=== PATIENT | female | born 1980 | race Caucasian/White ===

== ENCOUNTER 2021-11-21 08:24 | Outpatient (CLI) | payer MEDICARE, OTHER, SELFPAY ==
[2021-11-21 12:52] LABS: Free T4 Free Thyroxine* 0.97 ng/dL (0.70-1.85)
[2021-11-21 13:06] LABS: Thyroid Stimulating Hormone* 0.784 uIU/mL (0.270-4.20)
== END 2021-11-21 08:25 | disposition home or self-care (01) ==
PROVIDERS: PCP Family Medicine; Visit Provider Family Medicine
DX: N91.2 Amenorrhea, unspecified (principal); R79.89 Other specified abnormal findings of blood chemistry; E66.9 Obesity, unspecified
CPT/HCPCS: 84439; 84443

== ENCOUNTER 2022-05-15 09:39 | Outpatient (CLI) | payer MEDICARE, BC, SELFPAY ==
[2022-05-15 12:40] LABS: Albumin* 4.7 g/dL (3.3-5.0)
[2022-05-15 12:41] LABS: Chloride* 105 mmol/L (96-114); Potassium* 4.2 mmol/L (3.6-5.1); Sodium* 141 mmol/L (135-149)
[2022-05-15 12:43] LABS: Bilirubin Total* 0.6 mg/dL (0.1-1.5); Carbon Dioxide* 26 mmol/L (20-32); Cholesterol* 252 mg/dL (90-199); Creatinine* 0.9 mg/dL (0.5-1.5); Estimated Glomerular Filt Rate 82 ml/min; Total Protein* 7.7 g/dL (6.0-8.3)
[2022-05-15 12:44] LABS: Alanine Aminotransferase* 43 U/L (4-35); Alkaline Phosphatase* 81 U/L (40-150); Aspartate Amino Transferase* 32 U/L (12-35); Blood Urea Nitrogen* 21 mg/dL (5-24); Calcium* 9.8 mg/dL (8.4-10.6); Glucose* 86 mg/dL (60-115); HDL Cholesterol* 81 mg/dL (>=50); LDL Cholesterol Calculated 147 mg/dL (<100); Triglycerides* 119 mg/dL (40-149)
[2022-05-15 13:11] LABS: Thyroid Stimulating Hormone* 0.148 uIU/mL (0.270-4.20)
== END 2022-05-15 09:40 | disposition home or self-care (01) ==
PROVIDERS: PCP Family Medicine; Visit Provider Family Medicine
DX: E87.6 Hypokalemia (principal); R53.83 Other fatigue; R73.03 Prediabetes; Z79.899 Other long term (current) drug therapy; N91.2 Amenorrhea, unspecified; E66.9 Obesity, unspecified
CPT/HCPCS: 80053; 80061; 84443

== ENCOUNTER 2022-06-11 12:51 | Outpatient (CLI) | payer MEDICARE, BC, SELFPAY | END 2022-06-11 12:52 | disposition home or self-care (01) | LOC: LKVREF 12:52 | PROVIDERS: PCP Family Medicine; Visit Provider Family Medicine | DX: N91.2 Amenorrhea, unspecified (principal); R79.89 Other specified abnormal findings of blood chemistry | CPT/HCPCS: 84443 ==

== ENCOUNTER 2023-03-02 11:35 | Outpatient (CLI) | payer MEDICARE, BC, SELFPAY | END 2023-03-02 11:36 | disposition home or self-care (01) | PROVIDERS: PCP Family Medicine; Visit Provider Family Medicine | DX: E11.9 Type 2 diabetes mellitus without complications (principal); R63.5 Abnormal weight gain; R73.03 Prediabetes; E87.6 Hypokalemia; E16.2 Hypoglycemia, unspecified; R53.83 Other fatigue; E66.9 Obesity, unspecified; M10.9 Gout, unspecified; Z13.6 Encounter for screening for cardiovascular disorders; Z79.899 Other long term (current) drug therapy | CPT/HCPCS: 80053; 80061; 82043; 82570 ==

== ENCOUNTER 2023-06-15 10:03 | Outpatient (CLI) | payer MEDICARE, BC, SELFPAY ==
--- OUTSIDE RECORDS SUMMARY | 2023-06-15 10:13 | XMS_ITS | Encounter Summary ---
Author Name Unknown Organization [facility] Address [address] [place] [address] Care Team Providers Care Campus Wellness Coordinator Name Role Phone None Reported, Pcp Primary Care Provider Unavail able Encounter Details Date Type Department Care Team (Latest Contact Info) Description 07/22/2022 Clinical Communication Division of route returner in [place], [place] [address] [place] [address] Ector Anaya M.D., D.M.D. [address] [place] [address] Social History Tobacco Use Types Packs/Day Years Used Date Smoking Tobacco: Never Smokeless Tobacco: Never Alcohol Use Standard Drinks/Week Comments No 0 (1 standard drink = 0.6 oz pur e alcohol) Social Connection and Isolat ion Panel [NHANES] Answer Date Recorded In a typical week, how many times do you talk on the phone with family, friends, or neighbors? More than three times a week 04/14/2021 How often do you get togethe r with friends or relatives? Once a week 04/14/2021 How often do you attend chur ch or islam services? Patient declined 04/14/2021 Do you belong to any clubs o r organizations such as pentecostalism groups, unions, fraternal or athletic groups, or school groups? No 04/14/2021 How often do you attend meet ings of the clubs or organizations you belong to? Patient declined 04/14/2021 Are you , , di vorced, , never , or living with a partner? 04/14/2021 AUDIT-C Answer Date Recorded Q1: How often do you have a drink containing alc ohol? Never 04/14/2021 Average Number of Drinks Not on file Frequency of Binge Drinking Not on file 04/02 Overall Financial Resource Strain (CARDIA) Answe r Date Recorded How hard is it for you to pa y for the very basics like food, housing, medical care, and heating? Somewhat hard 04/14/2021 [facility] Occupat [facility] - Occupational Stress Questionnaire Answer Date Recorded Do you feel stress - tense, restless, nervous, or anxious, or unable to sleep at night because your mind is troubled all the time - these days? Very much 04/14/2021 Exercise Vital Sign Answer Date Recorde d On average, how many days pe r week do you engage in moderate to strenuous exercise (like a brisk walk)? 6 days 04/14/2021 On average, how many minutes do you engage in exercise at this level? 60 min 04/14/2021 Hunger Vital Sign Answer Date Recorded Within the past 12 months, y ou worried that your food would run out before you got the money to buy more. Sometimes true Within the past 12 months, t he food you bought just didn't last and you didn't have money to get more. Never true PRAPARE - Transportation Answer Date Re corded In the past 12 months, has l ack of transportation kept you from medical appointments or from getting medications? No 04/02 In the past 12 months, has l ack of transportation kept you from meetings, work, or from getting things needed for daily living? No 04/14/2021 Housing Stability Vital Sign Answer Naif e Recorded In the last 12 months, was t here a time when you were not able to pay the mortgage or rent on time? No 04/14/2021 In the last 12 months, how many places have you lived? 1 04/14/2021 In the last 12 months, was t here a time when you did not have a steady place to sleep or slept in a care home (including now)? No 04/14/2021 Nutrition Answer Date Recorded Nutrition: EVOO Fat Source No 04/14 On average, how many serving s of fruits and vegetables do you eat per day (serving size is equal to 1 cup or approximately the size of a tennis ball)? 0-1 04/14/2021 Dental Answer Date Recorded Dental: Regular Dentist Yes 05/11/19 Employment Answer Date Recorded Employment status Permanently disabled Education Answer Date Recorded What is the highest level of school you have completed or the highest degree you have received? Associate degree: occupational, technical, or vocational program 04/14/2021 Sex and Gender Information Value Date Recorded Sex Assigned at Female 04/19/2017 7:28 PM LAGGING MACHINE OPERATOR Gender Identity Female 04/19/2017 7:28 PM LAGGING MACHINE OPERATOR Sexual Orientation Straight 04/19/2017 7: 28 PM LAGGING MACHINE OPERATOR documented as of this encounter Miscellaneous Notes * Telephone Encounter - Sailaja Perdomo APRN, C.N.P., M.S. - 07/22/2022 9:31 AM CDT Return phone call to patient to discuss concerns. Patient states she has an adhesive allergy in still has the chin tape on her chin from July 17 when she had a LeFort and genioplasty. Discussed that the goal of the tape is to last for 5 days and she is now at that point. The tape may be removed along with adhesive by gently washing with warm soapy water to remove the adhesive. I did discuss she should take Claritin or Zyrtec daily and may also apply Benadryl cream oral low strength hydrocortisone cream to her chin twice daily for the next 4-5 days. documented in this encounter Plan of Treatment Not on file documented as of this encounter Visit Diagnoses Not on filedocumented in this encounter Additional Health Concerns Assessment Noted Time PHQ-9 Depression Total Score: 12 016 2:38 PM CDT documented as of this encounter Care Teams Campus Wellness Coordinator Relationship Specialty Start Date End Date None Reported, Pcp PCP - General Family Medicine 07/17/22 documented as of this encounter
--- OUTSIDE RECORDS SUMMARY | 2023-06-15 10:13 | XMS_ITS | Clinical Summary ---
Author Name Unknown Organization [facility] Address [address] [place] [address] Care Team Providers Care Medical Geneticist Name Role Phone None Reported, Pcp Primary Care Provider Unavail able Source Comments Patient records contain information from all sites at [facility]. For routine questions regarding patient records, call [phone] during business hours, M-F 8:00 AM - 5:00 PM Central Time. Record requests for emergency care only can be directed to [phone] at any time.[facility] Allergies Active Allergy Reactions Criticality Noted Date Comments Adhesive Rash 07/17/2022 Gluten GI intolerance 08/11/2017 Pollen Extracts Other (see comments) 09/10/2016 Medications Medication Sig Dispensed Refills Start Date End Date Status albuterol (for_PROVENTIL HFA,VENTOLIN HFA) 90 mcg/actuation inhaler Inhale 2 puffs every 6 (six) hours as needed for shortness of breath or wheezing. 0 07/27/2010 Active rizatriptan (for_MAXALT) 10 mg tablet Take 10 mg by mouth every 2 (two) hours as needed for migraine. Max dose: 30 mg per 24 hours. 0 Active ibuprofen (ADVIL,MOTRIN) 800 mg tablet Take 800 mg by mouth every 8 (eight) hours as needed for pain. 0 03/14/2018 Active enoxaparin (LOVENOX) 30 mg/0.3 mL injection Inject 0.3 mL (30 mg total) under the skin 2 (two) times a day for 7 days. 4.2 mL 0 07/10/2022 Active furosemide (LASIX) 20 mg tablet Take 20 mg by mouth daily as needed (swelling). 0 06/15/2022 Active naloxegoL (MOVANTIK) 25 mg tablet Take 25 mg by mouth every morning. 0 07/10/2022 Active spironolactone (ALDACTONE) 100 mg tablet Take 100 mg by mouth daily. 0 05/06/2022 Active acetaminophen (TYLENOL) 160 mg/5 mL liquid Take 31.3 mL (1,000 mg total) by mouth every 6 (six) hours as needed for pain. 473 mL 0 07/19/2022 Active chlorhexidine (PERIDEX) 0.12 % mouthwash Swish and spit 15 mL by mouth 2 (two) times a day. 473 mL 0 07/19/2022 Active polyethylene glycol (MIRALAX) 17 gram/dose oral powder Dissolve and take 17 grams by mouth daily as needed for constipation. Dissolve each 17 g dose in 240 mL (8 ounces) of beverage. 510 g 0 07/19/2022 Active sodium chloride (OCEAN) 0.65 % nasal spray Administer 1 spray into each nostril as needed (For congestion). 50 mL 12 07/19/2022 Active loratadine (CLARITIN) 10 mg tablet Take 1 tablet (10 mg total) by mouth daily. 30 tablet 0 07/19/2022 Active ondansetron ODT (ZOFRAN-ODT) 4 mg disintegrating tablet Dissolve 1 tablet (4 mg total) in the mouth every 8 (eight) hours as needed for nausea or vomiting. 20 tablet 0 07/19/2022 Active oxyCODONE (ROXICODONE) 5 mg/5 mL solutionIndications:A cute Pain,Acute Pain Exception Take 5 mL (5 mg total) by mouth every 4 (four) hours as needed for severe pain or score 7-10 of 10 Indication: Acute Pain, Acute Pain Exception. 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: Added automatically from request for surgery [id number] Obstructive Sleep Apnea Adult 04/23/2021 Overview: Added automatically from request for surgery [id number] Malocclusion 04/23/2021 Overview: Added automatically from request for surgery [id number] Degeneration Disc Lumbosacral 10/02/2019 Edema 10/02/2019 Spinal Stenosis Lumbosacral Region 10/02/2019 Hypoglycemia 01/18/2019 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, no personal history of DVT/PE Heterozygous, no personal history of DVT/PE Heterozygous, no personal history of DVT/PE Asthma Mild Persistent 05/31/2018 Obesity Unspecified 05/31/2018 Apnea Sleep Obstructive 05/31/2018 Anxiety 10/17/2017 Celiac Disease 10/17/2017 Mutation Factor V Leiden Heterozygous 12/11/2016 Major Depressive Disorder Single Episode Unspeci fied 09/03/2014 Overview: Depression Major One Episode NOS Asthma Moderate Persistent 12/18/2013 Overview: Asthma Moderate Persistent Hypertension Gestational 02/03/2011 Overview: Hypertension (gestational/transient), antepartum Immunizations Name Administration Dates Next Due DTaP (Infanrix, Tripedia) 06/24/2007 Influenza Split 05/18/2006 Influenza, Seasonal, Injectable 05/20/2007 MMR 08/31/2012 Tdap 06/30/2012,02/07/2011,06/24/2007 Family History Medical History Relation Name Comments Asthma Daughter Olviis Other cancer Father Juwan Brain tumor Diabetes Grandfather Maternal Heart disease Grandfather Maternal Blood disease Grandmother Maternal Diabetes Maternal Grandfather Jose Cancer Mother Mayte Diabetes Mother Mayte Hyperlipidemia Mother Mayte Hypertension Mother Mayte Other cancer Mother Mayte Cervical Ovarian cancer Mother Mayte ADD Son Seth Adhd Learning disorder Son Seth Autism Relation Name Status Comments Daughter Olviis Father Juwan Grandfather Maternal Grandmother Maternal Maternal Grandfather Jose Mother Mayte Ann Social History Tobacco Use Types Packs/Day Years Used Date Smoking Tobacco: Never Smokeless Tobacco: Never Tobacco Cessation:Counseling Given: Not Answered Alcohol Use Standard Drinks/Week Comments No 0 [...] week 04/14/2021 How often do you attend [facility] or christianity services? Patient declined 04/14/2021 Do you belong to any clubs o r organizations such as moravian groups, unions, fraternal or athletic groups, or [...] Average Number of Drinks Not on file 021 Frequency of Binge Drinking Not on file 04/02 Overall Financial Resource Strain (CARDIA) Answe r Date Recorded How hard is it for you to pa y for the very basics like food, housing, medical care, and heating? Somewhat hard 04/14/[address] [facility] Occupat ional [facility] - Occupational Stress Questionnaire Answer Date Recorded [...] place to sleep or slept in a custodial (including now)? No 04/14/2021 Nutrition Answer Date [...] Sex Assigned at Female 04/19/2017 7:28 PM CLAMMER Gender Identity Female 04/19/2017 7:28 PM CLAMMER Sexual Orientation Straight 04/19/2017 7: 28 PM CLAMMER Last Filed Vital Signs Vital Sign Reading Time Taken Comments Blood Pressure 128/68 07/19/2022 1:09 PM CDT Pulse 63 07/19/2022 1:09 PM CDT Temperature 36.4 ??C (97.5 ??F) 07/19/2022 1:09 PM CD T Respiratory Rate 16 07/19/2022 1:09 PM CDT Oxygen Saturation 97% 07/19/2022 1:09 PM CDT Inhaled Oxygen Concentration - - Weight 105 kg (232 lb 9.4 oz) 07/17/2022 6:21 PM CDT Height 165.1 cm (5' 5) 07/17/2022 6:21 PM CDT Body Mass Index 38.7 07/17/2022 6:21 PM CDT Plan of Treatment Health Maintenance Due Date Last Done Comments Depression Monitoring (PHQ-9) 1979 Hepatitis B Vaccines (1 of 3 - 3-dose series) 1979 Hepatitis C Screening 1979 Mammogram 1979 Office Visit for Blood Pressure Check / Re-check 1979 Visit: Chronic Disease, age 18+ 1979 Visit: Medicare Annual Wellness 1979 Pneumococcal vaccine (0-64 years) (1 of 2 - PCV) 09/27/1985 Asthma Action Plan 10/14/2016 12/06/2014 Asthma Control Test Questionnaire 10/14/2016 12/06/2014 Cervical Cancer Screening 08/12/2018 08/13/2015 Lipid (Cholesterol) Screening 12/25/2018 12/25/2013, 07/17/2011 COVID-19 Vaccine ( season) 2023 02/16/2021, 08/17/2020, 07/27/2020 Influenza Vaccine (#1) 2023 , 05/20/2007, 05/20/2007, Additional history exists Creatinine Level (Kidney Function Test) 02/09/2024 02/08/2023, 03/16/2020, 10/09/2019, Additional history exists Potassium Level 02/09/2024 02/08/2023, 03/03, 03/17/2020, Additional history exists Sodium Level 02/09/2024 02/08/2023, 07/01, 06/29/2018, Additional history exists DTaP,Tdap,and Td Vaccines (6 - Td or Tdap) 05/14/2029 05/14/2019, 06/30/2012, 02/07/2011, Additional history exists HIV Screening Completed 01/18/2012 HPV Vaccines Aged Out No longer eligi ble based on patient's age to complete this topic Medical Devices Implanted Type Area Carnival Worker Device Identifier Shelf Expiration Date Model / Serial / Lot Lester Sterlingt 1.5x2 - [id number] - [id number] Implanted:Qty: 1 on 07/17/2022 by Juwan Us M.D., D.D.S. at [facility] Bone or Tissue [employer] 05/03/2027 [id number] / [id number] / Hardware E.G. Pins/Screws/Ro ds Hardware e.g. pins/screws/r ods Back Scrw Mtr Mandib St 2.1x6 - [id number] Implanted:Qty: 1 on 07/17/2022 by Ector Anaya M.D., D.M.D. at [facility] Hardware e.g. pins/screws/r ods Maxilla Depuy Synthes [id number] / / Conversions - Default Historical Implant Device Implanted:08/31 (Quantity not on file) Mesh or Patch Left: Abdomen Description:Body Location - Abd LLQ. Device Status Text - MeshPatch. Stimulator Other Stimulator Other Left: Back Description:Nevro HF10 pain stimulator Advance Directives For more information, please contact: [phone] Latest Code Status on File Code Status Date Activated Date Inactivated Comments Full Code 07/17/2022 6:21 PM 07/19/2022 3:36 PM Question Answer Comments Full Code: Not Discussed Due to: Patient not available Care Teams Medical Geneticist Relationship Specialty Start Date End Date None Reported, Pcp PCP - General Family Medicine 07/17/22
--- OUTSIDE RECORDS SUMMARY | 2023-06-15 10:13 | XMS_ITS | Encounter Summary ---
Author Name Unknown Organization [facility] Address [address] [place] [address] Care Team Providers Care Mathematics Technician Name Role Phone None Reported, Pcp Primary Care Provider Unavail able Reason for Visit * Reason Comments Med Refill Encounter Details Date Type Department Care Team (Late st Contact Info) Description 11/11/2022 Refill Division of supervisor screen printing in [place], [place] [address] [place] [address] Jenn Tamez P.A.-C., M.S. [address] [place] [address] Med Refill Social History Tobacco Use Types Packs/Day Years [...] often do you attend chur ch or yazidi services? Patient declined 04/14/2021 Do you belong to any clubs o r organizations such as gnosticism groups, unions, fraternal or athletic groups, or [...] medical care, and heating? Somewhat hard 04/14/2021 [facility] [place] [facility] of Occupat ional [facility] - Occupational Stress Questionnaire Answer Date Recorded [...] place to sleep or slept in a snf (including now)? No 04/14/2021 Nutrition Answer Date [...] Sex Assigned at Female 04/19/2017 7:28 PM PRESSURE TESTER Gender Identity Female 04/19/2017 7:28 PM PRESSURE TESTER Sexual Orientation Straight 04/19/2017 7: 28 PM PRESSURE TESTER documented as of this encounter Plan of Treatment Not on file documented as of this encounter Visit Diagnoses Not on filedocumented in this encounter Additional Health Concerns Assessment Noted Time PHQ-9 Depression Total Score: 12 016 2:38 PM CDT documented as of this encounter Care Teams Mathematics Technician Relationship Specialty Start Date End Date None Reported, Pcp PCP - General Family Medicine 07/17/22 documented as of this encounter
--- OUTSIDE RECORDS SUMMARY | 2023-06-15 10:13 | XMS_ITS | Encounter Summary ---
Author Name Unknown Organization [facility] Address [address] [place] [address] Care Team Providers Care Rural Electrification Engineer Name Role Phone None Reported, Pcp Primary Care Provider Unavail able Reason for Visit * Reason Comments Med Refill Encounter Details Date Type Department Care Team (Late st Contact Info) Description 09/15/2022 Refill Division of communications systems engineer in [place], [place] [address] [place] [address] Jenn Tamez P.A.-C., M.S. [address] [place] [address] Med Refill Social History Tobacco Use Types [...] often do you attend chur ch or cheondoism services? Patient declined 04/14/2021 Do you belong to any clubs o r organizations such as zoroastrianism groups, unions, fraternal or athletic groups, or [...] medical care, and heating? Somewhat hard 04/14/2021 [facility] of Occupat ional [facility] - Occupational Stress Questionnaire Answer Date Recorded [...] place to sleep or slept in a [place] [facility] [place] facility (including now)? No 04/14/2021 Nutrition Answer Date [...] Sex Assigned at Female 04/19/2017 7:28 PM ROLL LINE OPERATOR Gender Identity Female 04/19/2017 7:28 PM ROLL LINE OPERATOR Sexual Orientation Straight 04/19/2017 7: 28 PM ROLL LINE OPERATOR documented as of this encounter Plan of Treatment Not on file documented as of this encounter Visit Diagnoses Not on filedocumented in this encounter Additional Health Concerns Assessment Noted Time PHQ-9 Depression Total Score: 12 016 2:38 PM CDT documented as of this encounter Care Teams Rural Electrification Engineer Relationship Specialty Start Date End Date None Reported, Pcp PCP - General Family Medicine 07/17/22 documented as of this encounter
--- OUTSIDE RECORDS SUMMARY | 2023-06-15 10:13 | XMS_ITS | Encounter Summary ---
Author Name Unknown Organization [facility] Address [address] [place] [address] Care Team Providers Care Flap Maker Name Role Phone None Reported, Pcp Primary Care Provider Unavail able Reason for Referral * Outpatient (Routine) - Authorized Specialty Diagnoses / Procedures Referred By Frandy acevedo Referred To Contact Dermatology Diagnoses Follow Up Examination Status Post Surgery Procedures Professional Photography Services Ector Anaya M.D., [place]. [address] [place] [address] [facility] Referral ID Status Reason Start Date Expiration Date V isits Requested Visits Authorized [id number] Authorized 10/14/2022 10/14/2023 1 1 * Outpatient (Routine) - Authorized Specialty Diagnoses / Procedures Referred By Frandy acevedo Referred To Contact extrusion line operator Ector Anaya M.D., [place]ad[place]itt[place] [address] [place] [address] [facility] Referral ID Status Reason Start Date Expiration Date V isits Requested Visits Authorized [id number] Authorized 10/14/2022 10/13/2025 1 1 Scheduling Instructions M12 approx 07/18 with photos after Encounter Details Date Type Department Care Team (Late st Contact Info) Description 10/14/2022 Orders Only Division of extrusion line operator in [place], [place] [address] [place] [address] Rae Casey L.D.A. Follow Up Examination Status Post Surgery (Primary Dx) Social History Tobacco Use Types Packs/Day Years [...] 04/14/2021 How often do you attend chur or spiritism services? Patient declined 04/14/2021 Do you belong to any clubs o r organizations such as holiness groups, unions, fraternal or athletic groups, or [...] medical care, and heating? Somewhat hard 04/14/2021 [facility] [facility] Occupat ional Health - Occupational Stress [...] place to sleep or slept in a fci (including now)? No 04/14/2021 Nutrition Answer Date [...] Sex Assigned at Female 04/19/2017 7:28 PM ACCOUNTANT SYSTEMS Gender Identity Female 04/19/2017 7:28 PM ACCOUNTANT SYSTEMS Sexual Orientation Straight 04/19/2017 7: 28 PM ACCOUNTANT SYSTEMS documented as of this encounter Plan of Treatment Scheduled Orders Name Type Priority Associated Diagnoses Orde r Schedule Professional Photography Services Procedures Routine Follow Up Examination Status Post Surgery Expected: 07/06/2023 (Approximate), Expires: 01/15/2024 Scheduled Referrals Name Type Priority Associated Diagnoses Order Schedule extrusion line operator office visit (clinic) Outpatient Referral Routine Expected: 07/19/2023 (Approximate), Expires: 01/15/2024 documented as of this encounter Visit Diagnoses Diagnosis Follow Up Examination Status Post Surgery- Primary documented in this encounter Additional Health Concerns Assessment Noted Time PHQ-9 Depression Total Score: 12 016 2:38 PM CDT documented as of this encounter Care Teams Flap Maker Relationship Specialty Start Date End Date None Reported, Pcp PCP - General Family Medicine 07/17/22 documented as of this encounter
--- OUTSIDE RECORDS SUMMARY | 2023-06-15 10:13 | XMS_ITS | Encounter Summary ---
Author Name Unknown Organization [facility] Address [address] [place] [address] Care Team Providers Care Sample Puller Name Role Phone None Reported, Pcp Primary Care Provider Unavail able Reason for Referral * Outpatient (Routine) - Closed Specialty Diagnoses / Procedures Referred By Frandy acevedo Referred To Contact Ector Anaya M.D., [address] [place] [address] Health System Referral ID Status Reason Start Date Expiration Date Visits Re quested Visits Authorized [id number] Closed 07/16/2022 07/15/2025 1 1 Scheduling Instructions M108/31 @ 11:20 portal Reason for Visit * Outpatient (Routine) - Closed Specialty Diagnoses / Procedures Referred By Frandy acevedo Referred To Contact Ector Anaya M.D., [address] [place] [address] Health System Referral ID Status Reason Start Date Expiration Date Visits Re quested Visits Authorized [id number] Closed 07/16/2022 07/15/2025 1 1 Encounter Details Date Type Department Care Team (Latest Contact Info) Description 08/31/2022 10:45 AM CDT - 08/31/2022 11:59 PM CDT Hospital Encounter Division of quality assurance coordinator in [place], [place] [address] [place] [address] Ector Anaya M.D., Davina. [address] [place] [address] Follow Up Surgery Exam (Primary Dx) Discharge Disposition: Home or Self Care Social History Tobacco Use Types Packs/Day Years [...] often do you attend chur ch or jainism services? Patient declined 04/14/2021 Do you belong to any clubs o r organizations such as episcopalian groups, unions, fraternal or athletic groups, or [...] medical care, and heating? Somewhat hard 04/14/2021 [facility] [place] [facility] Occup[facility] - Occupational Stress [...] place to sleep or slept in a half-way (including now)? No 04/14/2021 Nutrition Answer Date [...] Sex Assigned at Female 04/19/2017 7:28 PM GROCERY STORE COURTESY CLERK Gender Identity Female 04/19/2017 7:28 PM GROCERY STORE COURTESY CLERK Sexual Orientation Straight 04/19/2017 7: 28 PM GROCERY STORE COURTESY CLERK documented as of this encounter Medications at Time of Discharge Medication Sig Dispensed Refills Start Date End Date acetaminophen (TYLENOL) 160 mg/5 mL liquid Take 31.3 mL (1,000 mg total) by mouth every 6 (six) hours as needed for pain. 473 mL 0 07/19/2022 albuterol (for_PROVENTIL HFA,VENTOLIN HFA) 90 mcg/actuation inhaler Inhale 2 puffs every 6 (six) hours as needed for shortness of breath or wheezing. 0 07/27/2010 chlorhexidine (PERIDEX) 0.12 % mouthwash Swish and spit 15 mL by mouth 2 (two) times a day. 473 mL 0 07/19/2022 furosemide (LASIX) 20 mg tablet Take 20 mg by mouth daily as needed (swelling). 0 06/15/2022 ibuprofen (ADVIL,MOTRIN) 800 mg tablet Take 800 mg by mouth every 8 (eight) hours as needed for pain. 0 03/14/2018 loratadine (CLARITIN) 10 mg tablet Take 1 tablet (10 mg total) by mouth daily. 30 tablet 0 07/19/2022 naloxegoL (MOVANTIK) 25 mg tablet Take 25 mg by mouth every morning. 0 07/10/2022 ondansetron ODT (ZOFRAN-ODT) 4 mg disintegrating tablet Dissolve 1 tablet (4 mg total) in the mouth every 8 (eight) hours as needed for nausea or vomiting. 20 tablet 0 07/19/2022 oxyCODONE (ROXICODONE) 5 mg/5 mL solutionIndications:Acu te Pain,Acute Pain Exception Take 5 mL (5 mg total) by mouth every 4 (four) hours as needed for severe pain or score 7-10 of 10 Indication: Acute Pain, Acute Pain Exception. 70 mL 0 07/31/2022 polyethylene glycol (MIRALAX) 17 gram/dose oral powder Dissolve and take 17 grams by mouth daily as needed for constipation. Dissolve each 17 g dose in 240 mL (8 ounces) of beverage. 510 g 0 07/19/2022 rizatriptan (for_MAXALT) 10 mg tablet Take 10 mg by mouth every 2 (two) hours as needed for migraine. Max dose: 30 mg per 24 hours. 0 sodium chloride (OCEAN) 0.65 % nasal spray Administer 1 spray into each nostril as needed (For congestion). 50 mL 12 07/19/2022 spironolactone (ALDACTONE) 100 mg tablet Take 100 mg by mouth daily. 0 05/06/2022 celecoxib (CeleBREX) 200 mg capsule Take 1 capsule (200 mg total) by mouth 2 (two) times a day. 30 capsule 0 07/29/2022 09/15/2022 documented as of this encounter Consult Notes * Jay Greer D.D.S. - 08/31/2022 11:20 AM CDT SUBJECTIVE CHIEF COMPLAINT / REASON FOR VISIT HISTORY OF PRESENT ILLNESS Betsey Godinez is a 41 y.o. female who underwent segmental 2 piece LeFort 1 osteotomy, bilateral sagittal split osteotomy, and inferior border osteotomy on 07/17/22 who presents for post operative evaluation and splint removal. REVIEW OF SYSTEMS Pertinent items are noted in HPI; [facility] OBJECTIVE There were no vitals taken for this visit. PHYSICAL EXAM Physical Exam General: Alert and oriented, No acute distress. Face: No facial swelling or asymmetry. Oral: Class I cuspid and molar occlusion bilateral. Maxilla is stable MICP. No mucosal lesions. No submucosal mass or vestibular swelling. Dentition is grossly intact. Maximal incisal opening within normal limits. Neck: Supple, Non-tender. No palpable cervical lymphadenopathy. No additional findings ASSESSMENT / PLAN S/p 2 piece LeFort, BSSO, inferior border It was a pleasure to evaluate Mrs. Godinez today in conjunction with Dr. Anaya. She has had an uncomplicated post operative course and is without complaints today. She reports minimal pain, some slight paraesthesia in the mental nerve distribution which we explained will resolve with time. Her splint was removed chairside today under local anesthesia. We explained to Mrs. Godinez that she should maintain a soft diet until she can visit with Dr. Del Angel for modification of her current orthodontic brackets and wires. We further elaborates that Mrs. Turcios should cautiously advance her diet as tolerated after she visits with Dr. Del Angel. Mrs. Godinez vocalized good understanding. We will plan to see Mrs. Godinez for repeat post operative evaluation after she has her orthodontic appliances removed and then hopefully at the 1 year post operative edmundo. The patient was seen and discussed with Dr. Anaya. Multiple questions were entertained and answered and the patient was discharged in stable condition. Associated attestation - Ector Anaya M.D., [place]. - 09/01/2022 11:54 AM CDT I saw and evaluated the patient, participating in the benoit portions of the service. I reviewed the resident/fellow???s note. I agree with the resident/fellow???s findings and plan. Ms. Godinez is doing very well postoperatively. I encouraged a soft diet for now, and then she canvery slowly advance her diet over the next few weeks after she has a full arch wire in the maxilla.I explained that loading the jaws early could lead to non-union or mal-union and hardware failure and potential additional surgery. She agreed to this plan. She will begin her postoperative orthodontics this week, and I will see her when she is finished with orthodontics. She had some concerns about a lip lesion. Upon review of postoperative photos, it appears there wasa scrape, maybe from a wire, on the upper lip. Fortunately, it appears to have been very superficial and has healed completely to my eye. She also had some concerns about some of her facial piercings. Although we had asked for them to beremoved prior to surgery, she had been very reluctant to do so. We ended up removing many of them in the operating room for her. She is concerned that one of two nasal piercings was missing, and thatthe ball portions of two of her ear piercings were missing as well. I will look into this and see what we are able to find out. documented in this encounter Plan of Treatment Scheduled Referrals Name Type Priority Associated Diagnoses Order Schedule quality assurance coordinator Post Op (clinic) Outpatient Referral Routine Once for 1 Occurrences starting 08/31/2022 until 08/31/2022 documented as of this encounter Visit Diagnoses Diagnosis Follow Up Surgery Exam- Primary documented in this encounter Additional Health Concerns Assessment Noted Time PHQ-9 Depression Total Score: 12 016 2:38 PM CDT documented as of this encounter Care Teams Sample Puller Relationship Specialty Start Date End Date None Reported, Pcp PCP - General Family Medicine 07/17/22 documented as of this encounter
--- OUTSIDE RECORDS SUMMARY | 2023-06-15 10:13 | XMS_ITS ---
Author Name Unknown Organization [facility] Address [address] [place] [address] Care Team Providers Care Quality Coordinator Name Role Phone Unavailable Unavailable Unavailable Surgery Details Not on file Complications Check Surgery Details section. Procedure Estimated Blood Loss Check Surgery Details section. Procedure Findings Check Surgery Details section. Procedure Specimens Taken Check Surgery Details section.
--- OUTSIDE RECORDS SUMMARY | 2023-06-15 10:13 | XMS_ITS | Encounter Summary ---
Author Name Unknown Organization [facility] Address [address] [place] [address] Care Team Providers Care Auto Travel Counselor Name Role Phone None Reported, Pcp Primary Care Provider Unavail able Encounter Details Date Type Department Care Team ([facility] Contact Info) Description 07/24/2022 Orders Only Division of clay processing labourer in [place], [place] [address] [place] [phone] Sailaja Perdomo, DAJUAN, C.N.P., M.S. [address] [place] [address] Social History Tobacco Use Types Packs/Day Years [...] often do you attend chur ch or religion services? Patient declined 04/14/2021 Do you belong to any clubs o r organizations such as yarsani groups, unions, fraternal or athletic groups, or [...] medical care, and heating? Somewhat hard 04/14/2021 [facility] - Occupational Stress Questionnaire Answer Date [...] place to sleep or slept in a usp (including now)? No 04/14/2021 Nutrition Answer Date [...] Sex Assigned at Female 04/19/2017 7:28 PM SOFTWARE QA MANAGER Gender Identity Female 04/19/2017 7:28 PM SOFTWARE QA MANAGER Sexual Orientation Straight 04/19/2017 7: 28 PM SOFTWARE QA MANAGER documented as of this encounter Plan of Treatment Not on file documented as of this encounter Visit Diagnoses Not on filedocumented in this encounter Additional Health Concerns Assessment Noted Time PHQ-9 Depression Total Score: 12 016 2:38 PM CDT documented as of this encounter Care Teams Auto Travel Counselor Relationship Specialty Start Date End Date None Reported, Pcp PCP - General Family Medicine 07/17/22 documented as of this encounter
--- OUTSIDE RECORDS SUMMARY | 2023-06-15 10:13 | XMS_ITS | Patient Health Record ---
Author Name Unknown Organization [facility] Address [address] [place] [address] [address] [place] [address] Care Team Providers Care Yard Coupler Name Role Phone Zoltan Young Primary Care Provider Stephen Light Unavailable [phone] Navarro Cleveland PA-C Unavailable UnavailBrittany Bridges Unavailable [phone] Zoe Avila Unavailable [phone] Shaila Tavarez Unavailable [phone] ALLERGIES Allergen (clinical drug ingredient) Drug/Non Drug Allergy documented on EMR Reaction Allergy Type Onset Date Status Tegaderm Redness and itching Drug Allergy Active Adhesive Infection - steristrips after surgery Allergy Active RESULTS Component Value Reference Range Notes CT : Lumbar Spine Reviewed date:04/09/2023 08:46:26 AM Interpretation: Performing Lab: Notes/Report: Original Report EXAM: CT LUMBAR SPINE WITHOUT CONTRAST CLINICAL INFORMATION: 42-year-old female presents with spondylosis without myelopathy or radiculopathy. Patient is status post extensive lumbar surgery. TECHNICAL INFORMATION: 3 mm axial sections through the lumbar spine are obtained with sagittal and coronal reformats. No IV or intrathecal contrast was administered. CONTRAST: None. SEDATION: None. COMPARISON: 02/25/2022. INTERPRETATION: INTERPRETATION: Segmentation and Alignment: Lordotic alignment of five lumbar-type vertebrae. Interbody and instrumented posterior spinal fusions are seen from L3 to the sacrum with bilateral iliac screw instrumentation. Sacrum and Sacroiliac joints: The iliac screws traverse the anterior sacroiliac joints bilaterally with adjacent subchondral and medullary sclerosis. L5-S1: Platelike radiolucency persist throughout much of the disc space with no marginal radiolucencies. Solid facet joint fusion is visualized on the left. No hardware loosening or fatigue. Mild residual narrowing of the neural foramina. L4-5 and L3-4: Solid interbody and posterior spinal fusions are seen with no hardware loosening or fatigue. No residual foraminal or canal stenosis at L4-5. L2-3, L1-2 and T12-L1: Mild spondylosis with normal dorsal disc margins at each level, mild facet arthrosis at each level and no stenosis or impingement. Osseous and paraspinous structures: No fracture or avulsion. No destructive bone lesion and no paraspinous mass. A spinal cord stimulator is seen with the leads extending into the posterior thoracic spinal canal through the T12-L1 interlaminar space. Bilateral ovarian cysts. Mild atherosclerotic vascular disease. No aneurysm. CONCLUSION: 1. Grossly unchanged solid interbody and posterior spinal fusions at L4-5 and L3-4 with no hardware loosening or fatigue. 2. Indeterminate interbody fusion at L5-S1 with a solid posterior fusion mass on the left and no hardware loosening or fatigue. 3. Mild degenerative changes at L2-3, L1-2 and T12-L1 without stenosis or impingement. 4. Unchanged iliac screws extending through the anterior sacroiliac joints with adjacent subchondral and medullary sclerosis. We are committed to maintaining high-quality CT images while improving patient safety.? We minimize radiation dose by adjusting the mA and/or kV according to each patient's size. Read by: Dmitriy Hinds M.D. Reviewed and Electronically Signed by: Dmitriy Hinds M.D. X ray : Thoracic spine (Not yet reviewed by provider) Interpretation: Performing Lab: Notes/Report: Original Report EXAM: X-RAY THORACIC SPINE TWO VIEWS COMPARISON: None. CLINICAL INFORMATION: 42 year old Female presents with M546 - Pain in thoracic spine. TECHNICAL INFORMATION: AP and lateral views of the thoracic spine. INTERPRETATION: Twelve rib-bearing thoracic vertebral bodies are present. Thoracic vertebral body heights, alignment and disc space heights are normal. There is 2 spinal cord stimulator electrodes with tips at T7-8 level and at T8-9 level. IMPRESSION: 1. Spinal cord stimulator electrodes in place. 2. No vertebral compression fracture. Read by: Kristopher Day M.D. Reviewed and Electronically Signed by: Kristopher Day M.D. MRI : Lumbar (Not yet review ed by provider) Interpretation: Performing Lab: Notes/Report: Original Report EXAM: MR LUMBAR SPINE WITHOUT CONTRAST CLINICAL INFORMATION: 42 year old Female presents with [id number] - Spondylosis without myelopathy or radiculopathy, lumbar region. Patient prefers [facility] in [place]. Patient states: pain in low back with left leg and foot pain, numbness, and tingling. No groin pain. TECHNICAL INFORMATION: The following MR sequences of the lumbar spine were obtained: 1. Sagittal and axial T2-weighted images. 2. Sagittal and axial T1-weighted images. 3. Sagittal STIR images. IV Contrast: None. Sedation: None. COMPARISON: MR lumbar spine 02/25/2022. CT the lumbar spine 12/11/2020. INTERPRETATION: Osseous structures: Metal artifacts emanating from posterior lumbosacral fusion hardware with paired pedicle screw instrumentation at L3-S1 are present. Minimal metal artifacts emanating from spinal cord stimulator electrodes entering the posterior epidural space at T12-L1 are present. Vertebral body heights are normal. Minimal retrolisthesis at L2-3 is present. No suspicious marrow signal changes are present. Discs: T12-L1 to L2-3 disc space heights are normal with normal disc hydration. There is solid interbody fusion at L4-5 and possible partial solid interbody fusion at L3-4. Uncertain if there is partial solid interbody fusion at L5-S1. Cord: Conus medullaris is normal with its distal end at L1 level. Cauda equina is normal. Interspace detail: L5-S1: Dorsal disc margin is smooth. Spinal canal is capacious. Neural foramina are patent. Facet joints are not well seen. L4-5: Dorsal disc margin is smooth. Spinal canal is capacious. Neural foramina are patent. Facet joints are not well seen. L3-4: Dorsal disc margin is smooth. Spinal canal is capacious. Neural foramina are patent. Right facet joint is not well seen. Left facet joint appears ankylosed. L2-3: Dorsal disc margin is smooth. Spinal canal is capacious. Neural foramina are patent. Both facet joints are not well seen. T12-L1 and L1-2: Dorsal disc margin is smooth. Spinal canal is capacious. Neural foramina are patent. Facet joints are normal. Other findings: Psoas muscles and posterior paraspinal muscles are appropriate for patient's age. IMPRESSION: 1. Summary: Redemonstration of posterior lumbosacral fusion hardware at L3-S1. Minimal retrolisthesis at L2-3 transition level with no disc herniation or disc degeneration. No acute/subacute vertebral compression fracture. 2. Spinal canal: No significant stenosis. 3. Foramina: Patent. Read by: Kristopher Day M.D. Reviewed and Electronically Signed by: Kristopher Day M.D. Urine toxicology (Not yet re viewed by provider) Interpretation:ok to bill- see results Performing Lab: Notes/Report: ok to bill- see results LULI Buprenophine OPI 300 0 AMP Ethanol MET Creatinine MDMA pH Specific [place] BAR BZO OXY See Results MTD Urine toxicology (Not yet re viewed by provider) Interpretation:ok to bill- see results Performing Lab: Notes/Report: ok to bill- see results LULI Buprenophine OPI 300 0 AMP Ethanol MET Creatinine MDMA pH Specific [place] BAR BZO OXY See Results MTD Urine toxicology Reviewed date:09/15/2022 12:04:13 PM Interpretation:See Results Performing Lab: Notes/Report: See Results LULI Buprenophine OPI 300 0 AMP Ethanol MET Creatinine MDMA pH Specific [place] BAR BZO OXY See Results MTD Urine toxicology Reviewed date:01/15/2023 01:47:37 PM Interpretation:see results Performing Lab: Notes/Report: see results LULI Buprenophine OPI 300 0 AMP Ethanol MET Creatinine MDMA pH Specific [place] BAR BZO OXY See Results MTD Urine toxicology Reviewed date:01/15/2023 01:47:37 PM Interpretation:see results Performing Lab: Notes/Report: see results LULI Buprenophine OPI 300 0 AMP Ethanol MET Creatinine MDMA pH Specific [place] BAR BZO OXY See Results MTD REASON FOR REFERRAL Reason Please evaluate and patient with a consultation regarding her low back pain and to assess lumbar fusion status. Please call patient to schedule at [phone]. Lum[address] dated 04/08/23 finding. Diagnosis 1 Spondylosis without myelopathy or radiculopathy, lumbar region (M47.816) Referral Organization [facility] Referring Provider First Name Brittany Referring Provider Last Name Sai Referring Provider Speciality Nurse Prac kala Referred Provider William Contreras Referred Provider Specialty Neurological Surgery General Notes Daria Art 024 01:38:36 PM >Please call the patient to schedule and fax back all notes to [phone]. If you need additional records for this referral, please call [phone]. Thanks! Referral Priority Routine MEDICATIONS Medication SIG (Take, Route, Frequency, Duration) Notes Start Date End Date Status Movantik 25 MG 1 tablet in the morning Orally Once a day for 30 days Pharmacy Active oxyCODONE HCl 10 MG 1 tablet as needed Orally (okay to fill 06/11/2023) every 6-8 hrs, max 2.5 tabs per day for 30 days G89.29 other chronic pain, M47.816 spondylosis lumbar region 06/11/2023 Active Meloxicam 7.5 MG 1 tablet Orally Once a day for 30 days Active metFORMIN HCl 850 MG 1 tablet with a meal Orally Once a day Active Ozempic (0.25 or 0.5 MG/DOSE) 2 MG/3ML as directed Subcutaneous Active Cyclobenzaprine HCl 10 MG 1 tablet at bedtime as needed Orally Once a day for 30 days Pharmacy Active Chlorzoxazone 500 MG 0.5 tablet as needed Orally twice a day for 30 days Pharmacy Active Ibuprofen 800 MG 1 tablet with food or milk as needed Orally Three times a day for 30 days Active SOCIAL HISTORY Tobacco Use: Social History Observation Description Date Details (start date - stop date) Never Smoker NA - NA Sex Assigned At : Social History Observation Description Sex Assigned At Unknown Tobacco Use/Smoking: Question Answer Notes Are you a nonsmoker Alcohol Screen Question Answer Notes Did you have a drink containing alcohol in the p ast year? No Points 0 Interpretation Negative PROBLEMS Problem Type ICD Code Onset Dates Problem Status W/U Status Risk SNOMED Code Notes Problem Opioid dependence, uncomplicated (F11.20) Active confirmed Opioid dependence (81182430) Problem Other chronic pain (G89.29) Active confirmed Chronic pain (05226169) Problem Pain in right hip (M25.551) Active confirmed Right hip pain (170783160211091 ) Problem Pain in left hip (M25.552) Active confirmed Arthralgia of the pelvic region and thigh (359356970) Problem Sacroiliitis, not elsewhere classified (M46.1) Active confirmed Solitary sacroiliitis (968766628) Problem Spondylosis without myelopathy or radiculopathy, 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) Active confirmed Thoracic spondylosis without myelopathy (876580242) Problem Spondylosis without myelopathy or radiculopathy, lumbar region (M47.816) Active confirmed Lumbosacral spondylosis without myelopathy (01992252) Problem Radiculopathy, lumbosacral region (M54.17) Active confirmed Lumbosacral radiculopathy (1957047) Problem Cervicalgia (M54.2) Active confirmed Cervicalgia (71010459) Problem Pain in thoracic spine (M54.6) Active confirmed Pain in thorac ic spine (501573969) Problem Pain in right leg (M79.604) Active confirmed Pain in right leg (817583947) Problem Postlaminectomy syndrome, not elsewhere classified (M96.1) Active confirmed Post-lami nectomy syndrome (94184989) Problem USP (current) use of opiate analgesic (Z79.891) Active confirmed High risk drug monitoring status (148385595) Problem Low back pain, unspecified (M54.50) Active confirmed Low back pain (437904353) Problem Major Depressive Disorder Single Episode Unspecified (F32.9) 09/04/19 15 Active confirmed Major depression, single episode (08423512) VITAL SIGNS Blood pressure diastolic 76 mm Hg 05/26/2023 Height 65 in 05/26/2023 Blood pressure systolic 118 mm Hg 05/26/2023 Weight 218.8 lbs 05/26/2023 BMI 36.41 kg/m2 05/26/2023 Encounters Encounter Location Date Provider Diagnosis [facility] [address] [place] [address] [address] [place] [place] [id number] 06/18/2022 Brittany Sai Spondylosis without myelopathy or radiculopathy, lumbar region M47.816 [facility] [address] [place] [address] [address] [place] [id number] 07/02/2022 Brittany Sai Other chronic pain G89.29 and Spondylosis without myelopathy or radiculopathy, lumbar region M47.816 [facility] [address] [place] [address] [address] [place] [id number] 07/29/2022 Stephen Liao [facility] [address] [place] [address] [address] [place] [id number] 08/03/2022 Brittany Sai Spondylosis without myelopathy or radiculopathy, lumbar region M47.816 [facility] [address] [place] [address] [address] [place] [id number] 08/24/2022 Brittany Sai Spondylosis without myelopathy or radiculopathy, lumbar region M47.816 [facility] [address] [place] [address] [address] [place] [id number] 08/31/2022 Brittany Sai Other chronic pain G89.29 ; Spondylosis without myelopathy or radiculopathy, lumbar region M47.816 ; Opioid dependence, uncomplicated F11.20 and USP (current) use of opiate analgesic Z79.891 [facility] [address] [place] [address] [address] [place] [id number] 09/25/2022 Stephen Liao [facility] [address] [place] [address] [address] [place] [id number] 09/25/2022 Brittany Sai Spondylosis without myelopathy or radiculopathy, lumbar region M47.816 [facility] [address] [place] [address] [address] [place] [id number] 11/05/2022 Shaila Tavarez Other chronic pain G89.29 and Spondylosis without myelopathy or radiculopathy, lumbar region M47.816 [facility] [address] [place] [address] [address] [place] [id number] 11/05/2022 Brittany Sai [facility] [address] [place] [address] [address] [place] [id number] 11/10/2022 Stephen Liao [facility] [address] [place] [address] [address] [place] [id number] 12/01/2022 Stephen Liao [facility] [address] [place] [address] [address] [place] [id number] 12/01/2022 Stephen Liao [facility] [address] [place] [address] [address] [place] [id number] 12/01/2022 Zoe Avila Spondylosis without myelopathy or radiculopathy, lumbar region M47.816 [facility] [address] [place] [address] [address] [place] [id number] 12/01/2022 Stephen Liao [facility] [address] [place] [address] [address] [place] [id number] 01/01/2023 Brittany Sai Other chronic pain G89.29 ; Spondylosis without myelopathy or radiculopathy, lumbar region M47.816 ; Opioid dependence, uncomplicated F11.20 and USP (current) use of opiate analgesic Z79.891 [facility] [address] [place] [address] [address] [place] [id number] 01/09/2023 Stephen Liao [facility] [address] [place] [address] [address] [place] [id number] 01/11/2023 Stephen Liao [facility] [address] [place] [address] [address] [place] [id number] 01/11/2023 Brittany Sai Spondylosis without myelopathy or radiculopathy, lumbar region M47.816 [facility] [address] [place] [address] [address] [place] [id number] 01/11/2023 Stephen Liao [facility] [address] [place] [address] [address] [place] [id number] 02/05/2023 Brittany Sai Spondylosis without myelopathy or radiculopathy, lumbar region M47.816 [facility] [address] [place] [address] [address] [place] [id number] 02/25/2023 Stephen Liao [facility] [address] [place] [address] [address] [place] [id number] 03/01/2023 Stephen Liao [facility] [address] [place] [address] [address] [place] [id number] 03/08/2023 Stephen Liao [facility] [address] [place] [address] [address] [place] [id number] 03/10/2023 Brittany Sai Other chronic pain G89.29 ; Spondylosis without myelopathy or radiculopathy, lumbar region M47.816 ; Pain in thoracic spine M54.6 ; Opioid dependence, uncomplicated F11.20 ; salvage determiner (current) use of opiate analgesic Z79.891 and Encounter for screening for other disorder Z13.89 [facility] [address] [place] [address] [address] [place] [id number] 03/29/2023 Stephen Liao [facility] [address] [place] [address] [address] [place] [id number] 03/31/2023 Brittany Sai Other chronic pain G89.29 ; Spondylosis without myelopathy or radiculopathy, lumbar region M47.816 and Pain in thoracic spine M54.6 [facility] [address] [place] [address] [address] [place] [id number] 05/01/2023 Stephen Liao [facility] [address] [place] [address] [address] [place] [id number] 05/07/2023 Brittany Sai Spondylosis without myelopathy or radiculopathy, lumbar region M47.816 [facility] [address] [place] [address] [address] [place] [id number] 05/26/2023 Brittany Sai Other chronic pain G89.29 ; Spondylosis without myelopathy or radiculopathy, lumbar region M47.816 ; Pain in thoracic spine M54.6 ; Opioid dependence, uncomplicated F11.20 and USP (current) use of opiate analgesic Z79.891 [facility] [address] [place] [id number] 05/26/2023 Stephen Liao [facility] [address] [place] [address] [address] [place] [id number] 05/26/2023 Stephen Liao [facility] [address] [place] [address] [address] [place] [id number] 06/09/2023 Stephen Liao Spondylosis without myelopathy or radiculopathy, lumbar region M47.816 [facility] [address] [place] [address] [address] [place] [id number] 06/09/2023 Stephen Liao [facility] [address] [place] [address] [address] [place] [id number] 06/10/2023 Stephen Liao ASSESSMENTS Encounter Date Diagnosis Assessment Notes Treatment Notes Treatment Clinical Notes 01/11/2023 Spondylosis without myelopathy or radiculopathy, lumbar region (ICD-10 - M47.816) 02/05/2023 Spondylosis without myelopathy or radiculopathy, lumbar region (ICD-10 - M47.816) 03/10/2023 Other chronic pain (ICD-10 - G89.29) Betsey Gutierrez) returns to clinic today for a follow up evaluation regarding her chronic neck, low back, right LE, and mid back pain. We discussed her current symptoms and medications. [facility] was present in clinic today for a reprogramming of Betsey's SCS. I have ordered a lumbar MRI and thoracic XR to [facility] in [place] for further evaluation of her increased pain as well as to check her SCS leads. I advised her to seek further evaluation in ED or UC for her red flag symptoms, low back pain and bladder incontinence, if they continue to persist and worsen. In regards to medications, I have reviewed the [place] [employer] database and did not find any inconsistencies. I have reviewed her last UDS and it was consistent with her current medication regime. Therefore, I discontinued her Oxycodone and started her Percocet as listed above as to provide better management of her painful symptoms. She has completed an updated pain contract as we will continue to prescribe her opiate medication for pain management. This plan was reviewed with the patient, and she was agreeable. I will continue to monitor her medications, and she will follow up in 2 months or sooner if needed. Plan:1. [facility] SCS reprogramming today; [facility] rep present in clinic 2. Order lumbar MRI and thoracic XR due to increased back pain3. Advised to seek further evaluation in ER today due to patient reported red flag symptoms 4. Stop Oxycodone 5MG5. Start Percocet 5-325MG max #4.5 tabs/day per patient request6. Reviewed last UDS - consistent7. Updated pain contract8. Follow up in 3-4 weeks for MRI review, then may return to every 2 month visits Discharge instructions reviewed verbally. Discussed the risks/benefits of prescribed medication. The patient is aware that medication may be discontinued at any time due to poor compliance with visits, and recommended treatment and/or if patient doesn't adhere to the signed pain contract. The patient was instructed to return to the office as scheduled and call with any questions, problems or concerns. 03/31/2023 Other chronic pain (ICD-10 - G89.29) Betsey Gutierrez) returns to clinic today for a follow up evaluation regarding her chronic neck, low back, right LE, and mid back pain. We discussed her current symptoms and medications. I have reviewed her lumbar MRI and thoracic XR dated 03/26/2023 and educated her on the findings in clinic today. I addressed any questions she had pertaining to the imaging findings up to her satisfaction. I have ordered a lumbar CT to [facility] in [place] to assess the status of her lumbar fusion she underwent March 2020. In regards to medications, I have reviewed the [place] [employer] database and did not find any inconsistencies. Therefore, I discontinued her Percocet due to no benefits. I restarted her on Percocet 10-325MG as listed above as to provide better management of her painful symptoms. She has completed an updated pain contract as we will continue to prescribe her opiate medication for pain management. This plan was reviewed with the patient, and she was agreeable. I will continue to monitor her medications, and she will follow up in 2 months or sooner if needed. Plan:1. Reviewed lumbar MRI and thoracic XR2. Order lumbar CT to assess fusion status3. Stop Percocet 5-325MG due to patient request (lack of benefit)4. Refill Oxycodone 10MG #2.5 5. Follow up in 2 months; pt will call in 3 weeks for a medication refill and to schedule next office visit Discharge instructions reviewed verbally. Discussed the risks/benefits of prescribed medication. The patient is aware that medication may be discontinued at any time due to poor compliance with visits, and recommended treatment and/or if patient doesn't adhere to the signed pain contract. The patient was instructed to return to the office as scheduled and call with any questions, problems or concerns. MRI LUMBAR 03/26/2023IMPRESSIO N:1. Summary: Redemonstration of posterior lumbosacral fusion hardware at L3-S1. Minimal retrolisthesis at L2-3 transition level with no disc herniation or disc degeneration. No acute/subacute vertebral compression fracture.2. Spinal canal: No significant stenosis.3. Foramina: Patent. MRI THORACIC 03/26/2023IMPRESSIO N:1. Spinal cord stimulator electrodes in place.2. No vertebral compression fracture. 05/26/2023 Other chronic pain (ICD-10 - G89.29) Betsey Gutierrez) returns to clinic today for a follow up evaluation regarding her chronic neck, low back, right LE, and mid back pain. We discussed her current symptoms and medications. I have reviewed her lumbar CT scan to assess fusion status dated 04/08/2023 and educated her on the findings in clinic today. Due to her CT findings, I have referred her to Dr. Barrow at [facility] for further evaluation of her pain as he previously completed her lumbar fusion revision. In regards to medications, I have reviewed the [facility] database and did not find any inconsistencies. Therefore, I refilled her Oxycodone as listed above as to provide better management of her painful symptoms. She has consented to a UDS in clinic This plan was reviewed with the patient, and she was agreeable. I will continue to monitor her medications, and she will follow up in 1 month or sooner if needed. Plan:1. Reviewed lumbar CT 2. Refer to Dr. Barrow to reassess lumbar fusion status and low back pain (CT LUMBAR Date: 04/08/2023)3. Refill Oxycodone 10MG4. Consider MSER-revisit next visit5. UDS today6. Follow up in one month Discharge instructions reviewed verbally. Discussed the risks/benefits of prescribed medication. The patient is aware that medication may be discontinued at any time due to poor compliance with visits, and recommended treatment and/or if patient doesn't adhere to the signed pain contract. The patient was instructed to return to the office as scheduled and call with any questions, problems or concerns. CT LUMBAR Date: 04/08/2023IMPRESSIO N:1. Grossly unchanged solid interbody and posterior spinal fusions at L4-5 andL3-4 with no hardware loosening or fatigue.2. Indeterminate interbody fusion at L5-S1 with a solid posterior fusion dalila the left and no hardware loosening or fatigue.3. Mild degenerative changes at L2-3, L1-2 and T12-L1 without stenosis orimpingement.4. Unchanged iliac screws extending through the anterior sacroiliac joints withadjacent subchondral and medullary sclerosis. 06/09/2023 Spondylosis without myelopathy or radiculopathy, lumbar region (ICD-10 - M47.816) 01/01/2023 Other chronic pain (ICD-10 - G89.29) Betsey returns to clinic today for a follow up evaluation regarding her chronic neck, low back, right LE, and mid back pain. We discussed her current symptoms and medications. Melina hadley present in clinic today for reprogramming. I have reviewed the [place] [employer] database and did not find any inconsistencies. I have recertified them for the [facility] medical cannabis program today. They consented to a UDS in clinic today as a requirement of the medical cannabis program. Therefore, I refilled her medications as listed above as she continues to note relief without side effects. This plan was reviewed with the patient and she was agreeable. I will continue to monitor her medications and she will follow up in 2 months or sooner if needed. Plan:1. Melina hadley present in clinic today for SCS reprogramming2. Medical cannabis recertification 3. UDS today4. Follow up in 2 months, patient will call in 3 weeks for refill and to schedule next visit Discharge instructions reviewed verbally. Discussed the risks/benefits of prescribed medication. The patient is aware that medication may be discontinued at any time due to poor compliance with visits, and recommended treatment and/or if patient doesn't adhere to the signed pain contract. The patient was instructed to return to the office as scheduled and call with any questions, problems or concerns. 12/01/2022 Spondylosis without myelopathy or radiculopathy, lumbar region (ICD-10 - M47.816) 11/05/2022 Other chronic pain (ICD-10 - G89.29) Jihan returns to clinic today for a follow up evaluation regarding her chronic neck, low back, and right LE pain. I have reviewed the [facility] database and did not find any inconsistencies. We discussed her current symptoms and medications. I will continue with a treatment plan consisting of conservative therapy at this time. I have reviewed her UDS from 08/31/2022 which was negative for Oxycodone and metabolites. I reviewed with her that an inconsistent UDS is a violation of her narcotic contract with [facility] and that further violations may lead to being discharged from medication management. Regarding medications, I have refilled her Oxycodone as she continues to note moderate pain relief with no adverse side effects while taking this medication. This treatment plan was reviewed with Jihan, and she was agreeable. I will continue to monitor her progress, and she will follow up in two months or sooner if needed. Plan:1.Reviewed UDS - Negative for Oxycodone and metabolites 08/31/2022 warning given2. Refill Oxycodone3. Follow up in 2 months, patient will call in 3 weeks for refill and to schedule next visit 4. Patient requesting Nevro reprogramming at Next office visit Discharge instructions reviewed verbally. Discussed the risks/benefits of prescribed medication. The patient is aware that medication may be discontinued at any time due to poor compliance with visits, and recommended treatment and/or if patient doesn't adhere to the signed pain contract. The patient was instructed to return to the office as scheduled and call with any questions, problems or concerns. 09/25/2022 Spondylosis without myelopathy or radiculopathy, lumbar region (ICD-10 - M47.816) 08/24/2022 Spondylosis without myelopathy or radiculopathy, lumbar region (ICD-10 - M47.816) 08/03/2022 Spondylosis without myelopathy or radiculopathy, lumbar region (ICD-10 - M47.816) 07/02/2022 Other chronic pain (ICD-10 - G89.29) Betsey ChavesApple) returns to clinic today for a follow up evaluation regarding her chronic neck, low back, and right LE pain. I have reviewed the [facility] database and did not find any inconsistencies. We discussed her current symptoms and medications. I advised her to follow up with Dr. Barrow to review her EMG results when they are available. She plans to proceed with her 3 in 1 dental surgery in the near future. I informed her that her oral surgeon can manage her post-op pain medications afterwards. I will continue with a treatment plan consisting of conservative therapy at this time. Therefore, I have refilled her medication as listed above as she continues to note pain relief without side effects. I have decreased her Oxycodone from #140 tabs back to her original #135 tabs/month. This treatment plan was reviewed with Apple, and she was agreeable. I will continue to monitor her medications and she will follow up in two months or sooner if needed. Plan:1. Proceed with follow up with Dr. Barrow re: review EMG results2. Patient plans to proceed with dental surgery as scheduled re: oral surgeon to manage post-op pain meds3. Refill and decrease Oxycodone from #140 to #135 tabs/month 4. Follow up in 2 months, patient will call in 3 weeks for refill and to schedule next visit Discharge instructions reviewed verbally. Discussed the risks/benefits of prescribed medication. The patient is aware that medication may be discontinued at any time due to poor compliance with visits, and recommended treatment and/or if patient doesn't adhere to the signed pain contract. The patient was instructed to return to the office as scheduled and call with any questions, problems or concerns. 05/05/2022 Pelvis XRIMPRESSION: No acute fracture or dislocation identified. Hip joint spaces are preserved. Incompletely imaged lumbosacral fusion with bilateral SI fusion. 05/05/2022 Knee XRIMPRESSION: No acute fracture or dislocation identified. No lipohemarthrosis. Mild patellofemoral and medical tibiofemoral compartment osteoarthritis. 05/05/2022 Foot XRIMPRESSION: No acute fracture or dislocation identified. Cortical thickening second through fith metatarsals may be related to old injury or stress related injury. Plantar heel spur and achilles enthesopathy. 05/05/[address] ScanIMPRESSION: There is no CT evidence of acute fracture or dislocation. The C1 ring, odontoid process, and craniocervical junction are intact. The cervical spinal canal is widely patent. Vertberal body and disc heights are maintained. There is no high-grade neural foraminal canal stenosis. There is no precertebral soft tissue swelling. The lung apices are clear. Soft tissues are unremarkable. 05/05/[address] ScanIMPRESSION: There is no acute fracture, dislocation, or compresion deformity. There is normal thoracic kyphosis. Vertebral body and disc heights are maintained. There is a spine stimulator device that terminates at T8. As visualized upper abdominal organs appear unremarkable. 05/05/[address] ScanIMPRESSION: There are 5 nonrib-bearing lumbar-type vertebral bodies. There are posterior decompresion and fusion changes with vertical barajas, transpecdicular screws, and interbody disc spacers from L3 through the sacroiliac joints. Hardwear appears intact. There is normal lumbar lordosis. Zena is no spondylolisthesis. There is no evidence of acute fracture, dislocation, or hardware abnormaily. Certebral body heights are maintained. There is a spine simulator device noted terminating off the [id number] in the thoracic spine. There is cholexytecomy clips. Visualized abdominal and pelvic organs appear unremarkable. IMPRESSION of all CT Scans 05/05/2022: No CT evidence of acute fracture or dislocation with the cervical, thoracic, or lumbar spine. Posterior decompression and fusion changes with vertical rods and transpedicular screws from L3 throught he SIJ without evidence of complications. 06/18/2022 Spondylosis without myelopathy or radiculopathy, lumbar region (ICD-10 - M47.816) 08/31/2022 Other chronic pain (ICD-10 - G89.29) Betsey Gutierrez) returns to clinic today for a follow up evaluation regarding her chronic neck, low back, and right LE pain. I have reviewed the [facility] database and did not find any inconsistencies. We discussed her current symptoms and medications. I advised her to follow up with Dr. Barrow to review her EMG results when they are available. She will continue to follow up with her oral surgeon for her postoperative dental care as she is able. I will continue with a treatment plan consisting of conservative therapy at this time. Therefore, I have refilled her medication as listed above as she continues to note pain relief without side effects. Apple consented to an updated UDS today in compliance with her high risk monitoring. This treatment plan was reviewed with Apple, and she was agreeable. I will continue to monitor her medications and she will follow up in two months or sooner if needed. Plan:1. Proceed with follow up with Dr. Barrow re: review EMG results2. Continue to follow up with oral surgeon re: post operative dental care3. Refill Oxycodone 5mg #135 tabs/month, reassess ability to wean next visit 4. UDS today5. Follow up in 2 months, patient will call in 3 weeks for refill and to schedule next visit Discharge instructions reviewed verbally. Discussed the risks/benefits of prescribed medication. The patient is aware that medication may be discontinued at any time due to poor compliance with visits, and recommended treatment and/or if patient doesn't adhere to the signed pain contract. The patient was instructed to return to the office as scheduled and call with any questions, problems or concerns. 05/07/2023 Spondylosis without myelopathy or radiculopathy, lumbar region (ICD-10 - M47.816) 08/31/2022 Spondylosis without myelopathy or radiculopathy, lumbar region (ICD-10 - M47.816) 07/02/2022 Spondylosis without myelopathy or radiculopathy, lumbar region (ICD-10 - M47.816) 11/05/2022 Spondylosis without myelopathy or radiculopathy, lumbar region (ICD-10 - M47.816) 01/01/2023 Spondylosis without myelopathy or radiculopathy, lumbar region (ICD-10 - M47.816) 05/26/2023 Spondylosis without myelopathy or radiculopathy, lumbar region (ICD-10 - M47.816) 03/31/2023 Spondylosis without myelopathy or radiculopathy, lumbar region (ICD-10 - M47.816) 03/10/2023 Spondylosis without myelopathy or radiculopathy, lumbar region (ICD-10 - M47.816) 03/10/2023 Pain in thoracic spine (ICD-10 - M54.6) 03/31/2023 Pain in thoracic spine (ICD-10 - M54.6) 05/26/2023 Pain in thoracic spine (ICD-10 - M54.6) 08/31/2022 Opioid dependence, uncomplicated (ICD-10 - F11.20) 01/01/2023 Opioid dependence, uncomplicated (ICD-10 - F11.20) 08/31/2022 salvage determiner (current) use of opiate analgesic (ICD-10 - Z79.891) 01/01/2023 USP (current) use of opiate analgesic (ICD-10 - Z79.891) 05/26/2023 Opioid dependence, uncomplicated (ICD-10 - F11.20) 03/10/2023 Opioid dependence, uncomplicated (ICD-10 - F11.20) 03/10/2023 USP (current) use of opiate analgesic (ICD-10 - Z79.891) 05/26/2023 salvage determiner (current) use of opiate analgesic (ICD-10 - Z79.891) 03/10/2023 Encounter for screening for other disorder (ICD-10 - Z13.89) As a component of this patient being on a long-term controlled-substanc e medication for chronic pain we performed screening questionnaire tests for drug misuse (DAST), alcohol misuse (AUDIT), and mental health imbalances (PHQ-9 for depression and EMELINA-7 for anxiety) as recommended by the Centers for Disease Control to evaluate for risk factors for opioid-related harms before starting and periodically during continuation of opioid therapy. Along with the screening questionnaires, 15 minutes of time was used to assess and educate the patient on the risks of misusing pain medication and the risks of taking narcotic pain medication in conjunction with other mood altering substances such as alcohol, benzodiazepines and other drugs (prescribed or not). 05/26/2023 Other Karla, Miryam Us, am serving as a scribe to document services personally performed by Brittany Gibbs NP, based upon my observations and the provider's statements to me. All documentation has been reviewed by the aforementioned RN ADMIT. I, Brittany Gibbs NP, attest that the above named individual is acting in scribe capacity, has observed my performance of the services and has documented them in accordance with my direction. The documentation recorded by the scribe accurately reflects the service I personally performed and the decisions made during the clinic visit. 07/02/2022 Other I, Mitali Fawad, am serving as a scribe to document services personally performed by Brittany Gibbs NP, based upon my observations and the provider's statements to me. All documentation has been reviewed by the aforementioned RN ADMIT. I, Brittany Gibbs NP, attest that the above named individual is acting in scribe capacity, has observed my performance of the services and has documented them in accordance with my direction. The documentation recorded by the scribe accurately reflects the service I personally performed and the decisions made during the clinic visit. 08/31/2022 Other I, Michelle carter, am serving as a scribe to document services personally performed by Brittany Gibbs NP, based upon my observations and the provider's statements to me. All documentation has been reviewed by the aforementioned RN ADMIT. I, Brittany Gibbs NP, attest that the above named individual is acting in scribe capacity, has observed my performance of the services and has documented them in accordance with my direction. The documentation recorded by the scribe accurately reflects the service I personally performed and the decisions made during the clinic visit. 11/05/2022 Other I, Anabel Kowalski, am serving as a scribe to document services personally performed by Shaila Tavarez NP, based upon my observations and the provider's statements to me. All documentation has been reviewed by the aforementioned RN ADMIT. I, Shaila Tavarez NP, attest that the above named individual is acting in scribe capacity, has observed my performance of the services and has documented them in accordance with my direction. The documentation recorded by the scribe accurately reflects the service I personally performed and the decisions made during the clinic visit. 01/01/2023 Other Karla, Reina Qureshi , am serving as a scribe to document services personally performed by Brittany Gibbs NP, based upon my observations and the provider's statements to me. All documentation has been reviewed by the aforementioned RN ADMIT. I, Brittany Gibbs NP, attest that the above named individual is acting in scribe capacity, has observed my performance of the services and has documented them in accordance with my direction. The documentation recorded by the scribe accurately reflects the service I personally performed and the decisions made during the clinic visit. 03/10/2023 Other Miryam Acosta, am serving as a scribe to document services personally performed by Brittany Gibbs NP, based upon my observations and the provider's statements to me. All documentation has been reviewed by the aforementioned RN ADMIT as well as Stephen Liao MD, prior to being entered into the official medical record. IStephen MD attest that the above named individual is acting in scribe capacity, has observed Brittany Gibbs's performance of the services and has documented them in accordance with her direction. The documentation recorded by the scribe accurately reflects the service Brittany Gibbs NP, and Stephen Liao MD, personally performed and the decisions made by them. 03/31/2023 Other Miryam Acosta, am serving as a scribe to document services personally performed by Brittany Gibbs NP, based upon my observations and the provider's statements to me. All documentation has been reviewed by the aforementioned RN ADMIT. I, Brittany Gibbs NP, attest that the above named individual is acting in scribe capacity, has observed my performance of the services and has documented them in accordance with my direction. The documentation recorded by the scribe accurately reflects the service I personally performed and the decisions made during the clinic visit. PLAN OF TREATMENT Pending Test Test Name Order Date Urine toxicology 05/26/2023 CT : Lumbar Spine 01/02/2022 MRI : Cervical Spines 02/24/2022 MRI : Lumbar 03/10/2023 MRI : Lumbar 10/21/2020 MRI : Lumbar 01/02/2022 X ray : Thoracic spine 03/10/2023 Next Appt Details Provider Name:Brittany Gibbs , 06/30/2023 09:00:00 AM, [address] [place] [address], [facility] [address], [place], [address], Insurance Providers Payer Name Payer Address Payer Phone Subscriber Number Group Number Insured Name Patient Relationship to Insured Coverage Start Date Coverage End Date Medicare Part B [employer] [facility] [address] [facility] [place] [address] [id number] Betsey Godinez Self - patient is the insured 1 [employer] [place] PMAP [address] [address] [place] [address] [id number] Betsey Godinez Self - patient is the insured 2 [facility] [address] [address] [place], [place] [id number] Betsey Godinez Self - patient is the insured [employer] [place] PM[place] [address] [address] [place] [address] [id number] Betsey Godinez Self - patient is the insured MEDICATIONS ADMINISTERED Medication Instructions Date of Administration Dosage Notes Toradol 02/20/2019 2 units MEDICAL (GENERAL) HISTORY Medical History History ICD Code Bleeding Disorders Depression Anxiety Asthma Anemia Arthritis Migraines Headaches Sleep Apnea Diverticulitis PTSD Prediabetic Low Sodium Celiac Reactive Hypoglycemia Surgical History Surgery Date(Month/Year) Anterior Spine Fusion L3-S1 06/2018 Posterior Spine Fusion L3-S1 06/2018 Laminoforaminotomy L4-S1 06/2018 Salpingectomy x4 Skin removal Carpal tunnel Lumpectomy on heel Hernia Spinal Cord Stimulator Trial 09/2019 Nevro SCS Implant 10/31/2019 Fusion Revision 03/15/2020 Jaw surgery 07/2022
--- OUTSIDE RECORDS SUMMARY | 2023-06-15 10:13 | XMS_ITS | Referral Summary ---
Author Name Unknown Organization [facility] Address [address] [place] [address] Care Team Providers Care Registration Rep Name Role Phone None Reported, Pcp Primary Care Provider Unavail able Source Comments Patient records contain information from all sites at [facility]. For routine questions regarding patient records, call [phone] during business hours, M-F 8:00 AM - 5:00 PM Central Time. Record requests for emergency care only can be directed to [phone] at any time.[facility] Allergies Active Allergy Reactions Criticality Noted [...] Overview: Added automatically from request for surgery [id number] Obstructive Sleep Apnea Adult 04/23/2021 Overview: Added automatically from request for surgery [id number] Malocclusion 04/23/2021 Overview: Added automatically from request for surgery [id number] Degeneration Disc Lumbosacral 10/02/2019 Edema 10/02/2019 Spinal [...] Seasonal, Injectable 05/20/2007 MMR 08/31/2012 Tdap 06/30/2012,02/07/2011,06/24/2007 Social History Tobacco Use Types Packs/Day Years [...] How often do you attend chur or mosque services? Patient declined 04/14/2021 Do you belong to any clubs o r organizations such as rastafari groups, unions, fraternal or athletic groups, or [...] medical care, and heating? Somewhat hard 04/14/2021 [facility] - Occupational Stress [...] place to sleep or slept in a nursing home (including now)? No 04/14/2021 Nutrition Answer [...] Sex Assigned at Female 04/19/2017 7:28 PM CRNA Gender Identity Female 04/19/2017 7:28 PM CRNA Sexual Orientation Straight 04/19/2017 7: 28 PM CRNA Last Filed Vital Signs Vital Sign Reading [...] 07/17/2022 6:21 PM CDT Plan of Treatment Not on file Medical Devices Implanted Type Area Single Needle Tufting Machine Operator Device Identifier Shelf Expiration Date Model / Serial / Lot Lester Espinoza Algrft 1.5x2 - [id number] - [id number] Implanted:Qty: 1 on 07/17/2022 by Juwan Us M.D., D.D.S. at [facility] Bone or Tissue [employer] 05/03/2027 [id number] / [id number] / Hardware E.G. Pins/Screws/Ro ds Hardware e.g. pins/screws/r ods Back Scrw Mtr [address] 2.1x6 - [id number] Implanted:Qty: 1 on 07/17/2022 by Ector Anaya M.D., D.M.D. at [facility] Hardware e.g. pins/screws/r ods Maxilla [employer]s [id number] 36.01 / / Conversions - Default Historical Implant Device Implanted:08/31 (Quantity not on file) Mesh or Patch Left: Abdomen Description:Body Location - Abd LLQ. Device Status Text - MeshPatch. Stimulator Other Stimulator Other Left: Back Description:Nevro HF10 pain stimulator Advance Directives For more information, please contact: [phone] Latest Code Status on File Code Status Date Activated Date Inactivated Comments Full Code 07/17/2022 6:21 PM 07/19/2022 3:36 PM Question Answer Comments Full Code: Not Discussed Due to: Patient not available Care Teams Registration Rep Relationship Specialty Start Date End Date None Reported, Pcp PCP - General Family Medicine 07/17/22
--- OUTSIDE RECORDS SUMMARY | 2023-06-15 10:13 | XMS_ITS | Encounter Summary ---
Author Name Unknown Organization [facility] Address [address] [place] [address] Care Team Providers Care Electrician Deck Name Role Phone None Reported, Pcp Primary Care Provider Unavail able Reason for Visit * Reason Comments Med Refill Encounter Details Date Type Department Care Team (Late st Contact Info) Description 11/24/2022 Refill Division of personalized living manager in [place], [place] [address] [place] [address] Jenn Tamez P.A.-C., M.S. [address] [place] [address] Med Refill Social History Tobacco Use Types [...] often do you attend chur ch or hoahaoism services? Patient declined 04/14/2021 Do you belong to any clubs o r organizations such as jehovah's witness groups, unions, fraternal or athletic groups, or [...] medical care, and heating? Somewhat hard 04/14/2021 [facility] - Occupational Stress Questionnaire Answer Date [...] place to sleep or slept in a penitentiary (including now)? No 04/14/2021 Nutrition Answer Date [...] Sex Assigned at Female 04/19/2017 7:28 PM DIESEL ENGINE MECHANIC Gender Identity Female 04/19/2017 7:28 PM DIESEL ENGINE MECHANIC Sexual Orientation Straight 04/19/2017 7: 28 PM DIESEL ENGINE MECHANIC documented as of this encounter Plan of Treatment Not on file documented as of this encounter Visit Diagnoses Not on filedocumented in this encounter Additional Health Concerns Assessment Noted Time PHQ-9 Depression Total Score: 12 016 2:38 PM CDT documented as of this encounter Care Teams Electrician Deck Relationship Specialty Start Date End Date None Reported, Pcp PCP - General Family Medicine 07/17/22 documented as of this encounter
--- OUTSIDE RECORDS SUMMARY | 2023-06-15 10:13 | XMS_ITS | Encounter Summary ---
Author Name Unknown Organization [facility] Address [address] [place] [address] Care Team Providers Care Formulation Chemist Name Role Phone None Reported, Pcp Primary Care Provider Unavail able Reason for Visit * Reason Comments Med Refill Encounter Details Date Type Department Care Team (Late st Contact Info) Description 10/23/2022 Refill Division of band straightener in [place], [place] [address] [place] [address] Jenn Tamez P.A.-C., M.S. [address] [place] [address] Med Refill Social History Tobacco Use Types [...] any clubs o r organizations such as christian groups, unions, fraternal or athletic groups, or [...] medical care, and heating? Somewhat hard 04/14/2021 [facility] Occupat ional [facility] - Occupational Stress Questionnaire Answer Date [...] Sex Assigned at Female 04/19/2017 7:28 PM PETROLEUM TERMINAL PLANT OPERATOR Gender Identity Female 04/19/2017 7:28 PM PETROLEUM TERMINAL PLANT OPERATOR Sexual Orientation Straight 04/19/2017 7: 28 PM PETROLEUM TERMINAL PLANT OPERATOR documented as of this encounter Plan of Treatment Not on file documented as of this encounter Visit Diagnoses Not on filedocumented in this encounter Additional Health Concerns Assessment Noted Time PHQ-9 Depression Total Score: 12 016 2:38 PM CDT documented as of this encounter Care Teams Formulation Chemist Relationship Specialty Start Date End Date None Reported, Pcp PCP - General Family Medicine 07/17/22 documented as of this encounter
--- OUTSIDE RECORDS SUMMARY | 2023-06-15 10:13 | XMS_ITS | Encounter Summary ---
Author Name Unknown Organization [facility] Address [address] [place] [address] Care Team Providers Care Patents Examiner Name Role Phone None Reported, Pcp Primary Care Provider Unavail able Reason for Referral * Outpatient (Routine) - Closed Specialty Diagnoses / Procedures Referred By Frandy acevedo Referred To Contact Video Medicine Diagnoses Follow Up Examination Status Post Surgery Ector Anaya M.D., Galen.MYulyDYuly [address] [place] [address] [facility] Referral ID Status Reason Start Date Expiration Date Visits Re quested Visits Authorized [id number] Closed 07/16/2022 07/16/2023 1 1 Scheduling Instructions VIDEO/RES to see calendar on 07/30 @ 1:30 /portal Reason for Visit * Outpatient (Routine) - Closed Specialty Diagnoses / Procedures Referred By Frandy acevedo Referred To Contact Video Medicine Diagnoses Follow Up Examination Status Post Surgery Ector Anaya M.D., GalenRigoberto [address] [place] [address] [facility] Referral ID Status Reason Start Date Expiration Date Visits Re quested Visits Authorized [id number] Closed 07/16/2022 07/16/2023 1 1 Encounter Details Date Type Department Care Team (Latest Contact Info) Description 07/30/2022 1:31 PM CDT - 07/30/2022 2:14 PM CDT Hospital Encounter Division of geoscience specialist in [place], [place] [address] [place] [address] Ector Anaya M.D., Davina. [address] [place] [id number] Follow Up Examination Status Post Surgery (Primary [...] How often do you attend chur or shinto services? Patient declined 04/14/2021 Do you belong to any clubs o r organizations such as yazidism groups, unions, fraternal or athletic groups, or [...] medical care, and heating? Somewhat hard 04/14/2021 [facility] of Occupat ional Health - Occupational Stress [...] place to sleep or slept in a assisted (including now)? No 04/14/2021 Nutrition Answer Date [...] Sex Assigned at Female 04/19/2017 7:28 PM BORDER MACHINE OPERATOR Gender Identity Female 04/19/2017 7:28 PM BORDER MACHINE OPERATOR Sexual Orientation Straight 04/19/2017 7: 28 PM BORDER MACHINE OPERATOR documented as of this encounter Medications at [...] 100 mg by mouth daily. 0 05/06/2022 amoxicillin-pot clavulanate (AUGMENTIN) 400-57 mg/5 mL suspension Take 10.94 mL (875 mg total) by mouth every 12 (twelve) hours for 10 days. Shake Well. 300 mL 0 07/19/2022 08/02/2022 celecoxib (CeleBREX) 200 mg capsule Take 1 capsule (200 mg total) by mouth 2 (two) times a day. 30 capsule 0 07/29/2022 09/15/2022 oxyCODONE (ROXICODONE) 5 mg/5 mL solutionIndications:Acu te Pain,Acute Pain Exception Take 5-10 mL (5-10 mg total) by mouth every 4 (four) hours as needed for severe pain or score 7-10 of 10 Indication: Acute Pain, Acute Pain Exception. 50 mL 0 07/29/2022 07/31/2022 documented as of this encounter Progress Notes * Juwan Us M.D., D.D.S. - 07/30/2022 1:40 PM CDT SUBJECTIVE CHIEF COMPLAINT / REASON FOR VISIT Betsey Godinez is a 41 y.o. female who presents for 2 week follow-up. HISTORY OF PRESENT ILLNESS Mrs. Godinez presents back by video for 2 week follow-up after undergoing segmental LeFort osteotomy of the maxilla, bilateral sagittal split osteotomy of the mandible, and mortise genioglossus advancement. She reports that she has maintained a no chew diet and has been primarily eating smoothies, mauritanian yogurt, and water. She is not had any trouble with getting the elastics on and off. She reports that she continues to bite into the splint. She has had some intermittent pain. Sometimes it is worse on the right compared to the left and vice versa. REVIEW OF SYSTEMS Pertinent items are noted in HPI; all other systems were reviewed per CVIP. OBJECTIVE There were no vitals taken for this visit. PHYSICAL EXAM Physical Exam General: Alert and oriented, No acute distress. Face: Mild bilateral facial edema consistent with surgery Oral: Splint appears to be intact, teeth appear to come into the splint ASSESSMENT / PLAN 1. Follow Up Examination Status Post Surgery Mrs. Godinez is a pleasant 41-year-old female that presents via video for follow-up after undergoing orthognathic surgery. Overall she is doing well. She has had some issues with pain management but reports that she is comfortable when she takes the pain medications. I discussed with her continuing a no chew diet and continuing to maintain hydration. We also discussed continued activity restrictions and holding off on working out and lifting anything over 10 lb until she is seen back at the 6 week follow-up. This will be in person. She also continued to maintain a no chew diet until follow-up at 6 weeks. Discussed with her that her swelling will continue to resolve. Multiple questions welcome then answered. Associated attestation - Ector Anaya M.D., John - 07/30/2022 4:01 PM CDT I reviewed the case with the resident/fellow but did not see the patient. I agree with the assessment and plan as documented in the resident/fellow's note. documented in this encounter Miscellaneous Notes * Addendum Note - Ector Anaya M.D., Davina. - 07/30/2022 1:40 PM CDT Encounter addended by: Ector Anaya M.D., John on: 07/30/2022 4:01 PM Actions taken: Cosign clinical note with attestation, Level of Service modified, Visit diagnoses modified documented in this encounter Plan of Treatment Scheduled Referrals Name Type Priority Associated Diagnoses Orde r Schedule Video anyplace visit Outpatient Referral Routine Follow Up Examination Status Post Surgery Once for 1 Occurrences starting 07/30/2022 until 07/30/2022 documented as of this encounter Visit Diagnoses Diagnosis Follow Up Examination Status Post Surgery- Primary documented in this encounter Additional Health Concerns Assessment Noted Time PHQ-9 Depression Total Score: 12 016 2:38 PM CDT documented as of this encounter Care Teams Patents Examiner Relationship Specialty Start Date End Date None Reported, Pcp PCP - General Family Medicine 07/17/22 documented as of this encounter
--- OUTSIDE RECORDS SUMMARY | 2023-06-15 10:13 | XMS_ITS | Encounter Summary ---
Author Name Unknown Organization [facility] Address [address] [place] [address] Care Team Providers Care Blueberry Grower Name Role Phone None Reported, Pcp Primary Care Provider Unavail able Reason for Visit * Reason Comments Med Refill Encounter Details Date Type Department Care Team (Late st Contact Info) Description 10/05/2022 Refill Division of medical equipment technician in [place], [place] [address] [place] [address] Jenn Tamez P.A.-C., M.S. [address] [place] [address] Med Refill Social History Tobacco Use Types [...] often do you attend chur ch or confucianism services? Patient declined 04/14/2021 Do you belong to any clubs o r organizations such as confucianism groups, unions, fraternal or athletic groups, or [...] medical care, and heating? Somewhat hard 04/14/2021 [facility] of Occupat ional [facility] - Occupational Stress Questionnaire Answer Date [...] Sex Assigned at Female 04/19/2017 7:28 PM VOCATIONAL TRAINER Gender Identity Female 04/19/2017 7:28 PM VOCATIONAL TRAINER Sexual Orientation Straight 04/19/2017 7: 28 PM VOCATIONAL TRAINER documented as of this encounter Plan of Treatment Not on file documented as of this encounter Visit Diagnoses Not on filedocumented in this encounter Additional Health Concerns Assessment Noted Time PHQ-9 Depression Total Score: 12 016 2:38 PM CDT documented as of this encounter Care Teams Blueberry Grower Relationship Specialty Start Date End Date None Reported, Pcp PCP - General Family Medicine 07/17/22 documented as of this encounter
--- OUTSIDE RECORDS SUMMARY | 2023-06-15 10:14 | XMS_ITS | Encounter Summary ---
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] Obstructive Sleep Apnea Adult [G47.33] Malocclusion [M26.4] Mutation Factor V Leiden Heterozygous (HCC) [D68.51] Procedures WV LEFORT I-2 PIECE WO GRFT WV RCNST LWR JAW W ADVANCE OSTEOTOMY MAXILLA/2 piece lefort OTHER/genioglossus advancement Referral ID Status Reason Start Date Expiration Date Visits Re quested Visits Authorized [id number] 1 1 Encounter Details Date Type Department Care Team (Latest Contact Info) Description 07/17/2022 6:24 AM CDT - 07/19/2022 1:36 PM CDT Hospital Encounter [facility], Sixth Floor [address] [place] [id number] Ector Anaya M.D., D.MNeville. [address] [place] [address] Sfrfsauimn Maxillary (Primary Dx) Discharge Disposition: Home or Self [...] How often do you attend chur or pentecostal services? Patient declined 04/14/2021 Do you belong to any clubs o r organizations such as caodaism groups, unions, fraternal or athletic groups, or [...] medical care, and heating? Somewhat hard 04/14/2021 [facility] [place] [facility] Occupat ional [facility] - Occupational Stress [...] place to sleep or slept in a detention (including now)? No 04/14/2021 Nutrition Answer Date [...] Sex Assigned at Female 04/19/2017 7:28 PM TOUR CONSULTANT Gender Identity Female 04/19/2017 7:28 PM TOUR CONSULTANT Sexual Orientation Straight 04/19/2017 7: 28 PM TOUR CONSULTANT documented as of this encounter Last Filed Vital Signs Vital Sign Reading [...] Mass Index 38.7 07/17/2022 6:21 PM CDT documented in this encounter Discharge Summaries * Jay Greer D.D.S. - 07/19/2022 8:32 AM CDT DISCHARGE SUMMARY BRIEF OVERVIEW Hospital: [facility] Discharge Provider: Ector Anaya M.D. Primary Team: RST legal assistant - Jaclyn Primary Care Providers: None Reported, Pcp (General) No address on file Primary Care Provider Phone Number: None Primary Care Provider Fax Number: None Other Providers: None Admission Date: 07/17/2022 Discharge Date: 07/19/2022 PRINCIPAL DIAGNOSIS Hypoplasia Maxillary SECONDARY DIAGNOSES Principal Problem: Hypoplasia Maxillary Active Problems: Mutation Factor V Leiden Heterozygous (HCC) Obstructive Sleep Apnea Adult Malocclusion Resolved Problems: * No resolved hospital problems. * Surgery Information This Encounter Past Procedures (07/19/2021 to Today) Date Procedures Providers Location 07/17/2022 OSTEOTOMY MAXILLA, 2 piece lefort., OTHER genioglossus advancement., OSTEOTOMY BILATERALSAGITTAL-SPLIT RAMUS MANDIBLE. Ector Anaya M.D., [place].M.Galen.Juwan Us M.D., D.D.S.Rudy Garcia D.M.D., M.S. RST RONT OR DISCHARGE DISPOSITION Home or Self Care [1] OUTPATIENT FOLLOW UP Scheduled Appointments 07/30/2022 1:40 PM Ector Anaya M.D., [place].M.[place]. legal assistant 08/31/2022 11:20 AM Ector Anaya M.D., [place].M.[place]. legal assistant For appointment details refer to your Patient Appointment Guide. 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 Anaya[facility] service. The patient was brought to the operating room where general anesthesia was provided via nasoendotracheal intubation. She underwent 2 piece LeFort Osteotomy, Bilateral Sagittal Split Osteotomy, and Genioglossus advancement with splint and guiding elastics placement. The patient tolerated the procedure and anesthesiawell and was brought to the post- anesthesia care unit in stable condition. Following adequate recovery from anesthesia, the patient was admitted to the floor where the hospitalization continued uneventfully. Her pain was well controlled with oral pain medication that had to be crushed. Elastic teachings were performed and the patient was discharged tolerating oral intake with pain well controlledon liquid oral medication, ambulating independently, and voiding spontaneously. The patient is returning home and received appropriate instruction and materials for ongoing care. We will follow up with Mrs. Betsey Godinez in an appropriate time frame. CONSULTS ORDERED DURING THIS ADMISSION IP CONSULT TO DIETITIAN CONDITION AT DISCHARGE stable Discharge instructions were provided to the patient and caregiver(s). Total time spent in discharge services today: 60 minutes. documented in this encounter Discharge Instructions * Attachments The following attachments cannot be sent through Care Everywhere. * Acetaminophen (By mouth) (Marshallese) * Amoxicillin/Clavulanate Potassium (By mouth) (Marshallese) * Celecoxib (By mouth) (Marshallese) * Chlorhexidine (Into the mouth) (Marshallese) * Loratadine (By mouth) (Marshallese) * Oxycodone, Rapid Release (By mouth) (Marshallese) * Polyethylene Glycol 3350 (By mouth) (Marshallese) * Sodium Chloride (Into the nose) (Marshallese) documented in this encounter Medications at Time of Discharge Medication Sig Dispensed Refills Start Date End Date acetaminophen (TYLENOL) 160 mg/5 mL liquid Take 31.3 mL (1,000 mg total) by mouth every 6 (six) hours as needed for pain. 473 mL 0 07/19/2022 chlorhexidine (PERIDEX) 0.12 % mouthwash Swish and spit 15 mL by mouth 2 (two) times a day. 473 mL 0 07/19/2022 furosemide (LASIX) 20 mg tablet Take 20 mg by mouth daily as needed (swelling). 0 06/15/2022 ibuprofen (ADVIL,MOTRIN) 800 mg tablet Take 800 mg by mouth every 8 (eight) hours as needed for pain. 0 03/14/2018 naloxegoL (MOVANTIK) 25 mg tablet Take 25 mg by mouth every morning. 0 07/10/2022 polyethylene glycol (MIRALAX) 17 gram/dose oral powder Dissolve and take 17 grams by mouth daily as needed for constipation. Dissolve each 17 g dose in 240 mL (8 ounces) of beverage. 510 g 0 07/19/2022 spironolactone (ALDACTONE) 100 mg tablet Take 100 mg by mouth daily. 0 05/06/2022 albuterol (for_PROVENTIL HFA,VENTOLIN HFA) 90 mcg/actuation inhaler Inhale 2 puffs every 6 (six) hours as needed for shortness of breath or wheezing. 0 07/27/2010 loratadine (CLARITIN) 10 mg tablet Take 1 tablet (10 mg total) by mouth daily. 30 tablet 0 07/19/2022 ondansetron ODT (ZOFRAN-ODT) 4 mg disintegrating tablet Dissolve 1 tablet (4 mg total) in the mouth every 8 (eight) hours as needed for nausea or vomiting. 20 tablet 0 07/19/2022 rizatriptan (for_MAXALT) 10 mg tablet Take 10 mg by mouth every 2 (two) hours as needed for migraine. Max dose: 30 mg per 24 hours. 0 sodium chloride (OCEAN) 0.65 % nasal spray Administer 1 spray into each nostril as needed (For congestion). 50 mL 12 07/19/2022 amoxicillin-pot clavulanate (AUGMENTIN) 400-57 mg/5 mL suspension Take 10.94 mL (875 mg total) by mouth every 12 (twelve) hours for 10 days. Shake Well. 300 mL 0 07/19/2022 08/02/2022 celecoxib (CeleBREX) 200 mg capsule Take 1 capsule (200 mg total) by mouth 2 (two) times a day. 20 capsule 0 07/19/2022 07/29/2022 oxyCODONE (ROXICODONE) 5 mg/5 mL solutionIndications:Acu te Pain Take 10 mL (10 mg total) by mouth every 4 (four) hours as needed for severe pain or score 7-10 of 10 Indication: Acute Pain. 180 mL 0 07/19/2022 07/24/2022 documented as of this encounter Progress Notes * Jay Greer D.D.S. - 07/19/2022 8:15 AM CDT SUBJECTIVE HISTORY OF PRESENT ILLNESS Ms. Godinez is without complaints this morning. No acute events overnight. Pain control with oxycodone. She is tolerating liquid diet with 1350 mL of intake. Reports no nausea and no vomiting. Patient is voiding independently. I/O last 3 completed shifts: In: 1550 [P.O.:1350] Out: 1600 [Urine:1600] OBJECTIVE VITAL SIGNS Temperature: [36.5 ??C] 36.5 ??C Heart Rate: [60-82] 60 Resp Rate: [17-18] 17 Blood Pressure: (105-154)/(47-73) 105/47 SpO2: [89 %-99 %] 94 % Pulse Rate: [54-77] 54 PHYSICAL EXAMINATION General: AAO, NAD, Resting comfortably Face: Symmetrically swollen bilaterally consistent with surgery. Oral: Splint in occlusion with bilateral class III elastics. Maxillary gingiva is pink and healthy.Mandibular midline is left of the maxillary midline. DIAGNOSTICS ASSESSMENT / PLAN #1 Mutation Factor V Leiden Heterozygous (HCC) #2 Hypoplasia Maxillary #3 Obstructive Sleep Apnea Adult #4 Malocclusion Hospital Day: 3 Ms. Godinez is 2 Day Post-Op Procedure(s): OSTEOTOMY MAXILLA, 2 piece lefort. OTHER genioglossus advancement. OSTEOTOMY BILATERAL SAGITTAL-SPLIT RAMUS MANDIBLE. She is doing well post-operatively. She had adequate PO intake for discharge for a total of 1350 mL. Pain controlled with 70 mg of Oxycodone yesterday, 30 mg today, and scheduled Tylenol and Celebrex. We will plan for discharge with liquid medications where possible at a pharmacy of her choice. PLAN FOR TODAY: Elastic Teachings Discharge Liquid Augmentin Liquid Oxycodone Celebrex Tylenol Activity: As tolerated VTE Prophylaxis: SCDs Bowel Regimen: MiraLAX Pain: acetaminophen, oxycodone, Celebrex Antibiotics: continue perioperative antibiotics Disposition: Discharge. Please contact S at [phone] with questions or concerns. * Summer Jain Pharm.D., R.Ph. - 07/18/2022 12:06 PM CDT Pharmacist Progress Note Reason for admission: s/p OSTEOTOMY MAXILLA, 2 piece lefort. OTHER genioglossus advancement; OSTEOTOMY BILATERAL SAGITTAL-SPLIT RAMUS MANDIBLE 07/17/22 PMH: MIKAELA, depression, asthma, anxiety OBJECTIVE Home medications: Held: None Changed: None Prophylaxis: Sub-q heparin three times daily ASSESSMENT / PLAN Pain scores 7-10/10, continues sched apap, oxy PRN and celecoxib bid Unasyn started 07/17 for surgical proph, consider adding stop date or transitioning to PO abx regimen. Changes to medications anticipated at discharge: pain/bowel regimen, abx Summer Jain Pharm.D., R.Ph. * Jo Schaffer D.T.R. - 07/18/2022 11:19 AM CDT Clinical Nutrition: Education/Counseling DESCRIPTION Ms. Godinez is being seen for Blenderized diet education. ASSESSMENT Patient receptive to diet education, all questions answered at this time. See education activity for details. PLAN If patient remains hospitalized, will provide nutrition assessment per departmental guidelines. For questions about patient's nutritional care please contact pager [phone] on weekdays or [phone] on weekends/holidays. * Jay Greer D.D.SYuly - 07/18/2022 7:26 AM CDT SUBJECTIVE HISTORY OF PRESENT ILLNESS Ms. Godinez is without complaints this morning. No acute events overnight. Pain control with oxycodone, Dilaudid pushes. She is tolerating liquid diet with 250 mL of intake. Reports no nausea and novomiting. Patient is voiding independently. Pain consult was placed yesterday who evaluated our pain regimen and agreed with our approach. They further stated they do not manage spinal stimulators. I/O last 3 completed shifts: In: 3046.6 [P.O.:250] Out: 1950 [Urine:1750; Blood:200] OBJECTIVE VITAL SIGNS Temperature: [36.7 ??C-37 ??C] 37 ??C Heart Rate: [62-101] 72 Resp Rate: [10-20] 18 Blood Pressure: (94-161)/(35-93) 104/62 Arterial Line BP: (156-158)/(87) 158/87 SpO2: [94 %-100 %] 96 % Pulse Rate: [62-100] 69 PHYSICAL EXAMINATION General: AAO, NAD, Resting comfortably Face: Symmetrically swollen bilaterally consistent with surgery. Oral: Splint in occlusion with bilateral class III elastics. Maxillary gingiva is pink and healthy. DIAGNOSTICS Recent Labs 07/17/22 0909 HGB 12.7 NA 141 ASSESSMENT / PLAN #1 Mutation Factor V Leiden Heterozygous (HCC) #2 Hypoplasia Maxillary #3 Obstructive Sleep Apnea Adult #4 Malocclusion Hospital Day: 2 Ms. Godinez is 1 Day Post-Op Procedure(s): OSTEOTOMY MAXILLA, 2 piece lefort. OTHER genioglossus advancement. OSTEOTOMY BILATERAL SAGITTAL-SPLIT RAMUS MANDIBLE. She is doing well post-operatively. We will discontinue her IV Dilaudid pushes, and increase the dosage and frequency of our oral oxycodone while taking into account her baseline oxycodone usage of 5mg TID. Patient restarted her spinal stimulator with a remote bedside on morning rounds. PLAN FOR TODAY: Adult Blenderized diet. Encourage nutrition as charged PO intake has only been water. Goal intake is 1 L Continue with pain regimen Contact service of patient is reporting significant pain with current regiment Continue with Abx CHX rinses BID Activity: As tolerated VTE Prophylaxis: SCDs Bowel Regimen: MiraLAX Pain: acetaminophen, oxycodone, Celebrex Antibiotics: continue perioperative antibiotics Disposition: General Floor Care tomorrow Please contact OMS at [phone] with questions or concerns. * Doreen Choi, Pharm.D., R.Ph. - 07/17/2022 7:22 AM CDT Images from the original note were not included. Admission Medication History Note Adherence issues: No concerns Medication list source: Patient and Pharmacy or dispense records Prior to Admission Medications Med List Status: Pharmacy Complete Set By: Doreen Choi, Pharm.D., R.Ph. at 07/17/2022 7:22 AM Taking? Last Dose Informant Start Date End Date LT albuterol (for_PROVENTIL HFA,VENTOLIN HFA) 90 mcg/actuation inhaler -- -- 07/27/10 -- Inhale 2 puffs every 6 (six) hours as needed for shortness of breath or wheezing. enoxaparin (LOVENOX) 30 mg/0.3 mL injection -- -- 07/10/22 07/17/22 Inject 0.3 mL (30 mg total) under the skin 2 (two) times a day for 7 days. Notes: Has not started yet. To start after surgery furosemide (LASIX) 20 mg tablet 07/16/2022 at am -- 06/15/22 -- Take 20 mg by mouth daily as needed (swelling). ibuprofen (ADVIL,MOTRIN) 800 mg tablet 07/13/2022 -- 03/14/18 -- Take 800 mg by mouth every 8 (eight) hours as needed for pain. naloxegoL (MOVANTIK) 25 mg tablet 07/16/2022 -- 07/10/22 -- Take 25 mg by mouth every morning. oxyCODONE (ROXICODONE) 5 mg immediate release tablet 07/16/2022 -- 03/18/20 -- Take 5 mg by mouth every 6 (six) hours as needed for pain. rizatriptan (for_MAXALT) 10 mg tablet More than a month -- -- -- Take 10 mg by mouth every 2 (two) hours as needed for migraine. Max dose: 30 mg per 24 hours. spironolactone (ALDACTONE) 100 mg tablet 07/16/2022 -- 05/06/22 -- Take 100 mg by mouth daily. documented in this encounter Nursing Notes * Ida Pichardo R.N. - 07/19/2022 12:48 PM CDT Shift Goals: Discharge Identify possible barriers to meeting goals/advancing plan of care: none End of Shift Summary: AVS was reviewed with the patient and all questions answered. OMS service didband education with the patient. Vitally stable, tolerating oral intake and managing pain with oralpain medications. Prescriptions sent to [facility] pharmacy. Patient discharged to home self-care. Take care! Electronically signed by: Ida Pichardo R.N. 07/19/22 12:51 PM CDT Problem: PAIN - ADULT Goal: PT VERBALIZES/DEMONSTRATES ADEQUATE COMFORT LEVEL OR BASELINE Outcome: Completed Problem: KNOWLEDGE DEFICIT Goal: Patient/family/caregiver demonstrates understanding of disease process, treatment plan, medications, and discharge instructions Outcome: Completed Problem: INFECTION - ADULT Goal: Absence of infection during hospitalization Outcome: Completed Problem: SKIN/TISSUE INTEGRITY Goal: Skin/Tissue integrity maintained or improved Outcome: Completed Goal: Oral and Nasal mucous membranes remain intact Outcome: Completed Problem: SAFETY ADULT Goal: Maintain a safe environment Outcome: Completed Problem: DISCHARGE PLANNING Goal: Patient discharge needs identified Outcome: Completed Problem: SAFETY ADULT - RISK FOR FALL AND OR FALL INJURY Goal: Patient remains free from fall/fall injury Outcome: Completed Problem: POTENTIAL OR ACTUAL PRESSURE INJURY-ADULT Goal: Manage sensory Perception deficits to maintain and/or improve skin integrity Outcome: Completed Goal: Maintain optimal skin moisture to ensure or improve skin integrity Outcome: Completed Goal: Achieve optimal activity and/or mobility to maintain or improve skin integrity Outcome: Completed Goal: Nutrient intake appropriate for improving, restoring or maintaining skin integrity Outcome: Completed Goal: Minimize friction and/or shear to maintain or improve skin integrity Outcome: Completed Problem: Compromised Skin Integrity Goal: Skin/Tissue integrity maintained or improved Outcome: Completed Goal: Oral and Nasal mucous membranes remain intact Outcome: Completed Goal: Incisions, wounds, or drain sites healing without S/S of infection Outcome: Completed Problem: Incontinence and/or Moisture Goal: Skin integrity is maintained or improved Outcome: Completed documented in this encounter OR Notes * Op Note - Ector Anaya M.D., John - 07/17/2022 8:41 AM CDT Pre-op Diagnosis Hypoplasia Maxillary,Hyperplasia mandible, Obstructive Sleep Apnea Adult,Malocclusion Post-op Diagnosis Hypoplasia Maxillary,Hyperplasia mandible, Obstructive Sleep Apnea Adult,Malocclusion A social media assistant actively participated and was necessary for one or more of the following: opening, exposure and visualization during the case, maintaining hemostasis, wound closure resulting in itssafe and expeditious completion. Findings As expected. Complications None Operative Note Narrative Betsey Godinez was taken to the operating room and had an uneventful induction of general nasalendotracheal anesthesia. She was prepared in routine fashion for maxillofacial reconstruction. A proper surgical pause was then performed in order to verify correct patient surgical sites, and the presence of appropriate surgical splints and internal fixation devices. The surgical guide splints were inserted and fit well. Surgery was initiated in the maxilla utilizing a standard sublabial incision and dissection to expose the entire midface region to the inferior orbital rims bilaterally and including intranasal dissection and disarticulation of the septum from the maxilla. We placed the custom-designed drill and cut guide and the sagittal saw and piezo surgical unit were used to outline a standard LeFort I maxillary osteotomy approximately 6 to 7 mm above the roots of the cuspid and molar teeth. We pre drilled the areas plan for fixation. After removing the guide, osteotomes were used to disarticulate the lateral nasal sidewalls and the pterygoid plates, and the maxilla down fractured without difficulty. Itwas mobilized with disimpaction forceps. The septum itself was exposed and reduced only as necessary to prevent any dislocation of the septum towards the left or right nasal cavity, and this was thenclosed with 4-0 chromic suture. After adequate mobilization, we made our interdental osteotomy withthe piezo unit between teeth 9 and 8, extending this as a paramedian osteotomy along the right palate posteriorly. This without difficulty, and there was no evident injury to the dental roots. The final splint was inserted and wired in place using interdental wires for the posterior teeth. This helped widen the maxilla as planned. We then placed the fixation plate along the maxilla. We placed the intermediate sandwich splint and found that, after removal of a small amount of interfering bone, the maxilla and fixation plate moved and rotated into its preplanned position. We then placed the remainder of the screws in the maxillary plate. The maxilla was hemostatic. On release of thefixation, we found passive movement of the mandible back up into the splint. The maxilla was then irrigated thoroughly with saline. We placed bone graft from previously-harvested and removed bone in the interdental and palatal osteotomies. An alar cinch suture utilizing 3-0 Mersilene was placed to reapproximate the alar base at the measured pre-surgical width. The mucosa was then closed in a standard manner with 4-0 vicryl rapide suture in the usual watertight fashion, with running horizontal mattress followed by a simple running suture. In the mandible, the procedure was performed the same way on both sides. Local anesthesia was infiltrated and a stepped cautery incision made down the external oblique ridge with subperiosteal dissection on the medial ramus as well as the lateral mandibular body. The medial aspect of the ramus including the lingula, perineural fat, and neurovascular bundle were positively identified. We placed the drill guide and performed initial drill holes for the fixation. This was removed, and the osteotomy was created using the Jia bur for the horizontal and vertical cuts and the piezoelectric unit for the sagittal cuts. This was followed by sequential osteotome technique, and the mandible was split on both sides with the nerve in the distal segment uninjured. The mandible was then mobilized, and the mobilized mandible ligated to the stable maxilla. Selective bone removal was performed whileprotecting the nerve to permit passive seating of the proximal segments onto the distal bilaterally. Fixation of the mandibular segments was achieved with the prefabricated custom mandibular plates. After this, we verified that the movements were as-planned. We noted that she did have some symmetric open bite anteriorly, but this was felt to be related to impingement on the posterior aspect of the final splint. Postoperative CT scanning also confirmed this. Thus, satisfied that the position of mandible was correct, the wound was irrigated thoroughly and closed with 4-0 vicryl rapide suture. We performed osseous genioplasty with genial tubercle advancement. Incision was made in the labial mucosa anteriorly and down through the mentalis muscles as a stepped incision. We then skeletonized the anterior chin and protected the mental foramina. The cut guide was placed, and the genioplasty performed with piezo and sagittal saw. The holes were also predrilled. After we removed the guide, wewere able to complete the cuts and separate the bone at the site of planned advancement. We kept the inferior border the same, but advanced the genial tubercles about 1 cm, using 10 and 12-mm screws to fixate to the lingual cortex on of that smaller segment. Hemostasis was achieved, and we applied the rest of the prefabricated plate. We then closed this wound by using 4-0 Vicryl for the mentalis muscle closure and placed 4-0 Vicryl Rapide suture in watertight fashion for the mucosal closure. Tape was placed on the skin of the chin in the usual manner to assist in reattachment of the mentalis muscle. All counts were then verified correct, and she was awakened uneventfully from anesthesia, extubated, and taken to the PACU for further care. Ector Anaya M.D., AsadM.Galen. * Brief Op Note - Rudy Garcia D.M.D., M.S. - 07/17/2022 8:41 AM CDT Pre-op Diagnosis Hypoplasia Maxillary,Obstructive Sleep Apnea Adult,Malocclusion,Mutation Factor V Leiden Heterozygous (HCC) Post-op Diagnosis Hypoplasia Maxillary,Obstructive Sleep Apnea Adult,Malocclusion,Mutation Factor V Leiden Heterozygous (HCC) Findings As expected. Complications None Rudy Garcia D.M.D., M.S. documented in this encounter Miscellaneous Notes * Hospital Course - Jay Greer D.D.S. - 07/18/2022 10:13 AM CDT The patient was routinely admitted in the morning to Dr. Anaya's [facility]. The patient was brought to the operating room where general anesthesia was provided via nasoendotracheal intubation. She underwent 2 piece LeFort Osteotomy, Bilateral Sagittal Split Osteotomy, and Genioglossus advancement with splint and guiding elastics placement. The patient tolerated the procedure and anesthesiawell and was brought to the post- anesthesia care unit in stable condition. Following adequate recovery from anesthesia, the patient was admitted to the floor where the hospitalization continued uneventfully. Her pain was well controlled with oral pain medication that had to be crushed. Elastic teachings were performed and the patient was discharged tolerating oral intake with pain well controlledon liquid oral medication, ambulating independently, and voiding spontaneously. The patient is returning home and received appropriate instruction and materials for ongoing care. documented in this encounter Plan of Treatment Not on file documented as of this encounter Procedures Procedure Name Priority Date/Time Associated Diagnosis Comments REMOTE OXIMETRY MONITORING CONT. Routine 07/18/2022 8:01 AM CDT REMOTE OXIMETRY MONITORING CONT. Routine 07/17/2022 8:01 PM CDT REMOTE OXIMETRY MONITORING CONT. Routine 07/17/2022 6:21 PM CDT REMOTE OXIMETRY MONITORING CONT. Routine 07/17/2022 6:21 PM CDT REMOTE OXIMETRY MONITORING CONT. 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) OTHER 07/17/2022 7:16 AM CDT 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 Factor V Leiden Heterozygous (HCC) OSTEOTOMY MAXILLA 07/17/2022 7:1 6 AM CDT 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 Factor V Leiden Heterozygous (HCC) documented in this encounter Results * Patient Status (07/17/2022 9:09 AM CDT) Temperature 36.3 37.0 deg C 07/17/2022 9:09 AM CDT STMA FIO2 0.45 0.21=AIR 07/17/2022 9:09 AM CDT STMA Blood 07/17/2022 9:09 AM CDT 07/17/2022 9:09 AM CDT Makayla Wu APRN, ILAN LAB BLOOD NON AD D-ON [facility] [address] [place] [address], [facility] [address] [place] [address] * Glucose, Whole Blood (07/17/2022 9:09 AM CDT) Glucose 115 70 - 140 mg/dL 07/17/2022 9:13 AM CDT STMA Blood (Blood, Arterial Line) 07/17/2022 9:09 AM CDT 07/17/2022 9:09 AM CDT Jaci Mercado M.D. LAB BLOOD ADD-ON [facility] [address] [place], [place] [id number] [place] [address] [address] [place] [address] * Potassium, Blood (07/17/2022 9:09 AM CDT) Potassium, B 3.8 3.6 - 5.2 mmol/L 07/17/2022 9:13 AM CDT STMA Blood (Blood, Arterial Line) 07/17/2022 9:09 AM CDT 07/17/2022 9:09 AM CDT Jaci Mercado M.D. LAB BLOOD NON ADD-ON Performing Organization Address City/[facility]/ZIP Co de Phone Number [facility] [address] [place], [place] [id number] [place] [address] [address] [place] [address] * Sodium, B (07/17/2022 9:09 AM CDT) Sodium, B 141 135 - 145 mmol/L 07/17/2022 9:13 AM CDT [facility] Blood (Blood, Arterial Line) 07/17/2022 9:09 AM CDT 07/17/2022 9:09 AM CDT Jaci Mercado M.D. LAB BLOOD NON ADD-ON [facility] [address] [place], [place] [address] [address] [place] [address] * Calcium, Ionized (07/17/2022 9:09 AM CDT) Calcium, Ionized, B 4.92 4.65 - 5.30 mg/dL 07/17/2022 9:13 AM CDT STMA Blood (Blood, Arterial Line) 07/17/2022 9:09 AM CDT 07/17/2022 9:09 AM CDT Jaci Mercado M.D. LAB BLOOD NON ADD-ON [facility] [address] [place] [address], [facility] STMA [facility] [address] [place] [address] * (ABNORMAL) Blood Gas with Coox, Arterial (07/17/2022 9:09 AM CDT) pO2 162(H) 83 - 108 mm Hg 07/17/2022 9:13 AM CDT STMA pCO2 39 32 - 45 mm Hg 07/17/2022 9:13 AM CDT STMA pH 7.38 7.35 - 7.45 pH 07/17/2022 9:13 AM CDT STMA Base Excess -2 -2 - 3 mmol/L 07/17/2022 9:13 AM CDT STMA HCO3 23 22 - 26 mmol/L 07/17/2022 9:13 AM CDT STMA Hemoglobin, Venous 12.7 11.6 - 15.0 g/dL 07/17/2022 9:13 AM CDT STMA O2Hb 98.9(H) 94.0 - 98.0 % 07/17/2022 9:13 AM CDT STMA COHb 1.8 <3.0 % 07/17/2022 9:13 AM CDT STMA MetHb <1.0 <1.5 % 07/17/2022 9:13 AM CDT STMA CtO2 17.9(L) 18.0 - 21.0 vol % 07/17/2022 9:13 AM CDT STMA Blood (Blood, Arterial Line) 07/17/2022 9:09 AM CDT 07/17/2022 9:09 AM CDT Jaci Mercado M.D. LAB BLOOD NON ADD-ON [facility] [address] [facility] [address] [place] [address] * Antibody Identification, Erythrocytes (07/17/2022 8:57 AM CDT) Pathologist [facility] Antibody Identification No antibody detected 07/17/2022 12:14 PM CDT DTL 07/17/2022 8:57 AM CDT 07/17/2022 9:12 AM CDT Narrative [facility] - 07/17/2022 12:14 PM CDT Specimen Information: Specimen ID: [id number] Specimen Collection Start Date: 07/17/2022 ??8:57 AM Specimen Received Date: 07/17/2022 ??9:12 AM Specimen ID: [id number] Specimen Collection Start Date: 07/17/2022 ??8:57 AM Specimen Received Date: 07/17/2022 ??9:12 AM Makayla Wu APRN, CRNA LAB BLOOD BANK T EST ORDERABLES [facility] [address] [place] [address], [facility] [address] [place] [address] * Type and Screen (with reflex Antibody ID) (07/17/2022 8:57 AM CDT) Pathologist [facility] ABORh B Pos Not applicable 07/17/2022 9:42 AM CDT STRM Antibody Screen Positive Negative 07/17/2022 10:06 AM CDT STRM Type & Screen Expiration 07/20/2022 23:59 07/17/2022 9:42 AM CDT STRM Testing Location [place] DEFAULT 07/17/2022 9:12 AM CDT STRM Blood (Blood, Venous) 07/17/2022 8:57 AM CDT 07/17/2022 9:12 AM CDT Jaci Mercado M.D. 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 Factor V Leiden Heterozygous (HCC) documented in this encounter Administered Medications Inactive Administered Medications - up to 3 most recent administrations Medication Order MAR Action Action Date Dose Rate Site acetaminophen 160 mg/5 mL liquid 1,000 mg (TYLENOL) 1,000 mg, oral, Every 6 hours, First dose on Wed07/17/22 at 2000 Given 07/19/2022 9:28 AM CDT 1,000 mg Given 07/19/2022 1:32 AM CDT 1,000 mg Given 07/18/2022 8:34 PM CDT 1,000 mg acetaminophen injection 1,000 mg 1,000 mg, intravenous, at 400 mL/hr, Administer over 15 Minutes, Once as needed, other, If patient has not received in previous 6 hours, Starting on Wed07/17/22 at 1510, For 1 dose, PACU (only), Oral unless RASS less than -1 or nausea/vomiting. Do not use if given in last 6 hours, Restriction Criteria (Pharmacy will review and approve if criteria met): Unable to take or tolerate medications administered via the enteral route or orally (not just NPO) New Bag 07/17/2022 3:14 PM CDT 1,000 mg 400 mL/hr acetaminophen tablet 1,000 mg (TYLENOL) 1,000 mg, oral, Once, On Wed07/17/22 at 0700, For 1 dose, Pre-Op Given 07/17/2022 7:26 AM CDT 1,000 mg ampicillin-sulbactam 3 g in NaCl 0.9% IVPB (UNASYN) 3 g, intravenous, at 400 mL/hr, Administer over 15 Minutes, Every 6 hours, First dose on Wed07/17/22 at 1830, Mini-Bag Plus bag, Drug Monitoring Program: Pharmacist to adjust medication dosing based on indication and drug clearance factors., Indications: Prophylaxis, surgical New Bag 07/19/2022 5:47 AM CDT 3 g 400 mL/hr New Bag 07/19/2022 1:30 AM CDT 3 g 400 mL/hr New Bag 07/18/2022 5:32 PM CDT 3 g 400 mL/hr celecoxib capsule 200 mg (CeleBREX) 200 mg, oral, 2 times daily, First dose on Wed07/17/22 at 2100 Given 07/18/2022 8:34 PM CDT 200 mg Given 07/18/2022 8:44 AM CDT 200 mg Given 07/17/2022 8:09 PM CDT 200 mg chlorhexidine 0.12 % mouthwash 15 mL (PERIDEX) 15 mL, swish & spit, 2 times daily, First dose on Wed07/18/22 at 1000 Given 07/19/2022 9:42 AM CDT 15 mL Given 07/18/2022 8:37 PM CDT 15 mL Given 07/18/2022 10:20 AM CDT 15 mL heparin (porcine) injection 5,000 Units 5,000 Units, subcutaneous, Every 8 hours scheduled, First dose on Wed07/17/22 at 2200 Given 07/19/2022 5:47 AM CDT 5,000 Units Right Upper Arm (Back) Given 07/18/2022 9:40 PM CDT 5,000 Units L eft Upper Arm (Back) Given 07/18/2022 1:39 PM CDT 5,000 Units R ight Upper Arm (Back) HYDROmorphone (PF) injection 0.2 mg (DILAUDID) 0.2 mg, intravenous, Every 5 min PRN, moderate pain or score 4-6 of 10, severe pain or score 7-10 of 10, Starting on Wed07/17/22 at 1510, PACU (only), Up to maximum total dose of 2 mg Given 07/17/2022 5:05 PM CDT 0.2 mg Given 07/17/2022 4:56 PM CDT 0.2 mg Given 07/17/2022 4:32 PM CDT 0.2 mg HYDROmorphone (PF) injection 0.4 mg (DILAUDID) 0.4 mg, intravenous, Every 4 hours PRN, severe pain or score 7-10 of 10, If pain persists despite enteral options., Starting on Wed07/17/22 at 1821 Given 07/18/2022 12:50 AM CDT 0.4 mg Given 07/17/2022 7:37 PM CDT 0.4 mg ketamine injection 10 mg (KETALAR) 10 mg, intravenous, Once as needed, Refractory moderate pain or score 4-6 of 10, Refractory severe pain score 7-10 of 10 after fentanyl or hydromorphone administration, Pain sedation mismatch AND RASS less than -1, Starting on Wed07/17/22 at 1510, For 1 dose, PACU (only) Given 07/17/2022 5:20 PM CDT 10 mg lactated ringers 20 mL/hr, intravenous, Continuous, Starting on Wed07/17/22 at 1830 New Bag 07/17/2022 6:56 PM CDT 20 mL/hr 20 mL/hr naloxegoL tablet 25 mg (MOVANTIK) 25 mg, oral, Every morning, First dose on 07/18/22 at 0900 Given 07/18/2022 8:44 AM CDT 25 mg ondansetron (PF) injection 4 mg (ZOFRAN) 4 mg, intravenous, Every 6 hours PRN, nausea, vomiting, Starting on Wed07/17/22 at 1821, For 48 hours, Reassess for nausea or vomiting after at least 10 minutes. If nausea or vomiting persists administer next ordered antiemetic medications (order for antiemetic medication administration ondansetron then haloperidol then prochlorperazine). Given 07/19/2022 9:28 AM CDT 4 mg Given 07/18/2022 9:16 AM CDT 4 mg Given 07/17/2022 6:54 PM CDT 4 mg oxyCODONE solution 10 mg (ROXICODONE) 10 mg, oral, Every 6 hours PRN, severe pain or score 7-10 of 10, Starting on Wed07/17/22 at 1821 Given 07/18/2022 5:14 AM CDT 10 mg Given 07/17/2022 10:34 PM CDT 10 mg oxyCODONE solution 10 mg (ROXICODONE) 10 mg, oral, Every 4 hours PRN, moderate pain or score 4-6 of 10, Starting on 07/18/22 at 0745 Given 07/19/2022 9:27 AM CDT 10 mg oxyCODONE solution 10 mg (ROXICODONE) 10 mg, oral, Every 4 hours PRN, severe pain or score 7-10 of 10, Starting on 07/19/22 at 1330 oxyCODONE solution 15 mg (ROXICODONE) 15 mg, oral, Every 4 hours PRN, severe pain or score 7-10 of 10, Starting on 07/18/22 at 0745 Given 07/19/2022 5:46 AM CDT 15 mg Given 07/19/2022 1:30 AM CDT 15 mg Given 07/18/2022 9:40 PM CDT 15 mg oxyCODONE solution 5 mg (ROXICODONE) 5 mg, oral, Every 4 hours PRN, moderate pain or score 4-6 of 10, Starting on 07/19/22 at 1330 spironolactone tablet 100 mg (ALDACTONE) 100 mg, oral, Daily, First dose on 07/18/22 at 0900 Given 07/18/2022 8:44 AM CDT 100 mg documented in this encounter Active and Recently Administered Medications Times are shown in CDT. Scheduled Medication Order 07/17/2022 07/18/2022 07/19/2022 acetaminophen 160 mg/5 mL liquid 1,000 mg (TYLENOL) 1,000 mg, oral, Every 6 hours, First dose on Wed07/17/22 at 2000 2008 (Given - Provider: Lisa Carreno RBarbra) 0051 (Given - Provider: Bev Sebastian R.N.)0109 (Canceled Entry - Provider: Bev Sebastian R.N.)0844 (Given - Provider: Ida Pichardo RJosh.)1339 (Given - Provider: Ida Pichardo RJosh.)2034 (Given - Provider: Lisa Carreno R.N.) 0132 (Given - Provider: Lisa Carreno RYulyN.)0928 (Given - Provider: Ida Pichardo R.N.) acetaminophen tablet 1,000 mg (TYLENOL) (COMPLETED) 1,000 mg, oral, Once, On Wed07/17/22 at 0700, For 1 dose, Pre-Op 07 (Given - Provider: Disha L Narum, R.N.) ampicillin-sulbactam 3 g in NaCl 0.9% IVPB (UNASYN) (COMPLETED) 3 g, intravenous, at 400 mL/hr, Administer over 15 Minutes, Once, On Wed07/17/22 at 0900, For 1 dose, Intra-Op, Mini-Bag Plus bag, Drug Monitoring Program: Pharmacist to adjust medication dosing based on indication and drug clearance factors., Indications: Prophylaxis, surgical 0835 (New Bag - Provider: Makayla Wu APRN, ILAN)1140 (Bolus - Provider: Makayla Wu APRN, MANUFACTURING ENGINEER AUTOMOTIVE)1430 (Bolus - Provider: Flaquita Torres APRN, MANUFACTURING ENGINEER AUTOMOTIVE) ampicillin-sulbactam 3 g in NaCl 0.9% IVPB (UNASYN) 3 g, intravenous, at 400 mL/hr, Administer over 15 Minutes, Every 6 hours, First dose on Wed07/17/22 at 1830, Mini-Bag Plus bag, Drug Monitoring Program: Pharmacist to adjust medication dosing based on indication and drug clearance factors., Indications: Prophylaxis, surgical 1930 (New Bag - Provider: Lisa Carreno R.N.) 0101 (New Bag - Provider: Bev Sebastian RYulyN.)0532 (New Bag - Provider: Bev Sebastian R.N.)1130 (New Bag - Provider: Ida Pichardo, R.N.)1732 (New Bag - Provider: Ida Pichardo R.N.) 0130 (New Bag - Provider: Lisa Carreno R.N.)0547 (New Bag - Provider: Lisa Carreno R.N.)1155 (Not Given - Provider: Ida Pichardo R.N. - Reason: Patient/family refused) celecoxib capsule 200 mg (CeleBREX) 200 mg, oral, 2 times daily, First dose on Wed07/17/22 at 2100 2008 (Given - Provider: Lisa Carreno R.N.) 0844 (Given - Provider: Ida Pichardo R.N.)203 (Given - Provider: Lisa Carreno R.N.) 1154 (Not Given - Provider: Ida Pichardo R.N. - Reason: Patient/family refused) chlorhexidine 0.12 % mouthwash 15 mL (PERIDEX) 15 mL, swish & spit, 2 times daily, First dose on Wed07/18/22 at 1000 1020 (Given - Provider: Ida Pichardo R.N.)2036 (Given - Provider: Lisa Carreno R.N.) 0942 (Given - Provider: Ida Pichardo R.N.) heparin (porcine) injection 5,000 Units 5,000 Units, subcutaneous, Every 8 hours scheduled, First dose on Wed07/17/22 at 2200 2229 (Given - Provider: Lisa Carreno R.N.) 0514 (Given - Provider: Bev Sebastian R.N.)1339 (Given - Provider: Ida Pichardo R.N.)2140 (Given - Provider: Lisa Carreno R.N.) 0547 (Given - Provider: Lisa Carreno R.N.) naloxegoL tablet 25 mg (MOVANTIK) 25 mg, oral, Every morning, First dose on 07/18/22 at 0900 0844 (Given - Provider: Ida Pichardo R.N.) 1154 (Not Given - Provider: Ida Pichardo R.N. - Reason: Patient/family refused) sennosides-docusate sodium 8.6-50 mg per tablet 2 tablet (SENOKOT-S) 2 tablet, oral, Daily at bedtime, First dose on Wed07/17/22 at 2100, While on opioids. Hold for diarrhea. 2013 (Not Given - Provider: Lisa Carreno R.N. - Reason: Patient/family refused) 2036 (Not Given - Provider: Saad FlemingN. - Reason: Patient/family refused) spironolactone tablet 100 mg (ALDACTONE) 100 mg, oral, Daily, First dose on Wed07/18/22 at 0900 0844 (Given - Provider: aSad MackayNYuly) 1154 (Not Given - Provider: Ida Pichardo R.N. - Reason: Patient/family refused) Continuous Medication Order 07/17/2022 07/18/2022 07/19/2022 lactated ringers 20 mL/hr, intravenous, Continuous, Starting on Wed07/17/22 at 1830 1856 (New Bag - Provider: Lisa Carreno RBarbra) lactated ringers 20 mL/hr, intravenous, Continuous, Starting on Wed07/17/22 at 1515, PACU & Post-Op 1515 (Due) PRN Medication Order 07/17/2022 07/18/2022 07/19/2022 acetaminophen injection 1,000 mg (COMPLETED)(Linked Group 1) 1,000 mg, intravenous, at 400 mL/hr, Administer over 15 Minutes, Once as needed, other, If patient has not received in previous 6 hours, Starting on Wed07/17/22 at 1510, For 1 dose, PACU (only), Oral unless RASS less than -1 or nausea/vomiting. Do not use if given in last 6 hours, Restriction Criteria (Pharmacy will review and approve if criteria met): Unable to take or tolerate medications administered via the enteral route or orally (not just NPO) 1514 (New Bag - Provider: Sofie Elder R.N., CCRN) albuterol 90 mcg/actuation inhaler 2 puff 2 puff, inhalation, Every 6 hours PRN, shortness of breath, wheezing, Starting on Wed07/17/22 at 1821 BUPivacaine-EPINEPHrine (PF) 0.25 %-1:200,000 injection (MARCAINE w/EPI) (CANCELED) As needed, Starting on Wed07/17/22 at 1106, Intra-Op 1106 (Given - Provider: Juwan Us M.D., D.D.S. - Comment: Used throughout procedure) dexAMETHasone injection 10 mg (DECADRON) (COMPLETED) 10 mg, intravenous, Once in surgery, OR use only, Starting on Wed07/17/22 at 0851, For 1 dose, Intra-Op 0824 (Given - Provider: Makayla Wu, DEPUTY CHIEF COUNSEL, MANUFACTURING ENGINEER AUTOMOTIVE) furosemide tablet 20 mg (LASIX) 20 mg, oral, Daily PRN, swelling, Starting on Wed07/17/22 at 1821 haloperidol lactate injection 1 mg (HALDOL) 1 mg, intravenous, Every 6 hours PRN, nausea, vomiting, Starting on Wed07/17/22 at 1821, For 48 hours, Total of 3 doses in 24 hour period. RASS must be -2 or higher to administer. Reassess for nausea or vomiting after at least 10 minutes. If nausea or vomiting persists administer next ordered antiemetic medications (order for antiemetic medication administration ondansetron then haloperidol then prochlorperazine) HYDROmorphone (PF) injection 0.2 mg (DILAUDID) (CANCELED) 0.2 mg, intravenous, Every 5 min PRN, moderate pain or score 4-6 of 10, severe pain or score 7-10 of 10, Starting on Wed07/17/22 at 1510, PACU (only), Up to maximum total dose of 2 mg 1518 (Given - Provider: Sofie Elder R.N., CCRN)1543 (Given - Provider: Sofie Elder R.N., CCRN)1600 (Given - Provider: Sofie Elder R.N., CCRN)1607 (Given - Provider: Sofie Elder R.N., CCRN)1632 (Given - Provider: Sofie Elder R.N., CCRN)1656 (Given - Provider: Sofie Elder R.N., CCRN)1705 (Given - Provider: Sofie Elder R.N., CCRN) HYDROmorphone (PF) injection 0.4 mg (DILAUDID) (CANCELED) 0.4 mg, intravenous, Every 4 hours PRN, severe pain or score 7-10 of 10, If pain persists despite enteral options., Starting on Wed07/17/22 at 1821 1937 (Given - Provider: Lisa Carreno RYulyNYuly) 0050 (Given - Provider: Bev Sebastian R.N.) ketamine injection 10 mg (KETALAR) (COMPLETED) 10 mg, intravenous, Once as needed, Refractory moderate pain or score 4-6 of 10, Refractory severe pain score 7-10 of 10 after fentanyl or hydromorphone administration, Pain sedation mismatch AND RASS less than -1, Starting on Wed07/17/22 at 1510, For 1 dose, PACU (only) 1720 (Given - Provider: Sofie Elder R.N., CCRN) ondansetron (PF) injection 4 mg (ZOFRAN) 4 mg, intravenous, Every 6 hours PRN, nausea, vomiting, Starting on Wed07/17/22 at 1821, For 48 hours, Reassess for nausea or vomiting after at least 10 minutes. If nausea or vomiting persists administer next ordered antiemetic medications (order for antiemetic medication administration ondansetron then haloperidol then prochlorperazine). 1854 (Given - Provider: Lisa Carreno R.N.) 0916 (Given - Provider: Ida Pichardo R.N.) 0928 (Given - Provider: Ida Pichardo R.N.) oxyCODONE solution 10 mg (ROXICODONE) (CANCELED) 10 mg, oral, Every 6 hours PRN, severe pain or score 7-10 of 10, Starting on Wed07/17/22 at 1821 2234 (Given - Provider: Lisa Carreno R.N.) 0514 (Given - Provider: Bev Sebastian R.N.) oxyCODONE solution 10 mg (ROXICODONE) (CANCELED) 10 mg, oral, Every 4 hours PRN, moderate pain or score 4-6 of 10, Starting on Wed07/18/22 at 0745 0912 (See Alternative - Provider: Ida Pichardo RJosh.)1339 (See Alternative - Provider: Ida Pichardo R.N.)1732 (See Alternative - Provider: Ida Pichardo R.N.)2140 (See Alternative - Provider: Lisa Carreno RJosh.) 0130 (See Alternative - Provider: Lisa Carreno R.N.)0546 (See Alternative - Provider: Lisa Carreno R.N.)0927 (Given - Provider: Ida Pichardo R.N.)0942 (See Alternative - Provider: Saad MackayN.) oxyCODONE solution 10 mg (ROXICODONE)(Linked Group 2) 10 mg, oral, Every 4 hours PRN, severe pain or score 7-10 of 10, Starting on Wed07/19/22 at 1330 oxyCODONE solution 15 mg (ROXICODONE) (CANCELED) 15 mg, oral, Every 4 hours PRN, severe pain or score 7-10 of 10, Starting on 07/18/22 at 0745 0912 (Given - Provider: Ida Pichardo RYulyNYuly)1339 (Given - Provider: Ida Pichardo RYulyN.)1732 (Given - Provider: Ida Pichardo RYulyN.)2140 (Given - Provider: Lisa Carreno RYulyN.) 0130 (Given - Provider: Lisa Carreno RYulyN.)0546 (Given - Provider: Lisa Carreno RYulyNYuly)0927 (See Alternative - Provider: Ida Pichardo R.N.)0942 (Not Given - Provider: Ida Pichardo R.N. - Reason: Other - Comment: gave 10 mg instead of 15 mg) oxyCODONE solution 5 mg (ROXICODONE)(Linked Group 2) 5 mg, oral, Every 4 hours PRN, moderate pain or score 4-6 of 10, Starting on 07/19/22 at 1330 polyethylene glycol powder packet 1 packet (MIRALAX) 1 packet, oral, Daily PRN, constipation, Starting on Wed07/17/22 at 1821, Ordered sequence of administration: polyethylene glycol, then milk of magnesia then bisacodyl until BM achieved. Avoid mixing with starch-based thickened liquids., Indications: constipation prochlorperazine injection 5 mg (COMPAZINE) 5 mg, intravenous, Every 6 hours PRN, nausea, vomiting, Starting on Wed07/17/22 at 1821, For 48 hours, RASS must be -2 or higher to administer. Reassess for nausea/vomiting after at least 10 minutes. If nausea or vomiting persists administer next ordered antiemetic medications (order for antiemetic medication administration ondansetron then haloperidol then prochlorperazine) Linked Groups Order Group 1: acetaminophen tablet 1,000 mg (TYLENOL) (COMPLETED) 1,000 mg, oral, Once as needed, other, If patient has not received in the previous 6 hours, Starting on Wed07/17/22 at 1510, For 1 dose, PACU (only), Oral unless RASS less than -1 or nausea/vomiting. Do not use if given in last 6 hours Or acetaminophen injection 1,000 mg (COMPLETED)Jump to med 1,000 mg, intravenous, at 400 mL/hr, Administer over 15 Minutes, Once as needed, other, If patient has not received in previous 6 hours, Starting on 07/17/22 at 1510, For 1 dose, PACU (only), Oral unless RASS less than -1 or nausea/vomiting. Do not use if given in last 6 hours, Restriction Criteria (Pharmacy will review and approve if criteria met): Unable to take or tolerate medications administered via the enteral route or orally (not just NPO) Group 2: oxyCODONE solution 5 mg (ROXICODONE)Jump to med 5 mg, oral, Every 4 hours PRN, moderate pain or score 4-6 of 10, Starting on 07/19/22 at 1330 Or oxyCODONE solution 10 mg (ROXICODONE)Jump to med 10 mg, oral, Every 4 hours PRN, severe pain or score 7-10 of 10, Starting on 07/19/22 at 1330 documented in this encounter Additional Health Concerns Assessment Noted Time PHQ-9 Depression Total Score: 12 016 2:38 PM CDT documented as of this encounter Care Teams Cigar Sorter Relationship Specialty Start Date End Date None Reported, Pcp PCP - General Family Medicine 07/17/22 documented as of this encounter
--- OUTSIDE RECORDS SUMMARY | 2023-06-15 10:14 | XMS_ITS | Encounter Summary ---
Author Name Unknown Organization [facility] Address [address] [place] [address] Care Team Providers Care Cnc Machine Programmer Name Role Phone None Reported, Pcp Primary Care Provider Unavail able Encounter Details Date Type Department Care Team (Late st Contact Info) Description 02/21/2018 [facility] [address] [place] [address] Zoltan Young M.D. [address] [place] [id number] Pain Back (Primary Dx) Social History Tobacco Use Types Packs/Day Years Used Date Smoking Tobacco: Never Smokeless Tobacco: Never Alcohol Use Standard Drinks/Week Comments No 0 (1 standard drink = 0.6 oz pur e alcohol) Sex and Gender Information Value Date Recorded Sex Assigned at Female 04/19/2017 7:28 PM MAINFRAME CONSULTANT Gender Identity Female 04/19/2017 7:28 PM MAINFRAME CONSULTANT Sexual Orientation Straight 04/19/2017 7: 28 PM MAINFRAME CONSULTANT documented as of this encounter Plan of Treatment Not on file documented as of this encounter Visit Diagnoses Diagnosis Pain Back- Primary documented in this encounter Additional Health Concerns Assessment Noted Time PHQ-9 Depression Total Score: 12 016 2:38 PM CDT documented as of this encounter Care Teams Cnc Machine Programmer Relationship Specialty Start Date End Date None Reported, Pcp PCP - General Family Medicine 07/17/22 documented as of this encounter
--- OUTSIDE RECORDS SUMMARY | 2023-06-15 10:14 | XMS_ITS | Encounter Summary ---
Author Name Unknown Organization [facility] Address [address] [place] [address] Care Team Providers Care Cardiology Clinical Consultant Name Role Phone None Reported, Pcp Primary Care Provider Unavail able Encounter Details Date Type Department Care Team (Late st Contact Info) Description 12/06/2017 [facility] [address] [place] [address] Iam Yeung M.D., M.P.H. 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 Gender Identity Female 04/19/2017 7:28 PM GENERAL SURGERY PHYSICIAN ASSISTANT Sexual Orientation Straight 04/19/2017 7: 28 PM GENERAL SURGERY PHYSICIAN ASSISTANT documented as of this encounter Plan of Treatment Not on file documented as of this encounter Visit Diagnoses Not on filedocumented in this encounter Additional Health Concerns Assessment Noted Time PHQ-9 Depression Total Score: 12 016 2:38 PM CDT documented as of this encounter Care Teams Cardiology Clinical Consultant Relationship Specialty Start Date End Date None Reported, Pcp PCP - General Family Medicine 07/17/22 documented as of this encounter
--- OUTSIDE RECORDS SUMMARY | 2023-06-15 10:14 | XMS_ITS | Encounter Summary ---
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 [address] [place] [address] Social History Tobacco Use Types Packs/Day Years [...] often do you attend chur ch or orthodox services? Patient declined 04/14/2021 Do you belong to any clubs o r organizations such as worship groups, unions, fraternal or athletic groups, or [...] medical care, and heating? 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 - 07/10/2022 12:51 PM CST Called to discuss DVT prophylaxis in the perioperative period, given her Factor V Leiden status. Itis reasonable to administer heparin SQ in the hospital and begin 30 mg subcutaneous Lovenox for a week postop after discharge, using it every 12 hours as long as she remains hemostatic. ING MACHINE OPERATOR documented in this encounter Plan of Treatment Not on file documented as of this encounter Visit Diagnoses Not on filedocumented in this encounter Additional Health Concerns Assessment Noted Time PHQ-9 Depression Total Score: 12 016 2:38 PM CDT documented as of this encounter
--- OUTSIDE RECORDS SUMMARY | 2023-06-15 10:14 | XMS_ITS | Encounter Summary ---
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 [address] [place] [address] Carlos Burton M.D. [address] [place] [address] Anesthesia Record Procedure Summary Procedure Name Responsible Anesthesiologist Anesthesia Start Time Anesthesia Stop Time OSTEOTOMY MAXILLA, 2 piece lefort. (Bilateral: Mouth) Nasim Spencer M.D. 07/17/22 0748 07/17/22 1513 Events Date Time Event Comment 07/17/2022 0748 An Start Machine/Equipme nt Checked Infection Precautions Followed Procedure/Site Verified NPO Status Verified Supine Standard ASA Monitors Applied 0800 Quick Note Extensive discu ssion with patient prior to going to sleep about piercing removal for cautery usage and safety. She is aware that every piercing on her face and ears will be removed during the procedure and she is in agreeance with this plan prior to going to sleep. Plan to use plastic angiocaths as able to keep holes open. 0807 An Induction 0809 An Intubation 0823 Turnover to Proceduralist 0841 Proc Start 0903 Lab Drawn ABG w/ electrol ytes; type and screen 1439 Proc Fin 1449 Turnover to ANE Staff 1457 Airway Removal Criteria Met 1457 Extubation/Airway Removed 1458 an stop data 1513 An End I completed my handoff to the receiving staff during which we 1. Identified the patient 2. Identified the responsible provider 3. Reviewed the pertinent medical history 4. Discussed the surgical course 5. Reviewed intra-op anesthesia management and issues during anesthesia 6. Set expectations for post-procedure period 7. Allowed opportunity for questions and acknowledgement of understanding. Meds Name Total fentanyl injection 50 mcg/mL 200 mcg lidocaine 2% (mg) injection 100 mg propofol 10 mg/mL 200 mg propofol 10 mg/mL infusion 4,024.85 mg rocuronium 10 mg/mL injection 80 mg phenylephrine 100 mcg/mL injection 300 m cg ondansetron 4 mg/2 mL injection 4 mg sugammadex 100 mg/mL injection 210 mg scopolamine 1.5mg (1 mg/72) hr patch 1 p atch remifentaniL 20 mcg/mL in NaCl 0.9% 250 mL infusion (ULTIVA) 6.45 mg oxymetazoline 0.05% nasal 1 spray ampicillin-sulbactam 3 g in NaCl 0.9% IV PB (UNASYN) 9 g clevidipine 0.5 mg/mL infusion 0.87 mg dexAMETHasone injection 10 mg (DECADRON) 10 mg ketamine 10 mg/mL injection 20 mg HYDROmorphone PF 2 mg/mL injection 0.8 m g haloperidol 5 mg/mL injection 1 mg dexmedeTOMIDine 80 mcg/20 mL (4 mcg/mL) in NaCl 0.9% vial 12 mcg caffeine-sodium benzoate 250 mg (125 mg caffeine)/mL injection 250 mg Lactated Ringers Free Drip 1,000 mL lactated ringers free drip 550 mL * Agents No agents on file. * Blood No blood administrations on file. Lines, Drains, and Airways Type Details Placement Removal Wound 07/17/22; 0908; N; Incision; Mouth 07/17/22 0908 by Malinda Chou RYulyNYuly Peripheral IV Placement Date: 07/17/22; Placement Time: 0700; Catheter Size: 20 G; Orientation: Left; Location: Hand; Site Prep: Chlorhexidine (Preferred); Technique: Anatomical landmarks; Inserted by: rcu; Insertion Attempts: 1; Removal Date: 07/19/22; Removal Time: 1229; Removal Reason: Patient discharged 07/17/22 0700 by Diane Cordon RYulyNYuly 07/19/22 1229 by Ida Pichardo RYulyNYuly ETT Placement Date: 07/17/22; Placement Time: 0809 (created via procedure documentation); Mask Ventilation: Easy mask; Type: Homar; Cuffed: Yes; Location: Right nare; Grade View: Grade 1; Insertion Attempts: 1; Placement Verification: Bilateral breath sounds, Positive ETCO2, Symmetrical chest wall movement; Removal Date: 07/17/22; Removal Time: 1457 07/17/22 0809 by Makayla Wu APRN, CRNA 07/17/22 1457 by Flaquita Torres APRN, PROGRAM ADVOCATE Indwelling Urinary Catheter Placement Date: 07/17/22; Placement Time: 0815; Inserted by: Malinda Chou RN; Type: Non-latex, Temperature probe; Size: 16 Fr.; Balloon Size: 10 mL; Urine Returned: Yes; Removal Date: 07/17/22; Removal Time: 1524; Removal Reason: Other (Comment) 07/17/22 0815 by Malinda Chou R.N. 07/17/22 1524 by Sofie Elder R.N. Peripheral IV Placement Date: 07/17/22; Placement Time: 0815; Catheter Size: 18 G; Orientation: Right; Location: Hand; Removal Date: 07/19/22; Removal Time: 1229; Removal Reason: Patient discharged 07/17/22 0815 by Makayla Wu APRN, PROGRAM ADVOCATE 07/19/22 1229 by Ida Pichardo RYulyNYuly NG/OG Tube 07/17/22; 0820; Nasogastric; 16 Fr; Nare (right); 07/17/22; 1455 07/17/22 0820 by Makayla Wu APRN, PROGRAM ADVOCATE 07/17/22 1455 by Flaquita Torres APRN, PROGRAM ADVOCATE Arterial Line Placement Date: 07/17/22; Placemnt Time: 08 (created via procedure documentation); Size: 20 G; Orientation: Left; Location: Radial; Site Prep: Chlorhexidine (Preferred); Technique: Anatomical landmarks; Insertion Attempts: 1; Securement: Securement dressing, Securement device; Removal Date: 07/17/22; Removal Time: 1523; Removal Reason: Per protocol 07/17/22 08 by Makayla Wu APRN, PROGRAM ADVOCATE 07/17/22 1523 by Sofie Elder RBarbra documented in this encounter Social History Tobacco Use Types Packs/Day Years [...] week 04/14/2021 How often do you attend [facility] or muslim services? Patient declined 04/14/2021 Do you belong [...] medical care, and heating? Somewhat hard 04/14/2021 [facility] - Occupational Stress [...] Sex Assigned at Female 04/19/2017 7:28 PM CAP MACHINE OPERATOR Gender Identity Female 04/19/2017 7:28 PM CAP MACHINE OPERATOR Sexual Orientation Straight 04/19/2017 7: 28 PM CAP MACHINE OPERATOR documented as of this encounter OR Notes * Anesthesia Postprocedure Evaluation - Lori Chavez M.D. - 07/17/2022 4:14 PM CDT Patient: Betsey Godinez Procedure Summary Date: 07/17/22 Room / Location: [address] [facility] in [place], [place] Anesthesia Start: 0748 Anesthesia Stop: 1513 Procedures: OSTEOTOMY MAXILLA, 2 piece lefort. (Bilateral: Mouth) OTHER genioglossus advancement. (Anterior: Mouth) OSTEOTOMY BILATERAL SAGITTAL-SPLIT RAMUS MANDIBLE. 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 Responsible Provider: Nasim Spencer M.D. Anesthesia Type: general ASA Status: 2 Anesthesia Type: general Last vitals Vitals Value Taken Time BP 154/79 07/17/22 1600 Temp 36.9 ??C 07/17/22 1515 Pulse 86 07/17/22 1613 Resp 14 07/17/22 1613 SpO2 94 % 07/17/22 1613 Vitals shown include unvalidated device data. Please reference Vitals flowsheet for most recent vital signs. Anesthesia Post Evaluation Patient Disposition: general care unit Cardiovascular status: hemodynamics (HR & BP) acceptable Respiratory status: patent airway with spontaneous effort Temperature: normothermic Oxygen requirements: room air Level of consciousness: awake Pain score: pain adequately controlled and/or at baseline Post Op nausea/vomiting: none Hydration status: euvolemic Comments: S/P GA w uncomplicated PACU stay. * Anesthesia Procedure Notes - Makayla Wu APRN, CRNA - 07/17/2022 9:30 AM CDTAssociated Order(s): Airway Airway Date/Time: 07/17/2022 8:09 AM Performed by: Makayla Wu APRN, CRNA Authorized by: Jaci Silva M.D. Patient location during procedure: OR / Procedure Area PROCEDURE DETAILS: Mask difficulty assessment: easy mask Final airway type: video laryngoscope Laryngeal Manipulation: no Final best view of glottic structures - Cormack/Lehane Score: grade 1 ETT location: nasal VL device: glide scope [place] scope blade size: 3 Adult ETT distance at teeth/gum: Other, document in comment Nasal tube type: ohmar Cuffed: yes Number of attempt to successful placement: 1 Airway confirmation: bilateral breath sounds, positive ETCO2 and bilateral chest rise Other previous techniques attempted: none PRE PROCEDURE DETAILS: Pre evaluation for airway management: procedure Urgency: elective Preop assessment of probable difficulty: no difficulty anticipated Preoxygenation: bag valve mask SEDATION / ANESTHESIA Anesthesia method: anesthesia POST PROCEDURE DETAILS: Procedure outcome: successful Airway event: no complications * Anesthesia Procedure Notes - Makayla Wu APRN, CRNA - 07/17/2022 9:24 AM CDTAssociated Order(s): Invasive Catheter Invasive Catheter Date/Time: 07/17/2022 8:21 AM Performed by: Makayla Wu APRN, CRNA Authorized by: Jaci Silva M.D. Location: OR PROCEDURE DETAILS: Line type: arterial Laterality: left Location: radial Location details: new site Age group: adult Catheter diameter: 20 Ga Technique: palpation Monitored: yes Number of attempts: 1 UNIVERSAL PROTOCOL All relevant documentation and testing were reviewed and available. All required blood products, implants, devices and or special equipment were made available as applicable. Pre-procedure verification was conducted and the correct site was marked if required. A fire risk assessment was done as applicable. The procedural time-out to verify correct patient, correct side/site, and procedure was conducted prior to performing the procedure and confirmed in a procedural pause. PRE-PROCEDURE DETAILS: Appropriate hand hygiene, gown, cap, mask, protective eyewear, sterile gloves, skin preparation, sterile drape, and strict aseptic technique were utilized as applicable for the procedure.: yes Skin preparation: chlorhexidine SEDATION / ANESTHESIA Anesthesia method: anesthesia POST-PROCEDURE DETAILS: Procedure completed successfully: yes Line secured: secured with sutureless device Chlorhexidine disc around insertion site and under catheter with slight turn: yes Complications - arterial: none * Anesthesia Preprocedure Evaluation - Jaci Silva M.D. - 07/17/2022 7:13 AM CDT Preprocedure Anesthesia & H&P Assessment Procedure Summary Anesthesia Start Date/Time: 07/17/22 0748 Procedures: OSTEOTOMY MAXILLA, 2 piece lefort. (Bilateral: Mouth) OTHER genioglossus advancement. (Anterior: Mouth) OSTEOTOMY BILATERAL SAGITTAL-SPLIT RAMUS MANDIBLE. 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 Location: [place] [address] / [facility] in [place], [place] Providers: Ector Anaya M.D., Davina. Pertinent components of the patient's history including current problem list, medical history, surgical history, family history, social history, medications and allergies were reviewed. Present illness and pre-op diagnosis were confirmed. The planned surgery / procedure was verified with the patient / legal guardian. The patient's general health condition remains unchanged RELEVANT COMORBID CONDITIONS ANESTHESIA (+) Post Operative Nausea/Vomiting CV (+) Hypertension Gestational (HCC) RESP (+) Asthma Mild Persistent (HCC) (+) Asthma Moderate Persistent (HCC) (+) Obstructive Sleep Apnea Adult PSYCH (+) Major Depressive Disorder Single Episode Unspecified HEME (+) Activated Protein C Resistance (HCC) Respiratory (+) Apnea Sleep Obstructive (does not wear CPAP) Digestive (+) Malocclusion Musculoskeletal (+) Hypoplasia Maxillary Hematologic (+) Mutation Factor V Leiden Heterozygous (HCC) Other (+) Edema (lower extremity, takes furosemide, last dose yesterday) (+) Obesity Unspecified (+) Spinal Stenosis Lumbosacral Region OBJECTIVE PHYSICAL EXAMINATION Airway (HEENT) Mallampati: III TM Distance: >3 FB Neck ROM: Full Mouth Opening: >3 cm Cardiovascular Rate: Normal Pulmonary Pulmonary Assessment: Non labored General / Constitutional General State of Health:: calm Neurological Neurologic Assessment:??alert Dental braces Skin Multiple facial piercings, including lip, nose, eyebrow, ear ASSESSMENT / PLAN ANESTHESIA PLAN ASA: 2 Anesthesia Plan: general Patient seen and allergies reviewed, anesthesia plan and risks discussed directly with patient /legal guardian or through an label remover. Risks/Benefits/Alternatives of Blood transfusion discussed with patient / legal guardian, includingan opportunity to ask questions and/or decline some or all transfusion therapies. The patient / legal guardian consented to the use of all blood products, as deemed medically necessary Discussed risk of potential decreased hormonal contraceptive efficacy for up to one month after anesthesia due to medication interactions. Approval to Proceed: approved for anesthesia Accompanied by multiple family members, notes history of PONV and motion sickness, states that she has done well with recent anesthetics (Care Everywhere reviewed, appears that TIVA used for recent back surgery). Discussed history of chronic back pain (currently 10/10, typically takes oxycodone 5 mgfour times per day), does have stimulator placed at thoracic level, which is currently off. Planning GETA, nasal intubation, PIV x 2, arterial line, propofol and remifentanil, T/S and ABG, electrolytes following arterial line placement, scopolamine, dexamethasone, ondansetron, haloperidol for PONV prophylaxis. Hydromorphone, ketamine, consideration for dexmedetomidine for analgesia, discus sed with surgical team that consultation with pain service may be helpful with stimulator and chronic pain history. Patient expressed frustration with being told that her facial piercing jewelry could remain in place during procedure and then being told that she would have to remove them this morning, surgical team at bedside to discuss risk of scruggs if hardware left in. Will plan to remove jewelry and place angiocatheters in piercings to minimize the chance that these holes would close. documented in this encounter Plan of Treatment Not on file documented as of this encounter Procedures Procedure Name Priority Date/Time Associated Diagnosis Comments LDA ANE ARTERIAL LINE INSERTION Routine 07/17/2022 8:21 AM CDT IL ARTL CATH/CNULA MONITOR PERC Routine 07/17/2022 8:21 AM CDT LDA ANE ENDOTRACHEAL AIRWAY Routine 07/17/2022 8:09 AM CDT documented in this encounter Results * IL ARTL CATH/CNULA MONITOR PERC, LDA ANE ARTERIAL LINE INSERTION (07/17/2022 8:21 AM CDT) Narrative Makayla Wu APRN, CRNA - 07/17/2022 8:21 AM CDT Makayla Wu APRN, CRNA ? 07/17/2022 ??9:25 AM Invasive Catheter Date/Time: 07/17/2022 8:21 AM Performed by: Makayla Wu APRN, CRNA Authorized by: Jaci Silva M.D. Location: OR PROCEDURE DETAILS: Line type: arterial ?? Laterality: left Location: radial Location details: new site ? Age group: adult Catheter diameter: 20 Ga Technique: palpation ?? Monitored: yes ?? Number of attempts: 1 UNIVERSAL PROTOCOL All relevant documentation and testing were reviewed and available. All required blood products, implants, devices and or special equipment were made available as applicable. Pre-procedure verification was conducted and the correct site was marked if required. A fire risk assessment was done as applicable. The procedural time-out to verify correct patient, correct side/site, and procedure was conducted prior to performing the procedure and confirmed in a procedural pause. PRE-PROCEDURE DETAILS: Appropriate hand hygiene, gown, cap, mask, protective eyewear, sterile gloves, skin preparation, sterile drape, and strict aseptic technique were utilized as applicable for the procedure.: yes ?? Skin preparation: chlorhexidine ?? SEDATION / ANESTHESIA Anesthesia method: anesthesia POST-PROCEDURE DETAILS: Procedure completed successfully: yes ?? Line secured: secured with sutureless device Chlorhexidine disc around insertion site and under catheter with slight turn: yes ?? Complications - arterial: none Jaci Mercado M.D. PROCEDURE/ MINOR SURGICAL ORDERABLES * LDA ANE ENDOTRACHEAL AIRWAY (07/17/2022 8:09 AM CDT) Narrative Makayla Wu APRN, CRNA - 07/17/2022 8:09 AM CDT Makayla Wu APRN, CRNA ? 07/17/2022 ??9:32 AM Airway Date/Time: 07/17/2022 8:09 AM Performed by: Makayla Wu APRN, CRNA Authorized by: Jaci Silva M.D. Patient location during procedure: OR / Procedure Area PROCEDURE DETAILS: Mask difficulty assessment: easy mask Final airway type: video laryngoscope Laryngeal Manipulation: no ?? Final best view of glottic structures - Cormack/Lehane Score: grade 1 ETT location: nasal VL device: glide scope [place] scope blade size: 3 Adult ETT distance at teeth/gum: Other, document in comment Nasal tube type: homar Cuffed: yes Number of attempt to successful placement: 1 Airway confirmation: bilateral breath sounds, positive ETCO2 and bilateral chest rise Other previous techniques attempted: none PRE PROCEDURE DETAILS: Pre evaluation for airway management: procedure Urgency: elective Preop assessment of probable difficulty: no difficulty anticipated Preoxygenation: bag valve mask SEDATION / ANESTHESIA Anesthesia method: anesthesia POST PROCEDURE DETAILS: ? Procedure outcome: successful ?? Airway event: no complications Jaci Mercado M.D. ANESTHESIA ORDERABLES documented in this encounter Visit Diagnoses Not on filedocumented in this encounter Administered Medications Inactive Administered Medications - up to 3 most recent administrations Medication Order MAR Action Action Date Dose Rate Site ampicillin-sulbactam 3 g in NaCl 0.9% IVPB (UNASYN) 3 g, intravenous, at 400 mL/hr, Administer over 15 Minutes, Once, On Wed07/17/22 at 0900, For 1 dose, Intra-Op, Mini-Bag Plus bag, Drug Monitoring Program: Pharmacist to adjust medication dosing based on indication and drug clearance factors., Indications: Prophylaxis, surgical Bolus 07/17/2022 2:30 PM CDT 3 g Bolus 07/17/2022 11:40 AM CDT 3 g New Bag 07/17/2022 8:35 AM CDT 3 g caffeine-sodium benzoate injection intravenous, As needed, Starting on Wed07/17/22 at 1450, Anesthesia Intra-op Given 07/17/2022 2:50 PM CDT 250 mg clevidipine 0.5 mg/mL infusion (CLEVIPREX) intravenous, Continuous Infusion: Per Instructions PRN, Starting on Wed07/17/22 at 0938, Anesthesia Intra-op Rate/Dose Change 07/17/2022 12:00 PM CDT 1 mg/hr 2 mL/hr Rate/Dose Change 07/17/2022 11:56 AM CDT 2 mg/hr 4 mL/h r Restarted 07/17/2022 11:53 AM CDT 1 mg/hr 2 mL/hr dexAMETHasone injection 10 mg (DECADRON) 10 mg, intravenous, Once in surgery, OR use only, Starting on Wed07/17/22 at 0851, For 1 dose, Intra-Op Given 07/17/2022 8:24 AM CDT 10 mg dexmedeTOMIDine 80 mcg/20 mL (4 mcg/mL) injection (PRECEDEX) intravenous, As needed, Starting on Wed07/17/22 at 1415, Anesthesia Intra-op Given 07/17/2022 2:21 PM CDT 4 mcg Given 07/17/2022 2:15 PM CDT 8 mcg fentaNYL injection (SUBLIMAZE) intravenous, As needed, Starting on Wed07/17/22 at 0803, Anesthesia Intra-op Given 07/17/2022 11:20 AM CDT 50 mcg Given 07/17/2022 9:19 AM CDT 50 mcg Given 07/17/2022 8:06 AM CDT 75 mcg haloperidol lactate injection (HALDOL) intravenous, As needed, Starting on Wed07/17/22 at 1416, Anesthesia Intra-op Given 07/17/2022 2:16 PM CDT 1 mg HYDROmorphone (PF) injection (DILAUDID) intravenous, As needed, Starting on Wed07/17/22 at 1300, Anesthesia Intra-op Given 07/17/2022 1:23 PM CDT 0.3 mg Given 07/17/2022 1:00 PM CDT 0.5 mg ketamine injection (KETALAR) intravenous, As needed, Starting on Wed07/17/22 at 1005, Anesthesia Intra-op Given 07/17/2022 12:50 PM CDT 10 mg Given 07/17/2022 10:05 AM CDT 10 mg lactated ringers intravenous, Continuous Infusion: Per Instructions PRN, Starting on Wed07/17/22 at 0805, Anesthesia Intra-op New Bag 07/17/2022 2:30 PM CDT New Bag 07/17/2022 8:05 AM CDT lactated ringers intravenous, Continuous Infusion: Per Instructions PRN, Starting on Wed07/17/22 at 0815, Anesthesia Intra-op New Bag 07/17/2022 8:15 AM CDT lidocaine (PF) (cardiac) injection intravenous, As needed, Starting on Wed07/17/22 at 0805, Anesthesia Intra-op Given 07/17/2022 8:05 AM CDT 100 mg ondansetron (PF) injection (ZOFRAN) intravenous, As needed, Starting on Wed07/17/22 at 1425, Anesthesia Intra-op Given 07/17/2022 2:25 PM CDT 4 mg oxymetazoline 0.05 % nasal spray (AFRIN) each nostril, As needed, Starting on Wed07/17/22 at 0806, Anesthesia Intra-op Given 07/17/2022 8:06 AM CDT 1 spray phenylephrine injection intravenous, As needed, Starting on Wed07/17/22 at 0833, Anesthesia Intra-op Given 07/17/2022 2:28 PM CDT 100 mcg Given 07/17/2022 8:58 AM CDT 50 mcg Given 07/17/2022 8:48 AM CDT 50 mcg propofol 10 mg/mL infusion (DIPRIVAN) intravenous, Continuous Infusion: Per Instructions PRN, Starting on Wed07/17/22 at 0807, Anesthesia Intra-op Rate/Dose Change 07/17/2022 1:53 PM CDT 50 mcg/kg/min 31.02 mL/hr Rate/Dose Change 07/17/2022 12:48 PM CDT 75 mcg/kg/min 46. 53 mL/hr New Bag 07/17/2022 11:43 AM CDT 100 mcg/kg/min 62.04 mL /hr propofoL injection (DIPRIVAN) intravenous, As needed, Starting on Wed07/17/22 at 0807, Anesthesia Intra-op Given 07/17/2022 8:07 AM CDT 200 mg remifentaniL 20 mcg/mL in NaCl 0.9% 250 mL infusion (ULTIVA) intravenous, Continuous Infusion: Per Instructions PRN, Starting on Wed07/17/22 at 0807, Anesthesia Intra-op New Bag 07/17/2022 12:45 PM CDT 0.1 mcg/kg/min 31.02 mL/hr Rate/Dose Change 07/17/2022 12:04 PM CDT 0.1 mcg/kg/min 31 .02 mL/hr Rate/Dose Change 07/17/2022 11:52 AM CDT 0.2 mcg/kg/min 62 .04 mL/hr rocuronium injection (ZEMURON) intravenous, As needed, Starting on Wed07/17/22 at 0807, Anesthesia Intra-op Given 07/17/2022 8:07 AM CDT 80 mg scopolamine base 1 mg over 3 days (TRANSDERM SCOP) transdermal, Administer over 72 Hours, As needed, Starting on Wed07/17/22 at 0832, Anesthesia Intra-op Given 07/17/2022 8:32 AM CDT 1 patch sugammadex injection (BRIDION) intravenous, As needed, Starting on Wed07/17/22 at 1440, Anesthesia Intra-op Given 07/17/2022 2:40 PM CDT 210 mg documented in this encounter Additional Health Concerns Assessment Noted Time PHQ-9 Depression Total Score: 12 016 2:38 PM CDT documented as of this encounter Care Teams Traveling Crane Operator Relationship Specialty Start Date End Date None Reported, Pcp PCP - General Family Medicine 07/17/22 documented as of this encounter
--- OUTSIDE RECORDS SUMMARY | 2023-06-15 10:14 | XMS_ITS | Encounter Summary ---
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 [address] [place] [address] PRATIK MAXILLA, 2 piece aster. Social History Tobacco Use Types Packs/Day Years [...] How often do you attend chur or jain services? Patient declined 04/14/2021 Do you belong to any clubs o r organizations such as restorationist groups, unions, fraternal or athletic groups, or [...] medical care, and heating? Somewhat hard 04/14/2021 [facility] - [...] place to sleep or slept in a prison (including now)? No 04/14/2021 Nutrition Answer Date [...] Sex Assigned at Female 04/19/2017 7:28 PM REAL ESTATE INVESTOR Gender Identity Female 04/19/2017 7:28 PM REAL ESTATE INVESTOR Sexual Orientation Straight 04/19/2017 7: 28 PM REAL ESTATE INVESTOR documented as of this encounter Last Filed Vital Signs Vital Sign Reading Time Taken Comments Blood Pressure 140/89 07/17/2022 6:57 AM CDT Pulse 97 07/17/2022 6:57 AM CDT Temperature 37 ??C (98.6 ??F) 07/17/2022 6:57 AM CDT Respiratory Rate 18 07/17/2022 6:57 AM CDT Oxygen Saturation 96% 07/17/2022 6:57 AM CDT Inhaled Oxygen Concentration - - Weight 103 kg (227 lb 15.3 oz) 07/17/2022 6:57 A M CDT Height 165 cm (5' 4.96) 07/17/2022 6:57 AM CDT Body Mass Index 38.7 07/17/2022 6:21 PM CDT documented in this encounter Discharge Summaries * Jay Greer D.D.S. - 07/19/2022 8:32 AM CDT DISCHARGE SUMMARY BRIEF OVERVIEW Hospital: [facility] Discharge Provider: Ector Anaya M.D. Primary Team: TRACY bicycle fitter - Jaclyn Primary Care Providers: None Reported, [...] Appointments 07/30/2022 1:40 PM Ector Anaya M.D., [place] bicycle fitter 08/31/2022 11:20 AM Ector Anaya M.D., [place]. bicycle fitter For appointment details refer to your Patient Appointment Guide. 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 Anaya's [facility] service. The patient was brought to the [...] through Care Everywhere. * Acetaminophen (By mouth) (Australian) * Amoxicillin/Clavulanate Potassium (By mouth) (Australian) * Celecoxib (By mouth) (Australian) * Chlorhexidine (Into the mouth) (Australian) * Loratadine (By mouth) (Australian) * Oxycodone, Rapid Release (By mouth) (Australian) * Polyethylene Glycol 3350 (By mouth) (Australian) * Sodium Chloride (Into the nose) (Australian) documented in this encounter Medications at Time [...] antibiotics Disposition: Discharge. Please contact S at [phone] with questions or concerns. * Summer Jain PharmBrittaney, R.Ph. - 07/18/2022 12:06 PM CDT Pharmacist [...] about patient's nutritional care please contact pager [phone] on weekdays or [phone] on weekends/holidays. * Jay Greer D.D.[place]uly - [...] Floor Care tomorrow Please contact OMS at [phone] with questions or concerns. * Doreen Choi, [...] pain with oralpain medications. Prescriptions sent to [facility] pharmacy. Patient discharged to home self-care. Take [...] * Op Note - Ector Anaya M.D., [place]. - 07/17/2022 8:41 AM CDT Pre-op Diagnosis Hypoplasia Maxillary,Hyperplasia mandible, Obstructive Sleep Apnea Adult,Malocclusion Post-op Diagnosis Hypoplasia Maxillary,Hyperplasia mandible, Obstructive Sleep Apnea Adult,Malocclusion A web assistant actively participated and was necessary for [...] PACU for further care. Ector Anaya M.D., [place]. * Brief Op Note - Rudy Garcia D.M.D., M.S. - 07/17/2022 8:41 AM CDT Pre-op Diagnosis Hypoplasia Maxillary,Obstructive Sleep Apnea Adult,Malocclusion,Mutation Factor V Leiden Heterozygous (HCC) Post-op Diagnosis Hypoplasia Maxillary,Obstructive Sleep Apnea Adult,Malocclusion,Mutation Factor V Leiden Heterozygous (HCC) Findings As expected. Complications None Rudy Garcia D.M.D., M.S. documented in this encounter Miscellaneous Notes * Hospital Course - Jay Greer D.D.SYuly - 07/18/2022 10:13 AM CDT The patient was routinely admitted in the morning to Dr. Anaya's [facility] service. The patient was brought to the [...] 07/17/2022 9:09 AM CDT Makayla Wu APRN, CRNA LAB BLOOD NON AD D-ON Performing Organization Address City/State/[facility] Co de Phone Number [facility] [address] [place] [address], [facility] STMA [facility] [address] [place] [address] * Glucose, Whole Blood (07/17/2022 9:09 AM CDT) Glucose 115 70 - 140 mg/dL 07/17/2022 9:13 AM CDT STMA Blood (Blood, Arterial Line) 07/17/2022 9:09 AM CDT 07/17/2022 9:09 AM CDT Jaci Mercado M.D. LAB BLOOD ADD-ON Performing Organization Address City/State/[facility] Co de Phone Number [facility] [address] [place] [address], [facility] [address] [place] [address] * Potassium, Blood (07/17/2022 9:09 AM CDT) Potassium, B 3.8 3.6 - 5.2 mmol/L 07/17/2022 9:13 AM CDT STMA Blood (Blood, Arterial Line) 07/17/2022 9:09 AM CDT 07/17/2022 9:09 AM CDT Jaci Mercado M.D. LAB BLOOD NON ADD-ON Performing Organization Address City/[facility] Co de Phone Number [facility] [address] [place], [place] [address] [address] [place] [address] * Sodium, B (07/17/2022 9:09 AM CDT) Sodium, B 141 135 - 145 mmol/L 07/17/2022 9:13 AM CDT [facility] (Blood, [facility]ter[facility] Line) 07/17/2022 9:09 AM CDT 07/17/2022 9:09 AM CDT Jaci Mercado M.D. LAB BLOOD NON ADD-ON [facility] [address] [place] [address], [facility] [address] [place] [address] * Calcium, Ionized (07/17/2022 9:09 AM CDT) Calcium, Ionized, B 4.92 4.65 - 5.30 mg/dL 07/17/2022 9:13 AM CDT STMA Blood (Blood, Arterial Line) 07/17/2022 9:09 AM CDT 07/17/2022 9:09 AM CDT Jaci Mercado M.D. LAB BLOOD NON ADD-ON [facility] [address] [place] [address], [facility] STMA [facility] [address] [place] [address] * (ABNORMAL) Blood Gas with Coox, Arterial (07/17/2022 9:09 AM CDT) [facility] Signature pO2 162(H) 83 - 108 mm Hg [...] Jaci Mercado M.D. LAB BLOOD NON ADD-ON [facility] [address] [place] [address], [facility] STMA [facility] [address] [place] [address] * Antibody Identification, Erythrocytes (07/17/2022 8:57 AM CDT) Pathologist [facility] Antibody Identification No antibody detected 07/17/2022 12:14 PM CDT DTL 07/17/2022 8:57 AM CDT 07/17/2022 9:12 AM CDT Narrative [facility] - 07/17/2022 12:14 PM CDT Specimen Information: Specimen ID: [id number] Specimen Collection Start Date: 07/17/2022 ??8:57 AM Specimen Received Date: 07/17/2022 ??9:12 AM Specimen ID: [id number] Specimen Collection Start Date: 07/17/2022 ??8:57 AM Specimen Received Date: 07/17/2022 ??9:12 AM Makayla Wu APRN, CRNA LAB BLOOD BANK T EST ORDERABLES [facility] [address] [place] [address], [facility] [address] [place] [address] * Type and Screen (with reflex Antibody ID) (07/17/2022 8:57 AM CDT) Pathologist [facility] ABORh B Pos Not applicable 07/17/2022 9:42 AM CDT STRM Antibody Screen Positive Negative 07/17/2022 10:06 AM CDT STRM Type & Screen Expiration 07/20/2022 23:59 07/17/2022 9:42 AM CDT STRM Testing Location [place] DEFAULT 07/17/2022 9:12 AM CDT STRM Blood (Blood, Venous) 07/17/2022 8:57 AM CDT 07/17/2022 9:12 AM CDT Jaci Mercado M.D. 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 [...] Given 07/18/2022 8:34 PM CDT 1,000 mg ampicillin-sulbactam 3 g in [...] 5:32 PM CDT 3 g 400 mL/hr BUPivacaine-EPINEPHrine (PF) 0.25 %-1:200,000 injection (MARCAINE w/EPI) As needed, Starting on Wed07/17/22 at 1106, Intra-Op Given 07/17/2022 11:06 AM CDT 25 mL [facility] celecoxib capsule 200 mg (CeleBREX) 200 mg, [...] 5,000 Units R ight Upper Arm (Back) lactated ringers 20 mL/hr, intravenous, Continuous, Starting on Wed07/17/22 at 1830 New Bag 07/17/2022 6:56 PM CDT 20 mL/hr 20 mL/hr naloxegoL tablet 25 mg (MOVANTIK) 25 mg, oral, Every morning, First dose on Wed07/18/22 at 0900 Given 07/18/2022 8:44 AM CDT [...] Starting on 07/19/22 at 1330 oxyCODONE solution 5 mg (ROXICODONE) 5 mg, oral, Every 4 hours PRN, moderate pain or score 4-6 of 10, Starting on Wed07/19/22 at 1330 spironolactone tablet 100 mg (ALDACTONE) [...] hours, First dose on Wed07/17/22 at 2000 2009 (Given - Provider: Lisa Carreno RYulyN.) 0051 (Given - Provider: Bev Sebastian RYulyN.)0109 (Canceled Entry - Provider: Bev Sebastian RYulyN.)0844 (Given - Provider: Ida Pichardo R.N.)1339 (Given - Provider: Ida Pichardo R.N.)2034 (Given - Provider: Lisa Carreno R.N.) 0132 (Given - Provider: Lisa Carreno R.N.)0928 (Given - Provider: Ida Pichardo R.N.) acetaminophen tablet 1,000 mg (TYLENOL) (COMPLETED) 1,000 mg, oral, Once, On Wed07/17/22 at 0700, For 1 dose, Pre-Op 0726 (Given - Provider: Disha Bernal R.N.) ampicillin-sulbactam 3 g in NaCl 0.9% IVPB (UNASYN) (COMPLETED) 3 g, intravenous, at 400 mL/hr, Administer over 15 Minutes, Once, On Wed07/17/22 at 0900, For 1 dose, Intra-Op, Mini-Bag Plus bag, Drug Monitoring Program: Pharmacist to adjust medication dosing based on indication and drug clearance factors., Indications: Prophylaxis, surgical 0835 (New Bag - Provider: Makayla Wu APRN, STITCHER AROUND)1140 (Bolus - Provider: Makayla Wu APRN, STITCHER AROUND)1430 (Bolus - Provider: Flaquita Torres APRN, STITCHER AROUND) ampicillin-sulbactam 3 g in NaCl 0.9% IVPB (UNASYN) 3 g, intravenous, at 400 mL/hr, Administer over 15 Minutes, Every 6 hours, First dose on Wed07/17/22 at 1830, Mini-Bag Plus bag, Drug Monitoring Program: Pharmacist to adjust medication dosing based on indication and drug clearance factors., Indications: Prophylaxis, surgical 1930 (New Bag - Provider: Lisa Carreno RYulyN.) 0101 (New Bag - Provider: Saad SanchezN.)0532 (New Bag - Provider: Saad SanchezN.)1130 (New Bag - Provider: Ida Pichardo RYulyN.)1732 (New Bag - Provider: Saad MackayN.) 0130 (New Bag - Provider: Lisa Carreno R.N.)0547 (New Bag - Provider: Lisa Carreno R.N.)1155 (Not Given - Provider: Ida Pichardo RYulyN. - Reason: Patient/family refused) celecoxib capsule 200 mg (CeleBREX) 200 mg, oral, 2 times daily, First dose on Wed07/17/22 at 2100 2009 (Given - Provider: Lisa Carreno R.N.) 0844 (Given - Provider: Ida Pichardo RYulyN.)203 (Given - Provider: Lisa Carreno R.N.) 1154 (Not Given - Provider: Ida Pichardo R.N. - Reason: Patient/family refused) chlorhexidine 0.12 % mouthwash 15 mL (PERIDEX) 15 mL, swish & spit, 2 times daily, First dose on Wed07/18/22 at 1000 1020 (Given - Provider: Ida Pichardo R.N.)2037 (Given - Provider: Lisa Carreno R.N.) 0942 (Given - Provider: Ida Pichardo R.N.) heparin (porcine) injection 5,000 Units 5,000 Units, subcutaneous, Every 8 hours scheduled, First dose on Wed07/17/22 at 2200 2229 (Given - Provider: Lisa Carreon RYulyN.) 0514 (Given - Provider: Bev Sebastian RYulyN.)1339 (Given - Provider: Ida Pichardo R.N.)2140 (Given [...] Patient/family refused) 2036 (Not Given - Provider: Lisa Carreno R.N. - Reason: Patient/family refused) spironolactone tablet 100 mg (ALDACTONE) 100 mg, oral, Daily, First dose on 07/18/22 at 0900 0844 (Given - Provider: Ida Pichardo R.N.) 1154 (Not Given - Provider: Ida Pichardo R.N. - Reason: Patient/family refused) Continuous Medication Order 07/17/2022 07/18/2022 07/19/2022 lactated ringers 20 mL/hr, intravenous, Continuous, Starting on Wed07/17/22 at 1830 1856 (New Bag - Provider: Lisa Carreno R.N.) lactated ringers 20 mL/hr, intravenous, Continuous, Starting [...] Intra-Op 0824 (Given - Provider: Makayla Wu, MARKETING OPERATIONS ANALYST, STITCHER AROUND) furosemide tablet 20 mg (LASIX) 20 mg, [...] to maximum total dose of 2 mg 151 (Given - Provider: Sofie Elder R.N., CCRN)1543 [...] 1821 1937 (Given - Provider: Lisa Carreno R.N.) 0050 (Given - Provider: Bev Sebastian R.N.) [...] R.N.) 0928 (Given - Provider: Ida Pichardo RYulyNYuly) oxyCODONE solution 10 mg (ROXICODONE) (CANCELED) 10 mg, oral, Every 6 hours PRN, severe pain or score 7-10 of 10, Starting on 07/17/22 at 1821 2234 (Given - Provider: Lisa Carreno R.N.) 0514 (Given - Provider: Bev Sebastian R.N.) oxyCODONE solution 10 mg (ROXICODONE) (CANCELED) 10 mg, oral, Every 4 hours PRN, moderate pain or score 4-6 of 10, Starting on 07/18/22 at 0745 0912 (See Alternative - Provider: Ida Pichardo R.N.)1339 (See Alternative - Provider: Ida Pichardo R.N.)1732 (See Alternative - Provider: Ida Pichardo R.N.)2140 (See Alternative - Provider: Lisa Carreno R.N.) 0130 (See Alternative - Provider: Lisa Carreno R.N.)0546 (See Alternative - Provider: Saad FlemingNYuly)0927 (Given - Provider: Ida Pichardo R.N.)0942 (See Alternative - Provider: Ida Pichardo R.N.) oxyCODONE solution 10 mg (ROXICODONE)(Linked Group 2) 10 mg, oral, Every 4 hours PRN, severe pain or score 7-10 of 10, Starting on 07/19/22 at 1330 oxyCODONE solution 15 mg (ROXICODONE) (CANCELED) 15 mg, oral, Every 4 hours PRN, severe pain or score 7-10 of 10, Starting on 07/18/22 at 0745 0912 (Given - Provider: Ida Pichardo R.N.)1339 (Given - Provider: Ida Pichardo R.N.)1732 (Given - Provider: Ida Pichardo R.N.)2140 (Given - Provider: Lisa Carreno R.N.) 0130 (Given - Provider: Lisa Carreno R.N.)0546 (Given - Provider: Lisa Carreno R.N.)0927 (See Alternative - Provider: Ida Pichardo R.N.)0942 (Not Given - Provider: Ida Pichardo R.N. - Reason: Other - Comment: gave 10 mg instead of 15 mg) oxyCODONE solution 5 mg (ROXICODONE)(Linked Group 2) 5 mg, oral, Every 4 hours PRN, moderate pain or score 4-6 of 10, Starting on Wed07/19/22 at 1330 polyethylene glycol powder packet 1 [...] documented as of this encounter Care Teams Cable Splicer Apprentice Relationship Specialty Start Date End Date None Reported, Pcp PCP - General Family Medicine 07/17/22 documented as of this encounter
--- OUTSIDE RECORDS SUMMARY | 2023-06-15 10:14 | XMS_ITS | Clinical Summary ---
Author Name Unknown Organization [facility] Address [place], [place] [address] Care Team Providers Care Shelving Supervisor Name Role Phone Zoltan Young MD Primary Care Provider [phone] Allergies Active Allergy Reactions Criticality Noted Date Comments Adhesive *Unknown 03/13/2020 tegaderm makes raw skin. ?? States tape is ok Gluten GI Upset 08/11/2017 Other reaction(s): GI intolerance Pollen Extracts *Unknown 09/10/2016 Nasal congestion Medications Medication Sig Dispensed Refills Start Date End Date Status albuterol HFA (PRO-AIR,VENTOLIN, PROVENTIL) 90 mcg/Actuation inhaler Inhale 2 Puffs by mouth 4 times daily if needed. 1 Inhaler 0 07/27/2010 Active rizatriptan (MAXALT) 10 mg tablet Take 10 mg by mouth every 2 hours if needed for Migraine. Max dose: 30mg per 24 hrs. 0 Active sennosides-docusat e, 8.6-50 mg, (SENOKOT S) 8.6-50 mg tabletIndications: Constipation, unspecified constipation type Take 1-4 tablets by mouth 2 times daily. 100 tablet 0 06/13/2018 Active WalkerIndications: Spinal stenosis of lumbosacral region Rolling Walker for home use for 3 months 1 Device 0 06/13/2018 Active calcium citrate (CITRACAL) 200 mg (950 mg) tablet Take 950 mg by mouth 2 times daily with meals. 0 Active cholecalciferol, Vitamin D3, 2,000 unit tablet Take 2,000 units by mouth once daily. 0 Active enoxaparin (LOVENOX) 40 mg/0.4 mL injection Inject 40 mg subcutaneous every 12 hours. 0 Active acetaminophen (TYLENOL EXTRA STRGTH) 500 mg tabletIndications: Post-op pain Take 2 tablets by mouth every 6 hours if needed. Max acetaminophen dose: 4000mg in 24 hrs. 100 tablet 0 03/18/2020 Active oxyCODONE (ROXICODONE) 5 mg immediate release tabletIndications: Post-op pain Take 1-2 tablets by mouth every 4 hours if needed for Pain (First choice for severe pain.) 60 tablet 0 03/18/2020 Active meloxicam (MOBIC) 7.5 mg tablet Take 7.5 mg by mouth once daily. 0 04/03/2022 Active Movantik 25 mg tablet Take 25 mg by mouth once daily in the morning. 0 04/07/2022 Active furosemide (LASIX) 20 mg tablet Take 20 mg by mouth once daily. 0 03/29/2022 Active Active Problems Problem Noted Date Diagnosed Date S/P spinal fusion 03/16/2020 Overview: L5/S1 Obesity 05/31/2018 Factor V Leiden mutation 05/31/2018 Overview: Heterozygous, no personal history of DVT/PE Asthma, mild persistent 05/31/2018 Depression 05/31/2018 Low back pain 05/31/2018 Stress incontinence 05/31/2018 MIKAELA (obstructive sleep apnea) 05/31/2018 Kidney stones 05/31/2018 Hypoglycemia 05/31/2018 Celiac disease 05/31/2018 Right carpal tunnel syndrome 08/05/2015 Polycystic ovary syndrome Spinal stenosis of lumbosacral region DDD (degenerative disc disease), lumbosacral Acute postoperative pain Resolved Problems Problem Noted Date Diagnosed Date Resolved Date Transient hypertension of pr egnancy, antepartum 08/30/2012 05/31/2018 Gestational hypertension 08/18/2012 Severe pre-eclampsia, unspec ified as to episode of care 02/06/2011 05/31/2018 Transient hypertension of pr egnancy, antepartum 02/05/2011 05/31/2018 Back pain complicating 01/30/2011 05/31/2018 Abdominal pain, other specified site 10/01/2009 05/31/2018 Immunizations Name Administration Dates Next Due DTaP 06/30/2012 MMR 08/31/2012 Tdap 02/07/2011 Family History Medical History Relation Name Comments Factor V Leiden deficiency Daughter Cancer Father Diabetes Father Diabetes Maternal Grandfather Heart Disease Maternal Grandfather Blood Disease Maternal Grandmother Cancer Mother Cervial Cancer Diabetes Mother Hyperlipidemia Mother Hypertension Mother Deep vein thrombosis Other cousins , positive for factor V leiden Relation Name Status Comments Daughter Father Maternal Grandfather Maternal Grandmother Mother Other Social History Tobacco Use Types Packs/Day Years Used Date Smoking Tobacco: Never Smokeless Tobacco: Never Tobacco Cessation:Counseling Given: Yes Alcohol Use Standard Drinks/Week Comments Yes 0 (1 standard drink = 0.6 oz pur e alcohol) states none in past 1-2 Sex and Gender Information Value Date Recorded Sex Assigned at Not on file Gender Identity Not on file Sexual Orientation Not on file Obstetrics History Para Term AB IAB SAB Ectopic Multiple Livin g Live Births 12 3 0 2 8 0 8 0 0 3 3 Date Outcome GA Total Labor Labor/2nd/3rd Weight Sex Delivery Anes PTL Марина A1 A5 Name Cl in SAB SPONTANE O US SAB SPONTANE O US SAB SPONTANE O US SAB SPONTANE O US SAB SPONTANE O US SAB SPONTANE O US SAB SPONTANE O US Comments: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 Please review and update details. Comments: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 Please review and update details. 1999 28w 0d 0.79 kg (1 lb 12 oz) F Spina l Y Cheryl ng Delivery [facility] 10/20 07 36w 0d 3.46 kg (7 lb 10 oz) F Spina l N Cheryl ng Delivery Location:[facility] 02/06 Para 2.48 kg (5 lb 7.4 oz) F Cheryl ng 8 6 VIERL ING,B G(ANNELISE WHITTAKER H) Delivery Location:[facility] 12/20 12 SAB SPONTANEO US Last Filed Vital Signs Vital Sign Reading Time Taken Comments Blood Pressure 134/83 03/18/2020 7:00 AM ANY COMMODITY SALES DELIVERER Pulse 70 03/18/2020 7:00 AM ANY COMMODITY SALES DELIVERER Temperature 36.6 ??C (97.8 ??F) 03/18/2020 7:00 AM CS T Respiratory Rate 18 03/18/2020 7:00 AM ANY COMMODITY SALES DELIVERER Oxygen Saturation 97% 03/18/2020 7:00 AM ANY COMMODITY SALES DELIVERER Inhaled Oxygen Concentration - - Weight 95.3 kg (210 lb) 04/13/2022 9:35 AM ANY COMMODITY SALES DELIVERER Height 165.1 cm (5' 5) 04/13/2022 9:35 AM ANY COMMODITY SALES DELIVERER Body Mass Index 34.95 04/13/2022 9:35 AM ANY COMMODITY SALES DELIVERER Plan of Treatment Health Maintenance Due Date Last Done Comments COVID-19 vaccine series (#1) 03/30/1980 Depression screening for age 12+ 1991 HIV for age 15-65 09/27/1994 Hepatitis C screening for age 18-79 09/27/1997 Tetanus booster 02/07/2021 02/07/2011 Influenza for age 9-49 01/01/2023 BMI (ht and wt on same day) for age 18+ 04/13/2023 04/13/2022, 05/31/2018, 10/29/2016, Additional history exists Pap test for age 21-65 06/14/2023 06/14/2020, 2020 Tdap Completed 02/07/2011 Pneumococcal series for age 6-64 Aged Out No longer eligible based on patient's age to complete this topic Medical Devices Implanted Type Area Hr Generalist Device Identifier Shelf Expiration Date Model / Serial / Lot Inactive See # [id number] 11/14/14 Mesh Ventral 12cm Parietex - [id number] Implanted:Qty: 1 on 01/24/2015 by Madan Navarrete MD at [facility] N/A: Abdomen COVIDIEN - AUTOSUTURE 09/30/2018 [id number]# / / [id number] Description:Implanted into r ight incisional hernia Screw Lmbr Post 7.5x45mm Solera 5.5/6 Va Cocr - [id number] Implanted:Qty: 6 on 06/10/2018 by Darryn Talbot MD at [facility] N/A: Spine Medtronic Spine/Ortho [id number]# / / [id number] one 1-4mm 60cc Medtronic Fine Canclls Freeze Dried Implanted:Qty: 1 on 06/10/2018 by Darryn Talbot MD at [facility] Explanted:at [facility] (Quantity not on file) N/A: Spine Medtronic Spine/Ortho 10/06/2022 [id number]# / [id number] / [id number] one 1-4mm 90cc Medtronic Chips Canclls Freeze Dried Implanted:Qty: 1 on 06/10/2018 by Darryn Talbot MD at [facility] Explanted:at [facility] (Quantity not on file) N/A: Spine Medtronic Spine/Ortho 10/26/2022 [id number]# / [id number] / [id number] one 1-4mm 30cc Medtronic Chips Canclls Freeze Dried Implanted:Qty: 1 on 06/10/2018 by Darryn Talbot MD at [facility] Explanted:at [facility] (Quantity not on file) N/A: Spine Medtronic Spine/Ortho 10/05/2022 [id number]# / [id number] / [id number] one 1-4mm 30cc Medtronic Chips Canclls Freeze Dried Implanted:Qty: 1 on 06/10/2018 by Darryn Talbot MD at [facility] Explanted:at [facility] (Quantity not on file) N/A: Spine Medtronic Spine/Ortho 10/25/2022 [id number]# / [id number] / Spacer Lmbr Lg 12mm 8deg Perimeter Alif Peek - [id number] Implanted:Qty: 1 on 06/10/2018 by Darryn Talbot MD at [facility] N/A: Spine Medtronic Spine/Ortho 03/30/2025 [id number] / / [id number] Spacer Peek Lg 10mm 8deg Perimeter Alif Peek - [id number] Implanted:Qty: 1 on 06/10/2018 by Darryn Talbot MD at [facility] N/A: Spine Medtronic Spine/Ortho 04/01/2025 [id number] / / [id number] Spacer Lmbr Lg 14mm 8deg Perimeter Alif Peek - [id number] Implanted:Qty: 1 on 06/10/2018 by Darryn Talbot MD at [facility] N/A: Spine Medtronic Spine/Ortho 06/02/2020 [id number] / / [id number] Graft Bone 10cc Fibercel - [id number] Implanted:Qty: 1 on 03/15/2020 by William Barrow MD at [facility] N/A: Lumbar Vertebrae Medtronic Spine/Ortho 01/16/2022 [id number] / [id number] / [id number] Description:LOGGED JM Screw Spinal 10.5x90mm Va Cnnltd Tc - [id number] Implanted:Qty: 1 on 03/15/2020 by William Barrow MD at [facility] N/A: Lumbar Vertebrae Medtronic Spine/Ortho 09/13/2026 [id number]# / / [id number] Description:CHECKED JM Screw Lmbr Post 9.5x40mm Solera 5.5/6 Va Cocr - [id number] Implanted:Qty: 2 on 03/15/2020 by William Barrow MD at [facility] N/A: Lumbar Vertebrae Medtronic Spine/Ortho [id number]# / / Description:CHECKED JM Set Screw Lmbr Ant 5.5mm Solera Break Off - [id number] Implanted:Qty: 8 on 03/15/2020 by William Barrow MD at [facility] N/A: Lumbar Vertebrae Medtronic Spine/Ortho [id number]# / / Description:CHECKED JM Bone Matrix 17.5x50mm Magnifuse Pc Dbm - [id number] Implanted:Qty: 1 on 03/15/2020 by William Barrow MD at [facility] N/A: Lumbar Vertebrae Medtronic Spine/Ortho 05/22/2021 [id number]# / [id number] / Description:LOGGED AND FAXED JM Colby Lmbr 90x5.5mm Solera 5.5/6cvd Co Cr - [id number] Implanted:Qty: 2 on 03/15/2020 by William Barrow MD at [facility] N/A: Lumbar Vertebrae Medtronic Spine/Ortho [id number] # / / Description:CHECKED JM Set Screw Lmbr Std Colby Connection Titnm - [id number] Implanted:Qty: 2 on 03/15/2020 by William Barrow MD at [facility] N/A: Lumbar Vertebrae Medtronic Spine/Ortho [id number] / / Description:CHECKED JM Plate Lmbrosslink Multispan Low Profile - [id number] Implanted:Qty: 1 on 03/15/2020 by William Barrow MD at [facility] N/A: Lumbar Vertebrae Medtronic Spine/Ortho [id number]# / / Description:CHECKED JM [id number] - [id number] Implanted:Qty: 2 on 03/15/2020 by William Barrow MD at [facility] N/A: Lumbar Vertebrae Medtronic [id number] / / Description:OFF SET Set Screw Lmbr Ant 5.5mm Solera Break Off - [id number] Implanted:Qty: 8 on 06/10/2018 by Darryn Talbot MD at [facility] Explanted:Qty: 6 on 03/15/2020 by William Barrow MD at [facility] N/A: Spine Medtronic Spine/Ortho [id number]# / / Explanted Type Area Hr Generalist Device Identifier Shelf Expiration Date Model / Serial / Lot Screw Lmbr Post 7.5x35mm Solera 5.5/6 Va Cocr - [id number] Implanted:Qty: 2 on 06/10/2018 by Darryn Talbot MD at [facility] Explanted:Qty: 2 on 03/15/2020 at [facility] N/A: Spine Medtronic Spine/Ortho [id number]# / / Colby Lmbr 100x5.5mm Solera 5.5/6 Cvd Titnm - [id number] Implanted:Qty: 2 on 06/10/2018 by Darryn Talbot MD at [facility] Explanted:Qty: 2 on 03/15/2020 at [facility] N/A: Spine Medtronic Spine/Ortho [id number]# / / Description:Cut part of rods Pin Spine 150mm Perc Reference - [id number] Explanted:Qty: 1 on 03/15/2020 at [facility] N/A: Lumbar Vertebrae Medtronic [employer] 12/19/2022 [id number]# / / [id number] Description:NO STICKER JM Advance Directives Latest Code Status on File Code Status Date Activated Date Inactivated Comments Full Code 03/15/2020 8:02 AM 03/18/2020 6:14 PM Question Answer Comments Code Status Discussion: Not Discussed Code Status History Code Status Date Activated Date Inactivated Comments Full Code 06/10/2018 9:35 PM 06/13/2018 5:01 PM Full Code 08/11/2017 6:21 AM 08/11/2017 1:20 PM Full Code 08/11/2017 6:21 AM 08/11/2017 6:21 AM Full Code 06/17/2017 5:58 AM 06/17/2017 3:00 PM Care Teams Shelving Supervisor Relationship Specialty Start Date End Date Zoltan Young MD [address] [place] [address] PCP - General Family Practice 06/17/17
--- OUTSIDE RECORDS SUMMARY | 2023-06-15 10:14 | XMS_ITS | Encounter Summary ---
Author Name Unknown Organization [facility] Address [address] [place] [address] Care Team Providers Care Sample Distributor Name Role Phone Unavailable Primary Care Provider Unavailabl e Encounter Details Date Type Department Care Team ([facility] Contact Info) Description 07/10/2022 Orders Only Division of annealing operator in [place], [place] [address] [place] [address] Ector Anaya M.D., D.M.D. [address] [place] [address] Social History Tobacco Use Types Packs/Day Years [...] often do you attend chur ch or mosque services? Patient declined 04/14/2021 Do [...] medical care, and heating? Somewhat hard 04/14/2021 [facility] - Occupational Stress Questionnaire Answer [...] Sex Assigned at Female 04/19/2017 7:28 PM TOOL LAPPER HAND Gender Identity Female 04/19/2017 7:28 PM TOOL LAPPER HAND Sexual Orientation Straight 04/19/2017 7: 28 PM TOOL LAPPER HAND documented as of this encounter Plan of Treatment Not on file documented as of this encounter Visit Diagnoses Not on filedocumented in this encounter Additional Health Concerns Assessment Noted Time PHQ-9 Depression Total Score: 12 016 2:38 PM CDT documented as of this encounter
--- OUTSIDE RECORDS SUMMARY | 2023-06-15 10:14 | XMS_ITS | Encounter Summary ---
Author Name Unknown Organization [facility] Address [address] [place] [address] Care Team Providers Care Strategic Partnership Manager Name Role Phone Unavailable Primary Care Provider Unavailabl e Reason for Referral * Outpatient (Routine) - Closed Specialty Diagnoses / Procedures Referred By Frandy acevedo Referred To Contact Ector Anaya M.D., AsadMBrittaney [address] [place] [address] [facility] Referral ID Status Reason Start Date Expiration Date Visits Re quested Visits Authorized [id number] Closed 07/16/2022 07/15/2025 1 1 Scheduling Instructions M12 08/31 @ 11:20 portal * Outpatient (Routine) - Closed Specialty Diagnoses / Procedures Referred By Frandy acevedo Referred To Contact Video Medicine Diagnoses Follow Up Examination Status Post Surgery Ector Anaya M.D., John [address] [place] [address] [facility] Referral ID Status Reason Start Date Expiration Date Visits Re quested Visits Authorized [id number] Closed 07/16/2022 07/16/2023 1 1 Scheduling Instructions VIDEO/RES to see calendar on 07/30 @ 1:30 /portal Encounter Details Date Type Department Care Team (Late st Contact Info) Description 07/16/2022 Orders Only Division of atg java developer in [place], [place] [address] [place] [address] Rae Casey L.D.A. Follow Up Examination Status [...] often do you attend chur ch or holiness services? Patient declined 04/14/2021 Do you belong [...] medical care, and heating? Somewhat hard 04/14/2021 [facility]at [facility] - Occupational Stress [...] Sex Assigned at Female 04/19/2017 7:28 PM CORE FILER Gender Identity Female 04/19/2017 7:28 PM CORE FILER Sexual Orientation Straight 04/19/2017 7: 28 PM CORE FILER documented as of this encounter Plan of Treatment Scheduled Referrals Name Type Priority Associated Diagnoses Order Schedule Video anyplace visit Outpatient Referral Routine Follow Up Examination Status Post Surgery Expected: 07/30/2022, Expires: 10/17/2023 atg java developer Post Op (clinic) Outpatient Referral Routine Expected: 08/31/2022, Expires: 10/17/2023 documented as of this encounter Visit Diagnoses Diagnosis Follow Up Examination Status Post Surgery- Primary documented in this encounter Additional Health Concerns Assessment Noted Time PHQ-9 Depression Total Score: 12 016 2:38 PM CDT documented as of this encounter
--- OUTSIDE RECORDS SUMMARY | 2023-06-15 10:14 | XMS_ITS | Encounter Summary ---
Author Name Unknown Organization [facility] Address [address] [place] [address] Care Team Providers Care Global Logistics Analyst Name Role Phone Unavailable Primary Care Provider Unavailabl e Encounter Details Date Type Department Care Team (Latest Contact Info) Description 06/16/2022 Clinical Communication Division of house furnishings supervisor in [place], [place] [address] [place] [address] Ector Anaya M.D., D.M.D. [address] [place] [address] Social History Tobacco Use Types Packs/Day Years [...] often do you attend chur ch or hindu services? Patient declined 04/14/2021 Do you belong to any clubs o r organizations such as mormonism groups, unions, fraternal or athletic groups, or [...] 04/14/2021 [facility] Occupat ional [facility] - Occupational Stress Questionnaire Answer Date [...] place to sleep or slept in a senior living (including now)? No 04/14/2021 Nutrition Answer Date [...] Sex Assigned at Female 04/19/2017 7:28 PM WOODWORKING MACHINE FEEDER Gender Identity Female 04/19/2017 7:28 PM WOODWORKING MACHINE FEEDER Sexual Orientation Straight 04/19/2017 7: 28 PM WOODWORKING MACHINE FEEDER documented as of this encounter Plan of Treatment Not on file documented as of this encounter Visit Diagnoses Not on filedocumented in this encounter Additional Health Concerns Assessment Noted Time PHQ-9 Depression Total Score: 12 016 2:38 PM CDT documented as of this encounter
--- OUTSIDE RECORDS SUMMARY | 2023-06-15 10:15 | XMS_ITS | Encounter Summary ---
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 PM CDT 02/08/2023 8:10 PM CDT Betsey Willett MD LAB ONLY ORDERS [address], [place] [address] * (ABNORMAL) COMPREHENSIVE METABOLIC PANEL (02/08/2023 8:03 PM CDT) [facility] Glucose 75 70 - 99 mg/dL 02/08/2023 8:53 PM [place] [address] [facility] BUN 16 6 - 22 mg/dL 02/08/2023 8:53 PM [place] [address] [facility] Creatinine 1.09(H) 0.55 - 1.02 mg/dL 02/08/2023 8:53 PM [place] [address] [facility] BUN/Creatinine Ratio 14.7 10.0 - 25.0 02/08/2023 8:53 PM [place] [address] [facility] Sodium 142 136 - 145 meq/L 02/08/2023 8:53 PM [place] [address] [facility] Potassium 3.3(L) 3.5 - 5.1 meq/L 02/08/2023 8:53 PM [place] [address] [facility] Chloride 112(H) 98 - 109 meq/L 02/08/2023 8:53 PM [place] [address] [facility] CO2 19(L) 20 - 29 meq/L 02/08/2023 8:53 PM [place] [address] [facility] Anion Gap with K 14 6 - 20 meq/L 02/08/2023 8:53 PM [place] [address] [facility] Calcium 9.5 8.5 - 10.5 mg/dL 02/08/2023 8:53 PM [place] [address] [facility] Protein Total 7.1 6.0 - 8.3 g/dL 02/08/2023 8:53 PM [place] [address] [facility] Albumin 4.3 3.5 - 5.2 g/dL 02/08/2023 8:53 PM [place] [address] [facility] Alkaline Phosphatase 74 40 - 150 U/L 02/08/2023 8:53 PM [place] [address] [facility] AST - SGOT 18 5 - 34 U/L 02/08/2023 8:53 PM [place] [address] [facility] ALT - SGPT 18 0 - 55 U/L 02/08/2023 8:53 PM [place] [address] [facility] Bilirubin Total 0.4 0.2 - 1.2 mg/dL 02/08/2023 8:53 PM [place] [address] [facility] Age 42 Years 02/08/2023 8:53 PM [place] [address] [facility] eGFRcr() 65 >=60 mL/min/1.7 3m2 02/08/2023 8:53 PM [place] [address] [facility] Blood BLOOD SPECIMEN / Unknown IV start / Unknown 02/08/2023 8:03 PM CDT 02/08/2023 8:10 PM CDT Betsey Willett MD LAB BLOOD Performing Organization Address [facility]/ZIP Co de Phone Number [facility] [address] [facility] [address] [facility] [place] [address] * GLUCOSE BY METER, POCT (02/08/2023 7:50 PM CDT) Glucose POC 81 70 - 99 mg/dL 02/08/2023 7:52 PM CDT POINT OF CARE TESTING Blood BLOOD SPECIMEN / Unknown 02/08/2023 7:50 PM CDT 02/08/2023 7:52 PM CDT Elliott Bolton MD LAB POINT OF CARE Performing Organization Address [facility] Co de Phone Number POINT OF CARE TESTING [address] [facility] [place] [address] * EKG (02/08/2023 7:35 PM CDT) EKG WAVEFORM Sinus rhythm with short [place] Marked Baseline Artifact Adversely Affects Interpretation Repeat ECG Otherwise normal ECG No previous ECGs available Ventricular Rate: 64 BPM Atrial Rate: 64 BPM P-R Interval: 110 ms QRS Duration: 72 ms Q-T Interval: 392 ms QTc Calculation(Bazett ): 404 ms Calculated P [place]: 37 degrees Calculated R [place]: 64 degrees Calculated T [place]: 63 degrees CANDELARIO RHODES 02/08/2023 7:35 PM CDT 02/09/2023 9:06 AM CDT Betsey Willett MD EKG Performing Organization Address City/[facility]/ZIP Co de Phone Number CANDELARIO RHODES * GLUCOSE BY METER, POCT (02/08/2023 7:09 PM CDT) Glucose POC 91 70 - 99 mg/dL 02/08/2023 7:12 PM CDT POINT OF CARE TESTING Blood BLOOD SPECIMEN / Unknown 02/08/2023 7:09 PM CDT 02/08/2023 7:12 PM CDT Poct Glucometer RESOURCE LAB POINT OF CA RE POINT OF CARE TESTING [address] [place] [address] documented in this encounter Visit Diagnoses Diagnosis Unresponsive episode- Primary Other alteration of consciousness Dehydration Type 2 diabetes mellitus without complication, without long-term current use of insulin (HCC) documented in this encounter Administered Medications Inactive Administered Medications - up to 3 most recent administrations Medication Order MAR Action Action Date Dose Rate Site sodium chloride 0.9% (bolus) IV solution 1,000 mL 1,000 mL, IV, Bolus, 1 dose, On Wed02/08/23 at 2335, 1,000 mL New Bag 02/08/2023 11:17 PM CDT 1,000 mL sodium chloride 0.9% IV solution IV, at 150 mL/hr, Now, 1 dose, On Wed02/08/23 at 2020, 1,000 mL New Bag 02/08/2023 8:28 PM CDT 150 mL/hr documented in this encounter Active and Recently Administered Medications Times are shown in CDT. Scheduled Medication Order 02/07/2023 02/08/2023 02/09/2023 sodium chloride 0.9% (bolus) IV solution 1,000 mL (COMPLETED) 1,000 mL, IV, Bolus, 1 dose, On Wed02/08/23 at 2335, 1,000 mL 2317 (New Bag - Provider: Dawn Arcos, TRACY) 0027 (Stopped - Provider: Dawn Arcos, RN) sodium chloride 0.9% IV solution (COMPLETED) IV, at 150 mL/hr, Now, 1 dose, On Wed02/08/23 at 2020, 1,000 mL 8 (New Bag - Provider: Dawn Arcos, RN)2316 (Stopped - Provider: Dawn Arcos, RN) documented in this encounter Care Teams Legal Investigator Relationship Specialty Start Date End Date Provider, No Attributed, RESOURCE [address] PCP - Attributed Provider 04/29/22 Pcp, No, You have no PCP on file PCP - General 05/05/22 [facility] CONNIE BRADEN 06/23/22 documented as of this encounter
--- OUTSIDE RECORDS SUMMARY | 2023-06-15 10:15 | XMS_ITS | Encounter Summary ---
Author Name Unknown Organization [facility] Address [address] [place] [address] Care Team Providers Care Pullman Car Repairer Name Role Phone Provider, No Attributed RESOURCE Unavailable Unavailable Pcp, No MD [facility] Unavailable Unavaila ble Reason for Referral * [facility] (Routine) - New Request Specialty Diagnoses / Procedures Referred By Frandy acevedo Referred To Contact Behavioral Health Diagnoses Obesity (BMI 30-39.9) Veronica Dove APRN-CNP [address] [place] [address] o Eating Disorders [address] [place] [address] [place] [address] Referral ID Status Reason Start Date Expiration Date V isits Requested Visits Authorized [id number] New Request 05/13/2023 1 1 Scheduling Instructions This is an electronic referral. Question Answer Priority Routine/Next Available CONSULTATION PLAN Evaluate and Treat Reason/Details for Consult/Referral? wants gastric bypass Comments Body mass index is 37.73 kg/m??. TOOL OPERATOR * (Routine) Specialty Diagnoses / Procedures Referred By Frandy acevedo Referred To Contact [facility] [address] [place] [address] Referral ID Status Reason Start Date Expiration Date Visits Re quested Visits Authorized Question Answer Specifics Medical Nutrition Therapy (Nutritional Assessment & Education) Reason for Nutrition Therapy Other: Please specify diagnosis and any specific diet parameters - reactive hypoglycemia Comments Body mass index is 37.73 kg/m??. For Intensive Behavioral Therapy, please associate the diagnosis that includes the specific BMI range. TOOL OPERATOR Reason for Visit * Reason Comments Referral Diabetes NPT, office visit * Comprehensive Primary [facility] Plus (Routine) - New Request Specialty Diagnoses / Procedures Referred By Contac t Referred To Contact Endocrinology Diagnoses Obesity Hypoglycemia Zoltan Young MD [address] [place] [address] [facility] [address] [place] [address] Referral ID Status Reason Start Date Expiration Date V isits Requested Visits Authorized [id number] New Request 03/24/2023 1 1 Encounter Details Date Type Department Care Team (Latest Contact Info) Description 05/13/2023 7:15 AM AIR TOOL OPERATOR Office Visit [facility] [address] [place] [address] Veronica Dove APRN-CNP [address] [place] [address] Reactive hypoglycemia (Primary Dx); Screening for thyroid disorder; Obesity (BMI 30-39.9) Discharge Disposition: Home, Self Care Social History Tobacco Use Types Packs/Day Years Used Date Smoking Tobacco: Never Smokeless Tobacco: Never Sex and Gender Information Value Date Recorded Sex Assigned at Female 04/15/2022 9:22 PM AIR TOOL OPERATOR Gender Identity Female 04/15/2022 9:22 PM AIR TOOL OPERATOR Sexual Orientation Bisexual 04/15/2022 9: 22 PM AIR TOOL OPERATOR documented as of this encounter Last Filed Vital Signs Vital Sign Reading Time Taken Comments Blood Pressure 126/72 05/13/2023 7:28 AM AIR TOOL OPERATOR Pulse 76 05/13/2023 7:28 AM AIR TOOL OPERATOR Temperature - - Respiratory Rate - - Oxygen Saturation - - Inhaled Oxygen Concentration - - Weight 96.6 kg (213 lb) 05/13/2023 7:28 AM AIR TOOL OPERATOR Height - - Body Mass Index 37.73 02/08/2023 7:22 PM CDT documented in this encounter Progress Notes * Veronica Dove, JANITORIAL ASSISTANT-DEMONSTRATOR ELECTRIC GAS APPLIANCES - 05/13/2023 7:24 AM CST ENDOCRINOLOGY HYPOGLYCEMIA CONSULT 05/13/2023 NAME: Betsey Godinez is a 42yr old female PCP: ANU LEÓN MD Impression / Plan ICD-10-CM 1. Reactive hypoglycemia E16.1 CORTISOL TOTAL, A.M. TISSUE TRANSGLUTAMINASE ANTIBODY PROFILE, IGG & IGA ENDOMYSIAL IGA ANTIBODY SEMI-QUANTITATIVE GLYCATED HEMOGLOBIN CLINIC REFERRAL DIETITIAN ONE CHART C-PEPTIDE GLUCOSE semaglutide (OZEMPIC, 1 MG/DOSE,) 4 mg/3 mL subcutaneous injection solution (pen) Dexcom G7 Sensor 2. Screening for thyroid disorder Z13.29 TSH REFLEX 3. Obesity (BMI 30-39.9) E66.9 CLINIC REFERRAL ADULT WEIGHT LOSS PROGRAM ONE CHART 1. Hypoglycemia: The patient was referred to our clinic by Zoltan Young for hypoglycemia. She does not have a history of type 2 diabetes. Does have a history of PCOS/insulin resistance. She has been on metformin in the past for this. Apple gives a history of losing 100 pounds on keto in 2014. She then had skin removal surgery due to her rapid weight loss. She has had a laparoscopic cholecystectomy in 1999, laparoscopic inguinal hernia repair, laparoscopic bilateral ovarian tube removal and back surgery in 2018 and 2 surgeries in 2020 which was an open surgery from the front. She has not had any direct surgeries on her digestivesystem such as gastric bypass. She states on Father's Day 2017 she was unresponsive and they felt it was due to a low blood sugar.She states she also had the same type of episode in January 2023. There have not been any hypoglycemic events caught per glucose meter or lab draw. She states she will get shaky, sweaty, anxiety feeling, and really tired and will treat by eating something however if her blood sugar is really low she will be candidate for fruit snack. States that this resolves her symptoms within 10-15 minutes. Please see below for brief meal recall. Breakfast: Egg, sutherland, bagel AM snack: cheese/crackers, bananas Lunch: chicken tacos wrap, sandwich PM: cheeze it, cheese/crackers Supper:meat, veggie HS snack: ice cream We reviewed possible causes for hypoglycemia including reactive hypoglycemia, insulinoma, adrenal insufficiency, and malabsorptive issues such as Crohn's, celiac disease. Given that Apple has not had any extensive GI surgeries, gastric bypass, or extensive GI issues reactive or malabsorptive hypoglycemia is very unlikely. As a precaution we can screen for celiac disease. Adrenal insufficiency can cause hypoglycemia as well, my suspicion is very low as the patient has not had unexpected weight loss, nausea, vomiting, or excessive fatigue. We will check an 8 AM cortisol level to rule this out. My suspicion for insulinoma is very low as the Betsey Godinez is not having any nocturnal hypoglycemia. She does have a Dexcom G7 that she has been wearing since approximately March 25 which did show some lower blood sugars overnight however they seem like they might be sensor low versus a true low blood sugar. These have not been checked with a fingerstick for confirmation. She also has a day where she has sugars in the 40s however this was right after sensor was placed and the sensors are know to have sensor low upon starting. Again, these were not confirmed with a fingerstick I was able to review her Dexcom and it does look like she has reactive hypoglycemia. She is not dropping low however she is having quite rapid inclines and declines which she may be feeling. Discussed with reactive hypoglycemia the best and usually only treatment is dietary changes. She is willing to meet with dietitian today and this appointment was made per myself. Referral placed. She was started on Ozempic 0.25 mg and Dexcom G7 per her PCP. We discussed increasing her Ozempic to 0.5 mg and continuation of the G7. We also discussed that insurance may not continue to pay for the Ozempic/Dexcom due to not having the diagnosis of type 2 diabetes. I do not see any way in her chart where she would have had a diagnostic hemoglobin A1c or other qualifying criteria. We will wait for labs to result and that we will determine if we need to do different treatment/further investigation. Also discussed checking blood sugar via fingerstick should she get any low alerts on her Dexcom for confirmation of true hypoglycemia. Dexcom G7 05/13/23- 90 day data In target 99% High <1% Very high 0% Low <1% Very low <1% Wear time 66% Average glucose 99 mg/dl Return if symptoms worsen or fail to improve. Patient verbalizes understanding and agreement with above plan and everything that was discussed. Apple has no further questions or concerns at this time. Thank you for allowing me to participate in the care of Betsey Godinez. CC Reactive hypoglycemia HPI Betsey Godinez is a 42yr female who is seen in clinic for hypoglycemia. Please see above for full history. Lives at home with her spouse and 3 children. Works at [employer], daytime hours. Medications Current Outpatient Medications Medication Sig Dispense Refill Lancets 30G MISC Use to check blood glucose three times daily and as needed. 100 each 4 Blood Glucose Monitoring Suppl (Media RetrieversIO IQ SYSTEM) w/Device KIT 1 Kit 1 time per day 1 Kit 0 buPROPion (WELLBUTRIN SR) 150 mg SR (12 hr) tablet Take 150 mg by mouth 2 times a day celecoxib (CELEBREX) 200 mg capsule TAKE 1 CAPSULE(200 MG) BY MOUTH TWICE DAILY polyethylene glycol (MIRALAX) 17 GM/SCOOP powder Take by mouth ondansetron (ZOFRAN ODT) 4 mg dispersible tablet Take 4 mg by mouth oxyCODONE (OXY-IR) 5 mg tablet (immediate release) [...] mg by mouth 1 time per day semaglutide (OZEMPIC, 1 MG/DOSE,) 4 mg/3 mL subcutaneous injection solution (pen) Inject 1 mg underthe skin 1 time a week 9 mL 4 Dexcom G7 Sensor Apply new sensor to be used every 10 days with Dexcom G7. 9 each 3 No current facility-administered medications for this visit. Allergies Allergies Allergen Reactions Adhesives Unknown/Not Verified tegaderm makes raw skin. States tape is ok Gluten Meal Other (Specify in Comments) Other reaction(s): GI intolerance Pollen Extract-Tree Extract Unknown/Not Verified and Other (Specify in Comments) Nasal congestion Medical / Surgical History reviewed. No pertinent past medical history. History reviewed. No pertinent surgical history. Family History History reviewed. No pertinent family history. Social History Social History Tobacco Use Smoking status: Never Smokeless tobacco: Never Social History Substance and Sexual Activity Drug Use Not on file Problem List Patient Active Problem List Diagnosis Pain in both hands Bilateral hand numbness Physical Exam BP 126/72 (Patient Position: Sitting) Pulse 76 Wt 96.6 kg (213 lb) BMI 37.73 kg/m2 General: Comfortable, no obvious distress Eyes: Sclera anicteric, no pallor Neck: Trachea midline Resp: good effort Skin: No rashes, lesions, or subcutaneous nodules, no striae Psych: Alert and orientated x 3. Appropriate affect, good insight Extremities: No peripheral edema, no tenderness Musculoskeletal: Appropriate muscle bulk and strength Neuro: Moves all four extremities. No focal deficits on limited exam. Labs/Imaging I have reviewed laboratory studies myself. I spent a total of 76 minutes on the patient's care today including preparing for the visit, the visit, documentation, and follow-up care. This does not include any procedure time. CHRISTIANO Aguilar TOOL OPERATOR documented in this encounter Miscellaneous Notes * Patient Instructions - Veronica Dove APRN-CNP - 05/13/2023 7:15 AM AIR TOOL OPERATOR Please have [place] fax your recrods to [phone] ([facility]) I think what you have is reactive hypoglcyemia Please have labs completed before you leave TOOL OPERATOR documented in this encounter Plan of Treatment Upcoming Encounters Date Type Department Care Team (Late st Contact Info) Description 07/23/2023 11:00 AM CDT Office Visit [facility] EATING DISORDER WEIGHT LOSS MANAGEMENT [address] [place] [address] [place] [address] Kolby Parker MD [address] [place] [address] Discharge Disposition: Home, Self Care Scheduled Referrals Name Type Priority Associated Diagnoses Orde r Schedule CLINIC REFERRAL DIETITIAN ONE CHART Referral Routine Reactive hypoglycemia Ordered: 05/13/2023 CLINIC REFERRAL ADULT WEIGHT LOSS PROGRAM ONE CHART Referral Routine Obesity (BMI 30-39.9) Ordered: 05/13/2023 documented as of this encounter Results * GLUCOSE (05/13/2023 8:50 AM AIR TOOL OPERATOR) [facility] Glucose 71 70 - 99 mg/dL 05/13/2023 11:57 AM AIR TOOL OPERATOR [facility] Blood BLOOD SPECIMEN / Unknown Venipuncture / Unknown 05/13/2023 8:50 AM AIR TOOL OPERATOR 05/13/2023 8:52 AM AIR TOOL OPERATOR Veronicamao Cheungelin GRAFF-DEMONSTRATOR ELECTRIC GAS APPLIANCES LAB BLOOD [address] [address] * TSH REFLEX (05/13/2023 8:50 AM AIR TOOL OPERATOR) [facility] TSH 1.53 0.35 - 4.94 uIU/mL 05/13/2023 11:57 AM AIR TOOL OPERATOR [facility] Blood BLOOD SPECIMEN / Unknown Venipuncture / Unknown 05/13/2023 8:50 AM AIR TOOL OPERATOR 05/13/2023 8:52 AM AIR TOOL OPERATOR Veronicamao Cheungen JANITORIAL ASSISTANT-DEMONSTRATOR ELECTRIC GAS APPLIANCES LAB BLOOD [address] [address] * (ABNORMAL) C-PEPTIDE (05/13/2023 8:50 AM AIR TOOL OPERATOR) Pathologist [facility] C Peptide 7.4(H) 1.1 - 4.4 ng/mL 05/14/2023 10:[address] [facility] VARSHA TRACY Blood BLOOD SPECIMEN / Unknown Venipuncture / Unknown 05/13/2023 8:50 AM AIR TOOL OPERATOR 05/13/2023 8:52 AM AIR TOOL OPERATOR [facility] TRACY [address] [facility] [place] [address] * GLYCATED HEMOGLOBIN (05/13/2023 8:50 AM [facility]) [facility] Hgb A1C 4.4 <5.7 % 05/13/2023 11:42 AM [facility] Estimated Average Glucose 80 mg/dL 05/13/2023 11:42 AM [facility] Blood BLOOD SPECIMEN / Unknown Venipuncture / Unknown 05/13/2023 8:50 AM AIR TOOL OPERATOR 05/13/2023 8:52 AM AIR TOOL OPERATOR Narrative [facility] - 05/13/2023 11:42 AM [facility] ADA Interpretive Guidelines When Using HbA1c for Diagnosis Prediabetes 5.7 - 6.4% Diabetes >= 6.5% When Using HbA1c for Monitoring a Person Known to Have Diabetes, < 7% is a reasonable goal for many non adults, < 7.5% should be considered in children and adolescents (<19 years) with type 1 diabetes. ADA Standards of Medical Care in Diabetes - 2019 Veronicamao Cheungelin [facility] [address] [address] * ENDOMYSIAL IGA ANTIBODY SEMI-QUANTITATIVE (05/13/2023 8:50 AM [facility]) Pathologist [facility] Endomysial IgA Negative Negative 05/18/2023 1:[address] [facility] VAR[facility] TRACY Blood BLOOD SPECIMEN / Unknown Venipuncture / Unknown 05/13/2023 8:50 AM AIR TOOL OPERATOR 05/13/2023 8:52 AM AIR TOOL OPERATOR Veronica Dove JANITORIAL ASSISTANT-DEMONSTRATOR ELECTRIC GAS APPLIANCES LAB BLOOD [facility] VAR[facility] TRACY [address] [facility] [place] [address] * CORTISOL TOTAL, A.M. (05/13/2023 8:50 AM AIR TOOL OPERATOR) Cortisol AM 9.6 3.7 - 19.4 ug/dL 05/13/2023 12:26 PM AIR TOOL OPERATOR [facility] Blood BLOOD SPECIMEN / Unknown Venipuncture / Unknown 05/13/2023 8:50 AM AIR TOOL OPERATOR 05/13/2023 8:52 AM AIR TOOL OPERATOR Veronicamao Cheungelin DIAZN-DEMONSTRATOR ELECTRIC GAS APPLIANCES LAB BLOOD Performing Organization Address City/[facility] Co de Phone Number [address] [address] documented in this encounter Visit Diagnoses Diagnosis Reactive hypoglycemia- Primary Hypoglycemia, unspecified Screening for thyroid disorder Obesity (BMI 30-39.9) Obesity, unspecified documented in this encounter Care Teams Pullman Car Repairer Relationship Specialty Start Date End Date Provider, No Attributed, RESOURCE [address] PCP - Attributed Provider 04/29/22 PcpAnu MD You have no PCP on file PCP - General 05/05/22 Krypton, Dietitian Clinic [facility] CONNIE 06/23/22 documented as of this encounter
--- OUTSIDE RECORDS SUMMARY | 2023-06-15 10:15 | XMS_ITS | Encounter Summary ---
Author Name Unknown Organization [facility] Address [address] [place] [address] Care Team Providers Care Human Resources Services Specialist Name Role Phone Provider, No Attributed RESOURCE Unavailable Unavailable Pcp, No MD Primary Care Provider [facility] radha Lucas, Dietitian Clinic Unavailable Unavaila ble Encounter Details Date Type Department Care Team ([facility] Contact Info) Description 03/24/2023 Telephone [facility] [address] [place] [address] Provider, No Attributed, RESOURCE [address] Social History Tobacco Use Types Packs/Day Years Used Date Smoking Tobacco: Never Smokeless Tobacco: Never Sex and Gender Information Value Date Recorded Sex Assigned at Female 04/15/2022 9:22 PM CASH POSTING SPECIALIST Gender Identity Female 04/15/2022 9:22 PM CASH POSTING SPECIALIST Sexual Orientation Bisexual 04/15/2022 9: 22 PM CASH POSTING SPECIALIST documented as of this encounter Nursing Notes * Isa Lee - 03/24/2023 10:08 AM CST External referral received from Dr. Zoltan Young, [facility], [place], [place] for obesity, hypoglycemia. Referral entered as order and sent to scanning. Electronically signed by Isa Lee 10:09 AM CASH POSTING SPECIALIST 03/24/2023 POSTING SPECIALIST documented in this encounter Plan of Treatment Upcoming Encounters Date Type Department Care Team ([facility] Contact Info) Description 07/23/2023 11:00 AM CDT Office Visit [facility] EATING DISORDER WEIGHT LOSS MANAGEMENT [address] [place] [address] [address] [place], [place] [address] Kolby Parker MD [address] [facility] [place], [place] [address] Discharge Disposition: Home, Self Care documented as of this encounter Visit Diagnoses Not on filedocumented in this encounter Care Teams Human Resources Services Specialist Relationship Specialty Start Date End Date Provider, No Attributed, RESOURCE [address] PCP - Attributed Provider 04/29/22 PcpAnu MD You have no PCP on file PCP - General 05/05/22 Shayy, Dietitian Clinic [place]IE [place] 06/23/22 documented as of this encounter
--- OUTSIDE RECORDS SUMMARY | 2023-06-15 10:15 | XMS_ITS | Encounter Summary ---
Author Name Unknown Organization [facility] Address [address] [place] [address] Care Team Providers Care Sales Engagement Manager Name Role Phone Provider, No Attributed RESOURCE Unavailable Unavailable Pcp, No MD Primary Care Provider Unavailmendy Lucas, Dietitian Clinic Unavailable Unavaila ble Encounter Details Date Type Department Care Team (Late Contact Info) Description 05/13/2023 8:35 AM AUTO LOCATOR Orders Only [facility] [address] [place] [phone] Reactive hypoglycemia; Screening for thyroid disorder Discharge Disposition: Home, Self Care Social History Tobacco Use Types Packs/Day Years Used Date Smoking Tobacco: Never Smokeless Tobacco: Never Sex and Gender Information Value Date Recorded Sex Assigned at Female 04/15/2022 9:22 PM AUTO LOCATOR Gender Identity Female 04/15/2022 9:22 PM AUTO LOCATOR Sexual Orientation Bisexual 04/15/2022 9: 22 PM AUTO LOCATOR documented as of this encounter Plan of Treatment Upcoming Encounters Date Type Department Care Team (Late Contact Info) Description 07/23/2023 11:00 AM CDT Office Visit [facility] EATING DISORDER WEIGHT LOSS MANAGEMENT [address] [place] [address] [place] [phone] Kolby Parker MD [address] [place], [place] [address] [address] Discharge Disposition: Home, Self Care documented as of this encounter Procedures Procedure Name Priority Date/Time Associated Diagnosis Comments TISSUE TRANSGLUTAMINASE IGA ANTIBODY Routine 05/13/2023 8:50 AM AUTO LOCATOR Reactive hypoglycemia TSH REFLEX Routine 05/13/2023 8:50 AM AUTO LOCATOR Screening for thyroid disorder TISSUE TRANSGLUTAMINASE IGG ANTIBODY Routine 05/13/2023 8:50 AM AUTO LOCATOR Reactive hypoglycemia TISSUE TRANSGLUTAMINASE IGA ANTIBODY Routine 05/13/2023 8:50 AM AUTO LOCATOR Reactive hypoglycemia GLYCATED HEMOGLOBIN Routine 05/13/2023 8 :50 AM AUTO LOCATOR Reactive hypoglycemia CORTISOL TOTAL, A.M. Routine 05/13/2023 8:50 AM AUTO LOCATOR Reactive hypoglycemia ENDOMYSIAL IGA AB Routine 05/13/2023 8:5 0 AM AUTO LOCATOR Reactive hypoglycemia C-PEPTIDE Routine 05/13/2023 8:50 AM AUTO LOCATOR Reactive hypoglycemia GLUCOSE Routine 05/13/2023 8:50 AM AUTO LOCATOR Reactive hypoglycemia documented in this encounter Results * TISSUE TRANSGLUTAMINASE IGG ANTIBODY (05/13/2023 8:50 AM AUTO LOCATOR) Pathologist [facility] Tissue Transglutaminase IgG Interpretation Negative Negative 05/14/2023 12:37 PM AUTO LOCATOR [facility] Tissue Transglutaminase IgG Ab <0.8 <=14.9 U/mL 05/14/2023 12:37 PM AUTO LOCATOR [facility] Blood BLOOD SPECIMEN / Unknown Venipuncture / Unknown 05/13/2023 8:50 AM AUTO LOCATOR 05/13/2023 8:52 AM AUTO LOCATOR Veronica Dove PRESCHOOL EDUCATION DIRECTOR-NITROCELLULOSE MAKER LAB BLOOD [facility] [address] [facility], [place] [id number] * TISSUE TRANSGLUTAMINASE IGA ANTIBODY (05/13/2023 8:50 AM AUTO LOCATOR) Tissue Transglutaminase IgA Interpretation Negative Negative 05/14/2023 12:37 PM AUTO LOCATOR [facility] Tissue Transglutaminase IgA Ab <0.5 <=14.9 U/mL 05/14/2023 12:37 PM AUTO LOCATOR [facility] [place] [place] Blood BLOOD SPECIMEN / Unknown Venipuncture / Unknown 05/13/2023 8:50 AM AUTO LOCATOR 05/13/2023 8:52 AM AUTO LOCATOR Veronica Dove PRESCHOOL EDUCATION DIRECTOR-[facility] LAB BLOOD [facility] [address] [facility] [place] [address] * GLUCOSE (05/13/2023 8:50 AM AUTO LOCATOR) Glucose 71 70 - 99 mg/dL 05/13/2023 11:[address] [facility] Blood BLOOD SPECIMEN / Unknown Venipuncture / Unknown 05/13/2023 8:50 AM AUTO LOCATOR 05/13/2023 8:52 AM AUTO LOCATOR Veronica Dove PRESCHOOL EDUCATION DIRECTOR-[facility] LAB BLOOD Performing Organization Address City/[facility]/ZIP Co de Phone Number [address] [address] * TSH REFLEX (05/13/2023 8:50 AM AUTO LOCATOR) TSH 1.53 0.35 - 4.94 uIU/mL 05/13/2023 11:[address] [facility] Blood BLOOD SPECIMEN / Unknown Venipuncture / Unknown 05/13/2023 8:50 AM AUTO LOCATOR 05/13/2023 8:52 AM AUTO LOCATOR Veronica Dove PRESCHOOL EDUCATION DIRECTOR-[facility] LAB BLOOD [address] [address] * (ABNORMAL) C-PEPTIDE (05/13/2023 8:50 AM AUTO LOCATOR) C Peptide 7.4(H) 1.1 - 4.4 ng/mL 05/14/2023 10:04 AM [facility] Blood BLOOD SPECIMEN / Unknown Venipuncture / Unknown 05/13/2023 8:50 AM AUTO LOCATOR 05/13/2023 8:52 AM AUTO LOCATOR Veronica Dove PRESCHOOL EDUCATION [facility] [address] [facility] [place] [address] * GLYCATED HEMOGLOBIN (05/13/2023 8:50 AM [facility]) [facility] Hgb A1C 4.4 <5.7 % 05/13/2023 11:42 AM [facility] Estimated Average Glucose 80 mg/dL 05/13/2023 11:42 AM [facility] Blood BLOOD SPECIMEN / Unknown Venipuncture / Unknown 05/13/2023 8:50 AM AUTO LOCATOR 05/13/2023 8:52 AM AUTO LOCATOR Narrative [facility] - 05/13/2023 11:42 AM [facility] ADA Interpretive Guidelines When Using HbA1c for Diagnosis Prediabetes 5.7 - 6.4% Diabetes >= 6.5% When Using HbA1c for Monitoring a Person Known to Have Diabetes, < 7% is a reasonable goal for many non adults, < 7.5% should be considered in children and adolescents (<19 years) with type 1 diabetes. ADA Standards of Medical Care in Diabetes - 2019 Veronica [facility]rell [facility] [address] [address] * ENDOMYSIAL IGA ANTIBODY SEMI-QUANTITATIVE (05/13/2023 8:50 AM [facility]) Pathologist [facility] Endomysial IgA Negative Negative 05/18/2023 1:11 PM [facility] Blood BLOOD SPECIMEN / Unknown Venipuncture / Unknown 05/13/2023 8:50 AM AUTO LOCATOR 05/13/2023 8:52 AM AUTO LOCATOR Veronica Dove DAJUAN-[facility] LAB BLOOD [facility] [address] [facility] [place] [address] * CORTISOL TOTAL, A.M. (05/13/2023 8:50 AM AUTO LOCATOR) Cortisol AM 9.6 3.7 - 19.4 ug/dL 05/13/2023 12:[address] [facility] Blood BLOOD SPECIMEN / Unknown Venipuncture / Unknown 05/13/2023 8:50 AM AUTO LOCATOR 05/13/2023 8:52 AM AUTO LOCATOR Veronica Dove PRESCHOOL EDUCATION DIRECTOR-[facility] LAB BLOOD [address] [address] documented in this encounter Visit Diagnoses Diagnosis Reactive hypoglycemia Hypoglycemia, unspecified Screening for thyroid disorder documented in this encounter Care Teams Sales Engagement Manager Relationship Specialty Start Date End Date Provider, No Attributed, RESOURCE [address] PCP - Attributed Provider 04/29/22 PcpAnu MD You have no PCP on file PCP - General 05/05/22 [place], Dietitian Clinic [place], [place] 06/23/22 documented as of this encounter
--- OUTSIDE RECORDS SUMMARY | 2023-06-15 10:15 | XMS_ITS | Encounter Summary ---
Author Name Unknown Organization [facility] Address [address] [place] [address] Care Team Providers Care Fertilizer Loader Name Role Phone Provider, No Attributed RESOURCE Unavailable Unavailable Pcp, No MD Primary Care Provider Unavailabl radha Lucas, Dietitian Clinic Unavailable Unavaila ble Encounter Details Date Type Department Care Team (Late st Contact Info) Description 06/09/2023 Telephone [facility] [address] [place] [address] Veronica Dove, [facility] [address] [place] [address] Social History Tobacco Use Types Packs/Day Years Used Date Smoking Tobacco: Never Smokeless Tobacco: Never Sex and Gender Information Value Date Recorded Sex Assigned at Female 04/15/2022 9:22 PM REAL ESTATE OFFICE MANAGER Gender Identity Female 04/15/2022 9:22 PM REAL ESTATE OFFICE MANAGER Sexual Orientation Bisexual 04/15/2022 9: 22 PM REAL ESTATE OFFICE MANAGER documented as of this encounter Nursing Notes * Lucien Frazier NA - 06/11/2023 9:29 AM CST No paperwork has been received from [facility] [place] ESTATE OFFICE MANAGER * Araceli Rodrigues - 06/10/2023 3:17 PM CST Rosy from [facility] called. She stated that formulary exception paperwork was sent from [employer] to the 1260 fax number in regards to patient's sensors. She stated that this would need to be sent back to them as soon as possible so they can process it and get patient her sensors. Please advise. Electronically signed by Araceli Rodrigues 3:20 PM REAL ESTATE OFFICE MANAGER 06/10/2023 ESTATE OFFICE MANAGER * Veronica Dove APRN-CNP - 06/09/2023 11:59 AM CST We had already discussed this could happen at her apt in May 2023. She will have to pay for out of pocket or check with [employer]. No further action required. ESTATE OFFICE MANAGER * Araceli Rodrigues - 06/09/2023 10:42 AM CST Elizabeth from [facility] called regarding patient's dexcom g7 sensors. She stated that patient had medicare part b and during their review, they realized that patient does not meetrequirements to be covered for this. She stated that patient would need to have diabetes and be on daily insulin to qualify. She also stated that she has contacted patient regarding this. Please advise. Electronically signed by Araceli Rodrigues 10:46 AM REAL ESTATE OFFICE MANAGER 06/09/2023 ESTATE OFFICE MANAGER documented in this encounter Plan of Treatment Upcoming Encounters Date Type Department Care Team (Late st Contact Info) Description 07/23/2023 11:00 AM CDT Office Visit [facility] EATING DISORDER WEIGHT LOSS MANAGEMENT [address] [place] [address] [place] [phone] Kolby Parker MD [address] [place] [address] [place] [address] Discharge Disposition: Home, Self Care documented as of this encounter Visit Diagnoses Not on filedocumented in this encounter Care Teams Fertilizer Loader Relationship Specialty Start Date End Date Provider, No Attributed, RESOURCE [address] PCP - Attributed Provider 04/29/22 Pcp, No, You have no PCP on file PCP - General 05/05/22 [place], Dietitian Clinic [place] 06/23/22 documented as of this encounter
--- OUTSIDE RECORDS SUMMARY | 2023-06-15 10:15 | XMS_ITS | Encounter Summary ---
Author Name Unknown Organization [facility] Address [address] [place] [address] Care Team Providers Care Director Medical Writing Name Role Phone Provider, No Attributed RESOURCE Unavailable Unavailable Pcp, No MD Primary Care Provider Unavailmendy Lucas, Dietitian Clinic Unavailable Unavaila ble Reason for Referral * Comprehensive Primary Care Plus (Routine) - New Request Specialty Diagnoses / Procedures Referred By Frandy acevedo Referred To Contact Endocrinology Diagnoses Obesity Hypoglycemia Zoltan Young MD [address] [place] [address] [facility] [address] [place] [address] Referral ID Status Reason Start Date Expiration Date V isits Requested Visits Authorized [id number] New Request 03/24/2023 1 1 Scheduling Instructions This is an electronic referral. Question Answer Priority Routine/Next Available CONSULTATION PLAN Evaluate and Treat INSPECTOR Encounter Details Date Type Department Care Team (Late st Contact Info) Description 03/24/2023 Orders Only [facility] [address] [place] [address] Isa Lee [address] [place] [address] Obesity (Primary Dx); Hypoglycemia Social History Tobacco Use Types Packs/Day Years Used Date Smoking Tobacco: Never Smokeless Tobacco: Never Sex and Gender Information Value Date Recorded Sex Assigned at Female 04/15/2022 9:22 PM DIE INSPECTOR Gender Identity Female 04/15/2022 9:22 PM DIE INSPECTOR Sexual Orientation Bisexual 04/15/2022 9: 22 PM DIE INSPECTOR documented as of this encounter Plan of Treatment Upcoming Encounters Date Type Department Care Team (Late st Contact Info) Description 07/23/2023 11:00 AM CDT Office Visit [facility] EATING DISORDER WEIGHT LOSS MANAGEMENT [address] [place] [address] [place] [phone] Kolby Parker MD [address] [place] [address] Discharge Disposition: Home, Self Care Scheduled Referrals Name Type Priority Associated Diagnoses Orde r Schedule CLINIC REFERRAL ENDOCRINOLOGY ONE CHART Referral Routine Obesity Hypoglycemia Ordered: 03/24/2023 documented as of this encounter Visit Diagnoses Diagnosis Obesity- Primary Obesity, unspecified Hypoglycemia Hypoglycemia, unspecified documented in this encounter Care Teams Director Medical Writing Relationship Specialty Start Date End Date Provider, No Attributed, RESOURCE [address] PCP - Attributed Provider 04/29/22 PcpAnu MD You have no PCP on file PCP - General 05/05/22 [place], Dietitian Clinic [place], [place] 06/23/22 documented as of this encounter
--- OUTSIDE RECORDS SUMMARY | 2023-06-15 10:15 | XMS_ITS | Clinical Summary ---
Author Name Unknown Organization [employer] Address [address] [place] [address] Care Team Providers Care Velvet Steamer Name Role Phone Provider, No Attributed RESOURCE Unavailable Unavailable Pcp, No MD Primary Care Provider Unavailmendy Lucas, Dietitian Clinic Unavailable Unavaila ble Allergies Active Allergy Reactions Criticality Noted Date Comments Adhesives Unknown/Not Verified 03/13/2020 tegaderm makes raw skin. ?? States tape is ok Gluten Meal Other (Specify in Comments) 08/11/2017 Other reaction(s): GI intolerance Pollen Extract-Tree Extract Unknown/Not Verified,Other (Specify in Comments) 09/10/2016 Nasal congestion Medications Medication Sig Dispensed Refills Start Date End Date Status oxyCODONE (OXY-IR) 5 mg tablet (immediate release) 5 mg 4 times a day 0 04/09/2022 Active albuterol (VENTOLIN BRAND) 108 mcg (90 base) act HFA inhaler Inhale 2 puffs orally Every 4 hours as needed 0 03/28/2022 Active furosemide (LASIX) 20 mg tablet Take 20 mg by mouth 1 time a day as needed 0 03/29/2022 Active ibuprofen (MOTRIN) 800 mg tablet Take 800 mg by mouth 3 times a day as needed 0 04/09/2022 Active MOVANTIK 25 MG tablet Take 25 mg by mouth 1 time a day in the morning 0 04/07/2022 Active rizatriptan (MAXALT) 10 mg tablet Take 10 mg by mouth as needed 0 Active spironolactone (ALDACTONE) 100 mg tablet Take 100 mg by mouth 1 time per day 0 12/27/2021 Active buPROPion (WELLBUTRIN SR) 150 mg SR (12 hr) tablet Take 150 mg by mouth 2 times a day 0 09/15/2022 Active celecoxib (CELEBREX) 200 mg capsule TAKE 1 CAPSULE(200 MG) BY MOUTH TWICE DAILY 0 10/05/2022 Active polyethylene glycol (MIRALAX) 17 GM/SCOOP powder Take by mouth 0 07/19/2022 Active ondansetron (ZOFRAN ODT) 4 mg dispersible tablet Take 4 mg by mouth 0 07/19/2022 Active Lancets 30G MISCIndications:Typ e 2 diabetes mellitus without complication, without long-term current use of insulin (HCC) Use to check blood glucose three times daily and as needed. 100 each 4 02/09/2023 Active Blood Glucose Monitoring Suppl (RegeneMedIO IQ SYSTEM) w/Device KITIndications:Type 2 diabetes mellitus without complication, without long-term current use of insulin (HCC) 1 Kit 1 time per day 1 Kit 0 02/09/2023 Active semaglutide (OZEMPIC, 1 MG/DOSE,) 4 mg/3 mL subcutaneous injection solution (pen)Indications:Re active hypoglycemia Inject 1 mg under the skin 1 time a week 9 mL 4 05/18/2023 05/22/2024 Active Dexcom G7 SensorIndications:R eactive hypoglycemia Apply new sensor to be used every 10 days with Dexcom G7. 9 each 3 06/07/2023 Active semaglutide (OZEMPIC, 1 MG/DOSE,) 4 mg/3 mL subcutaneous injection solution (pen)Indications:Re active hypoglycemia Inject 1 mg under the skin 1 time a week 9 mL 4 05/13/2023 05/18/2023 Discontinued (Re-order/Re -entry) Dexcom G7 SensorIndications:R eactive hypoglycemia Apply new sensor to be used every 10 days with Dexcom G7. 9 each 3 05/13/2023 06/07/2023 Discontinued (Re-order/Re -entry) Active Problems Problem Noted Date Diagnosed Date Pain in both hands 05/08/2022 Bilateral hand numbness 05/08/2022 Encounters Date Type Department Care Team Description 06/14/2023 Orders Only [facility] RADIOLOGY OUTSIDE READS [address] [facility], [place] [id number] Carine Irvin RT(R) 06/09/2023 Telephone [facility] [address] [facility] [place] [address] Veronica Dove APRN-MEMBER SERVICES COORDINATOR 06/02/2023 4:00 PM PIECE [employer] Ancillary Procedure [facility] [address] [place] [address] Encounter for screening mammogram for breast cancer Discharge Disposition: Home, Self Care 06/02/2023 Telephone [facility] [address] [place] [address] Veronica Dove APRN-MEMBER SERVICES COORDINATOR 05/14/2023 Telephone [facility] EATING DISORDER WEIGHT LOSS MANAGEMENT [address] [place] [address] [place] [address] Provider, No Attributed, RESOURCE 05/13/2023 10:30 AM PIECE MARKER [employer] Office Visit [facility] NUTRITION [facility] [address] [place] [address] Nica Bearden, RD, LRD Obesity (BMI 30-39.9) (Primary Dx); Reactive hypoglycemia Discharge Disposition: Home, Self Care 05/13/2023 8:35 AM PIECE MARKER SMALL ARMS Orders Only [facility] [address] [place] [phone] Reactive hypoglycemia; Screening for thyroid disorder Discharge Disposition: Home, Self Care 05/13/2023 7:15 AM PIECE MARKER [employer] Office Visit [facility] [address] [place] [address] Veronica Dove, BINDERY LEADPERSON-MEMBER SERVICES COORDINATOR Reactive hypoglycemia (Primary Dx); Screening for thyroid disorder; Obesity (BMI 30-39.9) Discharge Disposition: Home, Self Care 04/09/2023 Orders Only [facility] RADIOLOG[facility] [address] [place] [address] Nora Camacho Encounter for screening mammogram for breast cancer (Primary Dx) 03/24/2023 Telephone [facility] [address] [place] [address] Provider, No Attributed, RESOURCE 03/24/2023 Orders Only [facility] [address] [place] [address] LawsonkenIsa Obesity (Primary Dx); Hypoglycemia from Last 3 Months Family History Medical History Relation Comments Breast Cancer Neg Hx Social History Tobacco Use Types Packs/Day Years Used Date Smoking Tobacco: Never Smokeless Tobacco: Never Tobacco Cessation:Counseling Given: Not Answered Sex and Gender Information Value Date Recorded Sex Assigned at Female 04/15/2022 9:22 PM PIECE MARKER [employer] ARMS Gender Identity Female 04/15/2022 9:22 PM PIECE MARKER [employer] ARMS Sexual Orientation Bisexual 04/15/2022 9: 22 PM PIECE MARKER [employer] ARMS Last Filed Vital Signs Vital Sign Reading Time Taken Comments Blood Pressure 126/72 05/13/2023 7:28 AM PIECE MARKER [employer] ARMS Pulse 76 05/13/2023 7:28 AM PIECE MARKER [employer] ARMS Temperature 36.7 ??C (98 ??F) 11/11/2022 6:38 PM CDT Respiratory Rate 14 02/09/2023 12:00 AM CDT Oxygen Saturation 96% 02/09/2023 12:00 AM CDT Inhaled Oxygen Concentration - - Weight 96.6 kg (213 lb) 05/13/2023 7:28 AM PIECE MARKER [employer] ARMS Height 160 cm (5' 3) 02/08/2023 7:22 PM CDT Body Mass Index 37.73 02/08/2023 7:22 PM CDT Plan of Treatment Upcoming Encounters Date Type Department Care Team (Late st Contact Info) Description 07/23/2023 11:00 AM CDT Office Visit [facility] EATING DISORDER WEIGHT LOSS MANAGEMENT [address] [place] [address] [place] [phone] Kolby Parker MD [address] [place], [place] [address] [address] Discharge Disposition: Home, Self Care Health Maintenance Due Date Last Done Comments Hepatitis C Screening 1980 uACR (microalbumin) 1980 Pneumococcal Vaccine (0-5yr; and At-risk 6-64 yr) (1 of 2 - PCV) 09/27/1985 Diabetic Foot Exam 09/27/1989 Ophthalmology Exam 09/27/1989 HIV One Time Screening Ages 15-65 09/27/1994 Hepatitis B Vaccine (1 of 3 - 19+ 3-dose series) 09/27/1998 Lipid Screening 09/27/2000 Pap Smear 09/27/2000 TDAP/TD (1 - Tdap) 09/27/2000 HPV 27-45yr Vaccine (1 - 3-D OSE SERIES) 09/27/2006 Covid-19 Vaccine ( - 2022-24 season) 2023 Influenza Vaccine (#1) 2023 8, 05/18/2006, 05/18/2006 Hemoglobin A1C Every 6 Months 11/11/2023 05/13/2023 Mammogram 06/02/2024 06/02/2023 Procedures Procedure Name Priority Date/Time Associated Diagnosis Comments MAMMOGRAM SINAN DIGITAL SCREENING STEWART Routine 06/02/2023 4:13 PM PIECE MARKER [employer] ARMS Encounter for screening mammogram for breast cancer TISSUE TRANSGLUTAMINASE IGG ANTIBODY Routine 05/13/2023 8:50 AM PIECE MARKER [employer] ARMS Reactive hypoglycemia TISSUE TRANSGLUTAMINASE IGA ANTIBODY Routine 05/13/2023 8:50 AM PIECE MARKER [employer] ARMS Reactive hypoglycemia GLUCOSE Routine 05/13/2023 8:50 AM PIECE MARKER [employer]MS Reactive hypoglycemia TSH REFLEX Routine 05/13/2023 8:50 AM PIECE MARKER [employer] ARMS Screening for thyroid disorder C-PEPTIDE Routine 05/13/2023 8:50 AM PIECE MARKER [employer]MS Reactive hypoglycemia GLYCATED HEMOGLOBIN Routine 05/13/2023 8 :50 AM PIECE MARKER [employer] ARMS Reactive hypoglycemia ENDOMYSIAL IGA AB Routine 05/13/2023 8:5 0 AM PIECE MARKER [employer] ARMS Reactive hypoglycemia TISSUE TRANSGLUTAMINASE IGA ANTIBODY Routine 05/13/2023 8:50 AM PIECE MARKER [employer] ARMS Reactive hypoglycemia CORTISOL TOTAL, A.M. Routine 05/13/2023 8:50 AM PIECE MARKER [employer] ARMS Reactive hypoglycemia from Last 3 Months Results * MAMMOGRAM SINAN DIGITAL SCREENING STEWART (06/02/2023 4:13 PM PIECE MARKER SMALL ARMS) Anatomical Region Laterality Modality Breast Bilateral Mammography 06/14/2023 1:25 PM PIECE MARKER SMALL ARMS Narrative 06/14/2023 1:27 PM PIECE MARKER SMALL ARMS Patient Name: ?? BETSEY STOVER Date of : ??1980 Procedure: MAMMOGRAM SINAN DIGITAL SCREENING STEWART Date of Service: 06/02/2023 EXAM: MAMMOGRAM SINAN DIGITAL SCREENING STEWART INDICATION: ICD-10 Z12.31 Encounter for screening mammogram for breast cancer COMPARISON(S): Comparison is made to prior mammograms dated 07/10/2020 and 08/19/2021. TECHNIQUE: Bilateral CC and MLO digital tomosynthesis was done in addition to routine imaging. ??Interpretation is made with the benefit of Computer Aided Detection. ?? DENSITY: The breasts are heterogeneously dense, which may obscure small masses. FINDINGS: No suspicious masses, grouped calcifications or architectural distortions are identified in either breast. ??There has been no significant interval change. IMPRESSION: No mammographic evidence of malignancy. MANAGEMENT: Continued screening mammography as indicated by ACR recommendations. ACR BI-RADS CATEGORY: 1 - Negative A letter will be sent to the patient indicating her mammography results in lay terminology. Finalized by: Dayo Elias MD on 06/14/2023 1:27 PM PIECE MARKER SMALL ARMS Patient/Procedure Information: [facility] MRN/COLETTE: [id number] Order Number: [id number] Accession Number: [id number] Ordering Provider: ISIS YOUNG Authorizing Provider: ISIS YOUNG Isis Young MD MAMMOGRAPHY * TSH REFLEX (05/13/2023 8:50 AM PIECE MARKER [employer] ARMS) TSH 1.53 0.35 - 4.94 uIU/mL 05/13/2023 11:57 AM PIECE MARKER SMALL ARMS [facility] Blood BLOOD SPECIMEN / Unknown Venipuncture / Unknown 05/13/2023 8:50 AM PIECE MARKER [employer] ARMS 05/13/2023 8:52 AM PIECE MARKER SMALL ARMS Veronica Dove BINDERY LEADPERSON-MEMBER SERVICES COORDINATOR LAB BLOOD [address] [address] * TISSUE TRANSGLUTAMINASE IGG ANTIBODY (05/13/2023 8:50 AM PIECE MARKER SMALL ARMS) Tissue Transglutaminase IgG Interpretation Negative Negative 05/14/2023 12:37 PM PIECE MARKER SMALL ARMS [facility] [place] Tissue Transglutaminase IgG Ab <0.8 <=14.9 U/mL 05/14/2023 12:37 PM PIECE MARKER SMALL ARMS [facility] [place] Blood BLOOD SPECIMEN / Unknown Venipuncture / Unknown 05/13/2023 8:50 AM PIECE MARKER [employer] ARMS 05/13/2023 8:52 AM PIECE MARKER SMALL ARMS Veronica Dove [facility] [address] [place] [address] * TISSUE TRANSGLUTAMINASE IGA ANTIBODY (05/13/2023 8:50 AM PIECE MARKER SMALL ARMS) Pathologist [facility] Tissue Transglutaminase IgA Interpretation Negative Negative 05/14/2023 12:37 PM PIECE MARKER SMALL ARMS [facility] [place] Tissue Transglutaminase IgA Ab <0.5 <=14.9 U/mL 05/14/2023 12:37 PM [facility] [place] Blood BLOOD SPECIMEN / Unknown Venipuncture / Unknown 05/13/2023 8:50 AM PIECE MARKER [employer] ARMS 05/13/2023 8:52 AM PIECE MARKER SMALL ARMS Veronica Dove [facility] [address] [place] [address] * GLYCATED HEMOGLOBIN (05/13/2023 8:50 AM PIECE MARKER SMALL ARMS) Pathologist [facility] Hgb A1C 4.4 <5.7 % 05/13/2023 11:42 AM PIECE MARKER SMALL ARMS [facility] Estimated Average Glucose 80 mg/dL 05/13/2023 11:42 AM [facility] Blood BLOOD SPECIMEN / Unknown Venipuncture / Unknown 05/13/2023 8:50 AM PIECE MARKER [employer] ARMS 05/13/2023 8:52 AM PIECE MARKER SMALL ARMS Narrative [facility] - 05/13/2023 11:42 AM PIECE MARKER SMALL ARMS ADA Interpretive Guidelines When Using HbA1c for Diagnosis Prediabetes 5.7 - 6.4% Diabetes >= 6.5% When Using HbA1c for Monitoring a Person Known to Have Diabetes, < 7% is a reasonable goal for many non adults, < 7.5% should be considered in children and adolescents (<19 years) with type 1 diabetes. ADA Standards of Medical Care in Diabetes - 2019 Veronica Dove BINDERY LEADPERSON-MEMBER SERVICES COORDINATOR LAB BLOOD Performing Organization Address City/[facility]/ZIP Co de Phone Number [address] [address] * CORTISOL TOTAL, A.M. (05/13/2023 8:50 AM PIECE MARKER SMALL ARMS) Cortisol AM 9.6 3.7 - 19.4 ug/dL 05/13/2023 12:26 PM PIECE MARKER SMALL ARMS [facility] Blood BLOOD SPECIMEN / Unknown Venipuncture / Unknown 05/13/2023 8:50 AM PIECE [employer]MS 05/13/2023 8:52 AM PIECE MARKER SMALL ARMS Veronica Dove BINDERY LEADPERSON-MEMBER SERVICES COORDINATOR LAB BLOOD Performing Organization Address [facility]/ZIP Co de Phone Number [address] [address] * ENDOMYSIAL IGA ANTIBODY SEMI-QUANTITATIVE (05/13/2023 8:50 AM PIECE MARKER SMALL ARMS) Endomysial IgA Negative Negative 05/18/2023 1:11 PM PIECE MARKER SMALL ARMS [facility] [place] Blood BLOOD SPECIMEN / Unknown Venipuncture / Unknown 05/13/2023 8:50 AM PIECE MARKER [employer] ARMS 05/13/2023 8:52 AM PIECE MARKER SMALL ARMS Veronica Dove BINDERY LEADPERSON-MEMBER SERVICES COORDINATOR LAB BLOOD [facility] [place] [address] [place] [address] * (ABNORMAL) C-PEPTIDE (05/13/2023 8:50 AM PIECE MARKER SMALL ARMS) C Peptide 7.4(H) 1.1 - 4.4 ng/mL 05/14/2023 10:04 AM PIECE MARKER SMALL ARMS [facility] Blood BLOOD SPECIMEN / Unknown Venipuncture / Unknown 05/13/2023 8:50 AM PIECE MARKER [employer] ARMS 05/13/2023 8:52 AM PIECE MARKER SMALL ARMS Veronica Dove BINDERY LEADPERSON-MEMBER SERVICES COORDINATOR LAB BLOOD [facility] [address] [facility] [place] [address] * GLUCOSE (05/13/2023 8:50 AM PIECE MARKER SMALL ARMS) Glucose 71 70 - 99 mg/dL 05/13/2023 11:57 AM PIECE MARKER SMALL ARMS [facility] Blood BLOOD SPECIMEN / Unknown Venipuncture / Unknown 05/13/2023 8:50 AM PIECE MARKER [employer] ARMS 05/13/2023 8:52 AM PIECE MARKER SMALL ARMS Veronica Dove BINDERY LEADPERSON-MEMBER SERVICES COORDINATOR LAB BLOOD [address] [address] from Last 3 Months Care Teams Velvet Steamer Relationship Specialty Start Date End Date Provider, No Attributed, RESOURCE [address] PCP - Attributed Provider 04/29/22 Pcp, Anu, You have no PCP on file PCP - General 05/05/22 [place], Dietitian [facility] [place], [place] 06/23/22
--- OUTSIDE RECORDS SUMMARY | 2023-06-15 10:15 | XMS_ITS | Encounter Summary ---
Author Name Unknown Organization [employer] Address [address] [place] [address] Care Team Providers Care Conference Interpreter Name Role Phone Provider, No Attributed RESOURCE Unavailable Unavailable Pcp, No MD Primary Care Provider Unavailmendy Lucas, Dietitian Clinic Unavailable Unavaila ble Encounter Details Date Type Department Care Team (Late Contact Info) Description 06/14/[address] [facility] RADIOLOGY OUTSIDE READS [address] [place] [address] Carine Irvin RT(R) [address] [place] [id number] Social History Tobacco Use Types Packs/Day Years Used Date Smoking Tobacco: Never Smokeless Tobacco: Never Sex and Gender Information Value Date Recorded Sex Assigned at Female 04/15/2022 9:22 PM BOTTOM TURNING LATHE TURNER Gender Identity Female 04/15/2022 9:22 PM BOTTOM TURNING LATHE TURNER Sexual Orientation Bisexual 04/15/2022 9: 22 PM BOTTOM TURNING LATHE TURNER documented as of this encounter Plan of Treatment Upcoming Encounters Date Type Department Care Team (Late Contact Info) Description 07/23/2023 11:00 AM CDT Office Visit [facility] EATING DISORDER WEIGHT LOSS MANAGEMENT [address] [place] [address] [place] [phone] Kolby Parker MD [address] [place] [address] Discharge Disposition: Home, Self Care documented as of this encounter Results * EXTERNAL MAMMO SCREENING BILATERAL (08/19/2021 1:00 PM CDT) Narrative [employer], User - 06/14/2023 12:59 PM BOTTOM TURNING LATHE TURNER Outside study order used for film storage in PACS. No radiologist review or dictation. Provider Unlisted MAMMOGRAPHY * EXTERNAL MAMMO SCREENING BILATERAL (07/10/2020 1:00 PM BOTTOM TURNING LATHE TURNER) Narrative [employer], User - 06/14/2023 12:59 PM BOTTOM TURNING LATHE TURNER Outside study order used for film storage in PACS. No radiologist review or dictation. Provider Unlisted MAMMOGRAPHY documented in this encounter Visit Diagnoses Not on filedocumented in this encounter Care Teams Conference Interpreter Relationship Specialty Start Date End Date Provider, No Attributed, RESOURCE [address] PCP - Attributed Provider 04/29/22 PcpAnu MD You have no PCP on file PCP - General 05/05/22 [place], Dietitian Clinic [place]IE [place] 06/23/22 documented as of this encounter
--- OUTSIDE RECORDS SUMMARY | 2023-06-15 10:15 | XMS_ITS | Encounter Summary ---
Author Name Unknown Organization [facility] [employer] Address [address] [address] [place] [address] Care Team Providers Care Target Setter Name Role Phone Provider, No Attributed RESOURCE Unavailable Unavailable Pcp, No MD Primary Care Provider Dante [facility] Dietitian [facility] Unavailable Unavaila ble Encounter Details Date Type Department Care Team (Late Contact Info) Description 05/14/2023 Telephone [facility] EATING DISORDER WEIGHT LOSS MANAGEMENT [address] [place] [address] [place] [address] Provider, No Attributed, RESOURCE [address] Social History Tobacco Use Types Packs/Day Years Used Date Smoking Tobacco: Never Smokeless Tobacco: Never Sex and Gender Information Value Date Recorded Sex Assigned at Female 04/15/2022 9:22 PM SUPERVISOR REACTOR FUELING Gender Identity Female 04/15/2022 9:22 PM SUPERVISOR REACTOR FUELING Sexual Orientation Bisexual 04/15/2022 9: 22 PM SUPERVISOR REACTOR FUELING documented as of this encounter Nursing Notes * Vanessa Sanderson - 05/14/2023 9:35 AM CST LM regarding referral to [facility] program RVISOR REACTOR FUELING documented in this encounter Plan of Treatment Upcoming Encounters Date Type Department Care Team (Late Contact Info) Description 07/23/2023 11:00 AM CDT Office Visit [facility] EATING DISORDER WEIGHT LOSS MANAGEMENT [address] [place] [address] [place] [phone] Kolby Parker MD [address] [place], [place] [address] [address] Discharge Disposition: Home, Self Care documented as of this encounter Visit Diagnoses Not on filedocumented in this encounter Care Teams Target Setter Relationship Specialty Start Date End Date Provider, No Attributed, RESOURCE [address] PCP - Attributed Provider 04/29/22 PcpAnu MD You have no PCP on file PCP - General 05/05/22 [place] [facility] [place]IE [place] 06/23/22 documented as of this encounter
--- OUTSIDE RECORDS SUMMARY | 2023-06-15 10:15 | XMS_ITS | Encounter Summary ---
Author Name Unknown Organization [place] [facility] Address [address] [place] [address] Care Team Providers Care Breaker Oiler Name Role Phone Provider, No Attributed RESOURCE Unavailable Unavailable Pcp, No MD Primary Care Provider [facility] [place], [facility] Unavailable Unavaila ble Encounter Details Date Type Department Care Team (Late st Contact Info) Description 05/13/2023 10:30 AM POULTRY PINNER Office Visit [facility] NUTRITION [facility] [address] [place] [address], LRD [address] [place] [address] Obesity (BMI 30-39.9) (Primary Dx); Reactive hypoglycemia Discharge Disposition: Home, Self Care Social History Tobacco Use Types Packs/Day Years Used Date Smoking Tobacco: Never Smokeless Tobacco: Never Sex and Gender Information Value Date Recorded Sex Assigned at Female 04/15/2022 9:22 PM POULTRY PINNER Gender Identity Female 04/15/2022 9:22 PM POULTRY PINNER Sexual Orientation Bisexual 04/15/2022 9: 22 PM POULTRY PINNER documented as of this encounter Progress Notes * Nica Bearden RD, LRD - 05/13/2023 10:30 AM CST Outpatient Nutrition Assessment Diagnosis: Obesity, reactive hypoglycemia. Referring Provider: Veronica Dove Encounter number: 1 Others present: patient Dietitian Visits Last Dietitian Visit: 07/13/22 Weight History Current Weight: Wt Readings from Last 3 Encounters: 05/13/23 96.6 kg (213 lb) 02/08/23 95.3 kg (210 lb) 11/11/22 94.3 kg (208 lb) Height: Ht Readings from Last 1 Encounters: 02/08/23 160 cm (63) BMI: 37.73 Nutritional Supplements Nutritional Supplements:did not discuss Comments/recommendations/drug-nutrient interactions: reduced appetite and weight loss with ozempic. Food Allergies: none reported Food Intolerances: gluten makes her feel more bloated. Learning Needs Assessment Special Considerations: none observed Learning Readiness: indicates learning readiness Cultural/christian/spiritual considerations: none What issues/concerns do you want to make sure we address today? Would like to lose weight, has referral for the AWLP. Not a milk drinker. Is a good cook. Is not a picky eater. Patient is on Ozempic and uses Dexcom G7. Lost 100# in the past with the keto diet. Highest weight 310# Tries to eat lower amounts of carbs. Does not add salt to foods. Eats 2 meals and 1-2 snacks a day. Blood sugar has also dropped in the middle of the night. Drinks Coke Zero with supper meal. Ozempic has reduced her appetite some. Ozempic dose was increased at endocrinology appt today. Eats 2 meals/day and 1-2 snacks/day. Breakfast: egg OR white or whole wheat bagel with salmon L may skip lunch S: largest meal: ribs 3 oz, BBQ zero sugar G Harrell sauce, vegetables, 1/2 cup mashed potatoes withpeeling. Hs snack: not usually Is being screened for celiac dx. Reports ab bloating after eating bread. No celiac in her family that is aware of. Has lots of diabetes on both sides of her family. 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 Physical Activity: Patient with chronic pain, has stimulator in her back. Has had previous back surgeries which limits her activity. Clinical Outcomes Latest Reference Range & Units 02/08/23 20:03 WBC 4.0 - 11.0 K/uL 6.0 RBC 3.80 - 5.30 M/uL 4.35 Hemoglobin 11.5 - 15.8 g/dL 13.2 Hematocrit 35.0 - 45.0 % 37.1 MCV 80.0 - 98.0 fL 85.3 MCH 25.5 - 34.0 pg 30.3 MCHC 31.5 - 36.5 g/dL 35.6 RDW-CV 11.5 - 15.5 % 11.9 RDW-SD 35.5 - 50.0 fl 36.2 Platelet Count 140 - 400 K/uL 243 MPV 8.5 - 12.0 fL 9.6 Nutrition Plan: Teaching initiated: Reviewed food groups which contain protein. Recommended to eat protein with each meal and snack. Recommended selecting whole grains. Discussed food groups which contain CHO. Recommended complex CHO and having protein with CHO foods. Recommend avoiding skipping meals. Specific recommendations given below and listed in AVS. Eat protein with each meal and snack. Avoid skipping meals. Eat more whole grains with fiber. Eat protein when you eat carbohydrates such as fruit or breads. Discussed ABN, patient signed form. Discussed how Medicare covers CKD/type 2 diabetes dx. Patient medical assistance may also belt picker cost of visit today. Patient could re-start medicare obesity program next month if she would like. Evaluation and Follow-up: Information was reviewed with patient. The patients comprehension was good and receptivity was good. The patient voiced understanding, asked appropriate questions, and needs more education. Patient to phone/email with any questions or concerns. Discussed goals with patient, and patient chose the following goal(s): Plan: Eat at least 3 meals/day. Materials Provided Business Card Contact Information Hypoglycemia handout. AVS Future Education Plan: Weight reduction Follow -up: 1-2 months. Visit Information Time spent with patient: 30 minutes Type of visit: [facility] Medicare other minutes On-site Physician: Dr. Adkins ABN obtained: yes dates 05/13/24 to 05/13/2024. Visit type: individual and revisit TRY PINNER documented in this encounter Miscellaneous Notes * Patient Instructions - Nica Bearden RD, TA - 05/13/2023 10:30 AM POULTRY PINNER Eat protein with each meal and snack. Avoid skipping meals. Eat more whole grains with fiber. Eat protein when you eat carbohydrates such as fruit or breads. TRY PINNER documented in this encounter Plan of Treatment Upcoming Encounters Date Type Department Care Team (Late st Contact Info) Description 07/23/2023 11:00 AM CDT Office Visit [facility] EATING DISORDER WEIGHT LOSS MANAGEMENT [address] [place] [address] DR [place]EN, [place] [address] Kolby Parker MD [address] [place], [place] [address], [place] [address] Discharge Disposition: Home, Self Care Scheduled Referrals Name Type Priority Associated Diagnoses Orde r Schedule CLINIC REFERRAL DIETITIAN ONE CHART Referral Routine Reactive hypoglycemia Ordered: 05/13/2023 documented as of this encounter Visit Diagnoses Diagnosis Obesity (BMI 30-39.9)- Primary Obesity, unspecified Reactive hypoglycemia Hypoglycemia, unspecified documented in this encounter Care Teams Breaker Oiler Relationship Specialty Start Date End Date Provider, No Attributed, RESOURCE [address] PCP - Attributed Provider 04/29/22 PcpAnu MD You have no PCP on file PCP - General 05/05/22 [facility] SHAYYCONNIE CAPONE 06/23/22 documented as of this encounter
--- OUTSIDE RECORDS SUMMARY | 2023-06-15 10:15 | XMS_ITS | Encounter Summary ---
Author Name Unknown Organization [place] [employer] Address [address] [place] [address] Care Team Providers Care Law Professor Name Role Phone Provider, No Attributed RESOURCE Unavailable Unavailable Pcp, No MD Primary Care Provider [facility] Unavailable Unavaila ble Encounter Details Date Type Department Care Team (Late st Contact Info) Description 01/27/2023 Telephone [facility] EATING DISORDER WEIGHT LOSS MANAGEMENT [address] [place] [address] [place] [address] Karine Flood MD [address], [place] [address] Social History Tobacco Use Types Packs/Day Years Used Date Smoking Tobacco: Never Smokeless Tobacco: Never Sex and Gender Information Value Date Recorded Sex Assigned at Female 04/15/2022 9:22 PM MINE SUPERVISOR Gender Identity Female 04/15/2022 9:22 PM MINE SUPERVISOR Sexual Orientation Bisexual 04/15/2022 9: 22 PM MINE SUPERVISOR documented as of this encounter Nursing Notes * Vanessa Sanderson - 01/27/2023 9:26 AM CDT Patient called to reschedule consult with Dr. Flood. Inventory Manager offered next available on 02/02 and patient stated she had that day off. At that point, grant writer was not able to hear patient talking on the phone. Patient scheduled for 02/02 and [facility] message sent to confirm appointment. documented in this encounter Plan of Treatment Upcoming Encounters Date Type Department Care Team (Late st Contact Info) Description 07/23/2023 11:00 AM CDT Office Visit [facility] EATING DISORDER WEIGHT LOSS MANAGEMENT [address] [place] [address] DR [place]UC[place], [place] [address] Kolby Parker MD [address] [place] [address] [place] [address] Discharge Disposition: Home, Self Care documented as of this encounter Visit Diagnoses Not on filedocumented in this encounter Care Teams Law Professor Relationship Specialty Start Date End Date Provider, No Attributed, RESOURCE [address] PCP - Attributed Provider 04/29/22 PcpAnu MD You have no PCP on file PCP - General 05/05/22 [place], Dietitian Clinic SHAYYCONNIE CAPONE 06/23/22 documented as of this encounter
--- OUTSIDE RECORDS SUMMARY | 2023-06-15 10:15 | XMS_ITS | Encounter Summary ---
Author Name Unknown Organization [place] [employer] Address [address] [place] [address] Care Team Providers Care Sewage Treatment Plant Operator Name Role Phone Provider, No Attributed RESOURCE Unavailable Unavailable Pcp, No MD Primary Care Provider Dante [facility] Dietitian Clinic Unavailable Unavaila ble Reason for Referral * [facility] Radiology (Routine) - Closed Specialty Diagnoses / Procedures Referred By Frandy acevedo Referred To Contact Diagnoses Encounter for screening mammogram for breast cancer Procedures MAMMOGRAM SINAN DIGITAL SCREENING STEWART Isis Young MD [address] [place] [address] Referral ID Status Reason Start Date Expiration Date Visits Re quested Visits Authorized [id number] Closed 04/09/2023 1 1 BERRY BOG SUPERVISOR Encounter Details Date Type Department Care Team (Late st Contact Info) Description 04/09/[address] [facility] RADIOLOGY [address] [place] [address] Nora Camacho [address] [place] [address] Encounter for screening mammogram for breast cancer (Primary Dx) Social History Tobacco Use Types Packs/Day Years Used Date Smoking Tobacco: Never Smokeless Tobacco: Never Sex and Gender Information Value Date Recorded Sex Assigned at Female 04/15/2022 9:22 PM CRANBERRY BOG SUPERVISOR Gender Identity Female 04/15/2022 9:22 PM CRANBERRY BOG SUPERVISOR Sexual Orientation Bisexual 04/15/2022 9: 22 PM CRANBERRY BOG SUPERVISOR documented as of this encounter Plan of Treatment Upcoming Encounters Date Type Department Care Team (Late st Contact Info) Description 07/23/2023 11:00 AM CDT Office Visit EATING DISORDER WEIGHT LOSS MANAGEMENT [address] [place] [address] [place], [place] [address] Kolby Parker MD [address] [place] [address] [place] [address] Discharge Disposition: Home, Self Care documented as of this encounter Results * MAMMOGRAM SINAN DIGITAL SCREENING STEWART (06/02/2023 4:13 PM CRANBERRY BOG SUPERVISOR) Anatomical Region Laterality Modality Breast Bilateral Mammography 06/14/2023 1:25 PM CRANBERRY BOG SUPERVISOR Narrative 06/14/2023 1:27 PM CRANBERRY BOG SUPERVISOR Patient Name: ?? BETSEY STOVER Date of [...] Dayo Elias MD on 06/14/2023 1:27 PM CRANBERRY BOG SUPERVISOR Patient/Procedure Information: [facility] RAIZA MRN/COLETTE: [id number] Order Number: [id number] Accession Number: [id number] Ordering Provider: ISIS YOUNG Authorizing Provider: ISIS YOUNG Isis Young MD MAMMOGRAPHY documented in this encounter Visit Diagnoses Diagnosis Encounter for screening mammogram for breast cancer- Primary Encounter for screening mammogram for breast cancer documented in this encounter Care Teams Sewage Treatment Plant Operator Relationship Specialty Start Date End Date Provider, No Attributed, RESOURCE [address] PCP - Attributed Provider 04/29/22 Pcp, Anu, You have no PCP on file PCP - General 05/05/22 [place], Dietitian Clinic CONNIE LUCAS 06/23/22 documented as of this encounter
--- OUTSIDE RECORDS SUMMARY | 2023-06-15 10:15 | XMS_ITS | Encounter Summary ---
Author Name Unknown Organization [place] [employer] [facility] Address [address] [place] [address] Care Team Providers Care Slip Tender Name Role Phone Provider, No Attributed RESOURCE Unavailable Unavailable Pcp, No MD Primary Care Provider [facility] radha Lucas, Dietitian Clinic Unavailable Unavaila ble Reason for Visit * [facility] Radiology (Routine) - Closed Specialty Diagnoses / Procedures Referred By Frandy acevedo Referred To Contact Diagnoses Encounter for screening mammogram for breast cancer Procedures MAMMOGRAM SINAN DIGITAL SCREENING STEWART Isis Young MD [address] [place] [address] Referral ID Status Reason Start Date Expiration Date Visits Re quested Visits Authorized [id number] Closed 04/09/2023 1 1 Encounter Details Date Type Department Care Team (Latest Contact Info) Description 06/02/2023 4:00 PM LANG PATH THERAPIST Ancillary Procedure [facility] [address] [place] [address] Encounter for screening mammogram for breast cancer Discharge Disposition: Home, Self Care Social History Tobacco Use Types Packs/Day Years Used Date Smoking Tobacco: Never Smokeless Tobacco: Never Sex and Gender Information Value Date Recorded Sex Assigned at Female 04/15/2022 9:22 PM LANG PATH THERAPIST Gender Identity Female 04/15/2022 9:22 PM LANG PATH THERAPIST Sexual Orientation Bisexual 04/15/2022 9: 22 PM LANG PATH THERAPIST documented as of this encounter Plan of Treatment Upcoming Encounters Date Type Department Care Team ( Contact Info) Description 07/23/2023 11:00 AM CDT Office Visit [facility] EATING DISORDER WEIGHT LOSS MANAGEMENT [address] [place] [address] [place] [address] Kolby Parker MD [address] [place] [address] [place] [address] Discharge Disposition: Home, Self Care documented as of this encounter Procedures Procedure Name Priority Date/Time Associated Diagnosis Comments MAMMOGRAM SINAN DIGITAL SCREENING STEWART Routine 06/02/2023 4:13 PM LANG PATH THERAPIST Encounter for screening mammogram for breast cancer documented in this encounter Results * MAMMOGRAM SINAN DIGITAL SCREENING STEWART (06/02/2023 4:13 PM LANG PATH THERAPIST) Anatomical Region Laterality Modality Breast Bilateral Mammography 06/14/2023 1:25 PM LANG PATH THERAPIST Narrative 06/14/2023 1:27 PM LANG PATH THERAPIST Patient Name: ?? BETSEY STOVER Date of [...] Dayo Elias MD on 06/14/2023 1:27 PM LANG PATH THERAPIST Patient/Procedure Information: [facility] RAIZA MRN/COLETTE: [id number] Order Number: [id number] Accession Number: [id number] Ordering Provider: ISIS YOUNG Authorizing Provider: ISIS YOUNG Isis Young MD MAMMOGRAPHY documented in this encounter Visit Diagnoses Diagnosis Encounter for screening mammogram for breast cancer documented in this encounter Care Teams Slip Tender Relationship Specialty Start Date End Date Provider, No Attributed, RESOURCE [address] PCP - Attributed Provider 04/29/22 Pcp, MD Anu You have no PCP on file PCP - General 05/05/22 [place], Dietitian Clinic ROMECONNIE 06/23/22 documented as of this encounter
--- OUTSIDE RECORDS SUMMARY | 2023-06-15 10:15 | XMS_ITS | Encounter Summary ---
Author Name Unknown Organization [facility] Address [address] [place] [address] Care Team Providers Care Spreader Operator Automatic Name Role Phone Provider, No Attributed RESOURCE Unavailable Unavailable Pcp, No MD Primary Care Provider Unavailabl radha [place], Dietitian Clinic Unavailable Unavaila ble Encounter Details Date Type Department Care Team (Late Contact Info) Description 06/02/2023 Telephone [facility] [address] [place] [address] Veronica Dove, [facility] [address] [place] [address] Social History Tobacco Use Types Packs/Day Years Used Date Smoking Tobacco: Never Smokeless Tobacco: Never Sex and Gender Information Value Date Recorded Sex Assigned at Female 04/15/2022 9:22 PM TENNIS COACH Gender Identity Female 04/15/2022 9:22 PM TENNIS COACH Sexual Orientation Bisexual 04/15/2022 9: 22 PM TENNIS COACH documented as of this encounter Nursing Notes * Sailaja Reddy MA - 06/02/2023 8:44 AM CST A prior authorization has been started in [facility] Medication: Dexcom G7 Sensor Faxed to CLARISA douglas on: 06/02/23 [place] :[email or web address] See Ins Referral tab for updated information. IS COACH documented in this encounter Plan of Treatment Upcoming Encounters Date Type Department Care Team (Late Contact Info) Description 07/23/2023 11:00 AM CDT Office Visit [facility] EATING DISORDER WEIGHT LOSS MANAGEMENT [address] [place] [address] [address] [place], [place] [address] Kolby Parker MD [address] [place] [address] Discharge Disposition: Home, Self Care documented as of this encounter Visit Diagnoses Not on filedocumented in this encounter Care Teams Spreader Operator Automatic Relationship Specialty Start Date End Date Provider, No Attributed, RESOURCE [address] PCP - Attributed Provider 04/29/22 PcpAnu MD You have no PCP on file PCP - General 05/05/22 [place], Dietitian Clinic SHAYYCONNIE CAPONE 06/23/22 documented as of this encounter
--- OUTSIDE RECORDS SUMMARY | 2023-06-15 10:16 | XMS_ITS | Encounter Summary ---
Author Name Unknown Organization [place] [employer] [facility] Address [address] [place] [address] [address] [place] [address] Care Team Providers Care Fuel Attendant Name Role Phone Provider, No Attributed RESOURCE Unavailable Unavailable Pcp, No MD Primary Care Provider Dante [facility], Dietitian Clinic Unavailable Unavaila ble Reason for Visit * Reason Comments Nutrition Counseling Encounter Details Date Type Department Care Team (Late st Contact Info) Description 07/13/2022 2:30 PM CDT Office Visit [facility] [address] [place], [place] [id number] [address]na Rico RD, LD [address] [place], [place] [id number] Obesity (BMI 30-39.9) (Primary Dx) Discharge Disposition: Home, Self Care Social History Tobacco Use Types Packs/Day Years Used Date Smoking Tobacco: Never Smokeless Tobacco: Never Sex and Gender Information Value Date Recorded Sex Assigned at Female 04/15/2022 9:22 PM ENGINEER STEAM Gender Identity Female 04/15/2022 9:22 PM ENGINEER STEAM Sexual Orientation Bisexual 04/15/2022 9: 22 PM ENGINEER STEAM documented as of this encounter Last Filed Vital Signs Vital Sign Reading Time Taken Comments Blood Pressure - - Pulse - - Temperature - - Respiratory Rate - - Oxygen Saturation - - Inhaled Oxygen Concentration - - Weight 102 kg (224 lb 12.8 oz) 07/13/2022 2:33 P M CDT Height - - Body Mass Index 37.41 05/05/2022 2:20 PM ENGINEER STEAM documented in this encounter Progress Notes * Morena Rico RD, LD - 07/13/2022 2:30 PM CDT Individual Check In - Visit Diagnosis: Obesity Diagnosis Code: Z68.38 BMI 38.0-38.9, adult Referring Provider: Chadd Diaz APRN-CNP Encounter Number: 2 in 2022 Others Present: self, patient Last Dietitian Visit: 06/23/2022 with this conventional mortgage underwriter Date started Intensive Behavioral Nutrition Therapy: 06/23/2022 ASSESS Starting Weight: 231.2 lbs Weight History: Current Weight: Wt Readings from Last 3 Encounters: 06/23/22 104.9 kg (231 lb 3.2 oz) 05/05/22 97.5 kg (215 lb) Desirable Weight: 170 lbs Height: Ht Readings from Last 1 Encounters: 05/05/22 165.1 cm (65) BMI: There is no height or weight on file to calculate BMI. Nutritional Supplements: Nutritional Supplements: none Food Allergies: NKFA Food Intolerances: gluten intollerance What issues/concerns do you want to make sure we address today? Patient presents today for AWLP revisit. Readiness to Change: I do plan to make changes to lose weight in the next month. Diet history comments: Patient had been eating 3 meals per day up until this week. She will be having jaw surgery on Wednesday- she will be on a clear liquid for 1 week and full liquid for 5-7 after. States that she has started eating only one meal each night to get used to the feeling of having a lower intake. Reports that she hasn't been feeling hungry since making this adjustment. She bought premier protein shakes to prepare for her surgery. We discussed clear liquid protein supplement options for the first week after surgery. 24 Hour Food Recall: Breakfast: none Snack: none Lunch: none Snack: none Supper: 5 oz steak, whole wheat northern irish muffin, peanut butter HS: none Beverages: 16 oz coffee, 100 oz water, 1 can coke zero Nutrition requirements: 1600 calories = (Mifflinx1.2)-500 for weight loss Physical Activity: walking her dog 1-2 miles per day ASSIST AND ADVISE Nutritional Intervention: Teaching initiated: Discussed different clear liquid protein sources. Discussed protein supplementation and adding unflavored protein powder to soups. Reviewed the role of protein, carbohydrates, and fats in the diet. Materials Provided: Weight Managment: Rate Your Plate and 1600 calorie menu, healthy snacks for better blood sugars AVS Evaluation/Understanding: Information was reviewed with patient. The patient's comprehension was good and receptivity was good. The patient voiced understanding, asked appropriate questions and needs more education. Comments: none AGREE Monitoring and Evaluation Plan: Patient chose the following goals: 1) Consider tracking intakes to ensure you are getting enough calories each day. 2) Physical activity as able Clear liquid proteins: - premier protein clear from [employer] - boost breeze - Protein 2O Add to soups or broth: unflavored whey protein powder Barriers to goals identified as: financial concerns ARRANGE Follow-up: 1 month The patient will phone/email with any questions or concerns. Six month assessment due on: 12/21/2022 Time spent with patient: 20 On site/Supervising Physician: Ryley Service provided: AMY [id number] Was the Medicare Obesity Counseling doc flowsheet completed? yes Is the patient part of the Adult Weight Loss Program? yes Telehealth visit? no documented in this encounter Miscellaneous Notes * Patient Instructions - Morena Rico RD, MAMIE - 07/13/2022 2:30 PM CDT 1) Consider tracking intakes to ensure you are getting enough calories each day 2) Physical activity as able Clear liquid proteins: - premier protein clear from [employer] - Protein 2O - boost breeze Add to soups or broth: unflavored whey protein powder documented in this encounter Plan of Treatment Upcoming Encounters Date Type Department Care Team (Late st Contact Info) Description 07/23/2023 11:00 AM CDT Office Visit [facility] EATING DISORDER WEIGHT LOSS MANAGEMENT [address] [place] [address] [address] [place]UC[place], [place] [address] Kolby Parker MD [address] [place] [address] [place] [address] Discharge Disposition: Home, Self Care documented as of this encounter Visit Diagnoses Diagnosis Obesity (BMI 30-39.9)- Primary Obesity, unspecified documented in this encounter Care Teams Fuel Attendant Relationship Specialty Start Date End Date Provider, No Attributed, RESOURCE [address] PCP - Attributed Provider 04/29/22 Pcp, Anu, You have no PCP on file PCP - General 05/05/22 [place], Dietitian Clinic VERONACONNIE 06/23/22 documented as of this encounter
--- OUTSIDE RECORDS SUMMARY | 2023-06-15 10:16 | XMS_ITS | Encounter Summary ---
Author Name Unknown Organization [place] [facility] Address [address] [place] [address] Care Team Providers Care Senior Mechanical Development Engineer Name Role Phone Provider, No Attributed RESOURCE Unavailable Unavailable Pcp, No MD [facility] [place], [facility] Clinic Unavailable Unavaila ble Reason for Visit * Reason Onset Date Comments Results 11/11/2022 Encounter Details Date Type Department Care Team ([facility] Contact Info) Description 11/11/2022 Telephone [facility] [place] [phone] Eliud Painting MD [address] [place] [id number] Results Social History Tobacco Use Types Packs/Day Years Used Date Smoking Tobacco: Never Smokeless Tobacco: Never Sex and Gender Information Value Date Recorded Sex Assigned at Female 04/15/2022 9:22 PM LEAD INGOT MOLDER Gender Identity Female 04/15/2022 9:22 PM LEAD INGOT MOLDER Sexual Orientation Bisexual 04/15/2022 9: 22 PM LEAD INGOT MOLDER documented as of this encounter Nursing Notes * Radha Mosher LPN - 11/11/2022 7:40 PM CDT Verified name and . Informed patient of + strep test results. Patient verbalized understanding and had no questions or concerns at this time. documented in this encounter Plan of Treatment Upcoming Encounters Date Type Department Care Team ([facility] Contact Info) Description 07/23/2023 11:00 AM CDT Office [facility] [address] [place] [address] [place] [phone] Kolby Parker MD [address] [place] [address] [place] [address] Discharge Disposition: Home, Self Care documented as of this encounter Visit Diagnoses Not on filedocumented in this encounter Care Teams Senior Mechanical Development Engineer Relationship Specialty Start Date End Date Provider, No Attributed, RESOURCE [address] PCP - Attributed Provider 04/29/22 PcpAnu MD You have no PCP on file PCP - General 05/05/22 [place], Dietitian Clinic CONNIE [place] 06/23/22 documented as of this encounter
--- OUTSIDE RECORDS SUMMARY | 2023-06-15 10:16 | XMS_ITS | Encounter Summary ---
Author Name Unknown Organization [facility] Address [address] [place] [address] Care Team Providers Care Special Crimes Investigator Name Role Phone Provider, No Attributed RESOURCE Unavailable Unavailable Pcp, No MD [facility] [place] Unavailable Unavaila ble Reason for Visit * Reason Comments Sore Throat Having a sore throat . Was vomiting and have chills yesterday. Encounter Details Date Type Department Care Team (Late st Contact Info) Description 11/11/2022 6:30 PM CDT Office Visit [facility] [place] [phone] Eliud Painting MD [address] [place] [address] Strep pharyngitis (Primary Dx); Pharyngitis, unspecified etiology Discharge Disposition: Home, Self Care Social History Tobacco Use Types Packs/Day Years Used Date Smoking Tobacco: Never Smokeless Tobacco: Never Sex and Gender Information Value Date Recorded Sex Assigned at Female 04/15/2022 9:22 PM LIVESTOCK SPECULATOR Gender Identity Female 04/15/2022 9:22 PM LIVESTOCK SPECULATOR Sexual Orientation Bisexual 04/15/2022 9: 22 PM LIVESTOCK SPECULATOR documented as of this encounter Last Filed Vital Signs Vital Sign Reading Time Taken Comments Blood Pressure 124/65 11/11/2022 6:38 PM CDT Pulse 76 11/11/2022 6:38 PM CDT Temperature 36.7 ??C (98 ??F) 11/11/2022 6:38 PM CDT Respiratory Rate 18 11/11/2022 6:38 PM CDT Oxygen Saturation 99% 11/11/2022 6:38 PM CDT Inhaled Oxygen Concentration - - Weight 94.3 kg (208 lb) 11/11/2022 6:38 PM CDT Height - - Body Mass Index 34.61 05/05/2022 2:20 PM LIVESTOCK SPECULATOR documented in this encounter Progress Notes * Eliud Painting MD - 11/11/2022 7:41 PM CDT SUBJECTIVE: Betsey Godinez is an 42yr female who presents for evaluation and treatment of sore throat. Symptoms include sore throat and swollen glands. Onset 2 days, constant since that time. Known Strep exposure: no Hx of valvular heart disease:no Social History Tobacco Use Smoking status: Never Smokeless tobacco: Never Substance Use Topics Alcohol use: Not on file OBJECTIVE: BP 124/65 (Patient Position: Sitting) Pulse 76 Temp 98 ??F (36.7 ??C) (Tympanic) Resp 18 Wt 94.3 kg(208 lb) SpO2 99% ? No BMI 34.61 kg/m2 General appearance: alert, mild distress Ears: R TM - normal, L TM - normal Nose: normal Oropharynx: moderate erythema Neck: moderate anterior cervical adenopathy bilaterally Strep NAD + ASSESSMENT:Strep throat PLAN: Tylenol 1000mg 3 times daily as needed Ibuprofen 600mg 3 times daily with food as needed cepacol Pen VK documented in this encounter Plan of Treatment Upcoming Encounters Date Type Department Care Team (Late st Contact Info) Description 07/23/2023 11:00 AM CDT Office Visit [facility]NA[facility] [address] [place] [address] [place] [phone] Kolby Parker MD [address] [place] [address] [place] [address] Discharge Disposition: Home, Self Care documented as of this encounter Procedures Procedure Name Priority Date/Time Associated Diagnosis Comments GROUP A STREPTOCOCCUS BY GABRIEL HE 11/11/2022 7:00 PM CDT Pharyngitis, unspecified etiology documented in this encounter Results * (ABNORMAL) GROUP A STREPTOCOCCUS BY GABRIEL (11/11/2022 7:00 PM CDT) Strep Group A by Nucleic Acid Detection Detected( A) Not Detected GENEXPERT DX SYSTEM_CEP HEID_MNI 11/11/2022 7:[address] [facility] Swab SPECIMEN FROM THROAT / Unknown Collection / Unknown 11/11/2022 7:00 PM CDT 11/11/2022 7:[address] [facility] - 11/11/2022 7:34 PM CDT This test was performed by polymerase chain reaction (PCR) on the GeneXpert instrument. Eliud Painting MD LAB NON BLOOD [facility] [address] [place] [address] documented in this encounter Visit Diagnoses Diagnosis Strep pharyngitis- Primary Streptococcal sore throat Pharyngitis, unspecified etiology documented in this encounter Care Teams Special Crimes Investigator Relationship Specialty Start Date End Date Provider, No Attributed, RESOURCE [address] PCP - Attributed Provider 04/29/22 Pcp, MD Anu You have no PCP on file PCP - General 05/05/22 [place], Dietitian Clinic CONNIE [place] 06/23/22 documented as of this encounter
--- OUTSIDE RECORDS SUMMARY | 2023-06-15 10:16 | XMS_ITS | Clinical Summary ---
Author Name Unknown Organization [facility] Address [address] [address] Phone Care Team Providers Care Sales Agent Food Vending Service Name Role Phone Unavailable Primary Care Provider Unavailabl e Allergies No known active allergies Medications Medication Sig Dispensed Refills Start Date End Date Status topiramate (TOPAMAX) 50 MG tablet Take 75 mg by mouth two times a day. Do not crush. 0 Active DULoxetine (CYMBALTA) 30 MG delayed release capsule Take 30 mg by mouth two times a day. Do not crush. 0 Active oxyCODONE-acetamino phen (PERCOCET) 5-325 MG oral tablet Take 1-2 Tabs by mouth every four hours as needed for Pain. Limit acetaminophen to 4000 mg per day from all sources. 0 Active LORazepam (ATIVAN) 1 MG tablet Take 1 mg by mouth one time a day as needed for Anxiety. 0 Active tiZANidine (ZANAFLEX) 4 MG tablet Take 4 mg by mouth every 12 hours as needed for Muscle Spasms. 0 Active rizatriptan (MAXALT) 10 MG tablet Take 10 mg by mouth one time as needed for Migraine. May repeat after 2 hours if needed; maximum of 30 mg per 24 hours. 0 Active budesonide-formoter ol (SYMBICORT) 80-4.5 MCG/ACT aerosol inhaler Inhale 2 Puffs into the lungs two times a day. 0 Active albuterol HFA (VENTOLIN HFA) 108 (90 Base) MCG/ACT inhalation aerosol Inhale 2 Puffs into the lungs every six hours as needed for Shortness of Breath. Shake before using. 0 Active BUSPIRONE HCL OR Take by mouth. 0 Acti ve ALLOPURINOL OR Take by mouth. 0 Active TRIAMTERENE ORIndications:takin g daily Take by mouth. Indications: taking daily 0 Active Active Problems Problem Noted Date Diagnosed Date Dizzy spells 11/01/2018 Celiac disease 10/17/2017 Depression 10/17/2017 Anxiety 10/17/2017 Asthma 10/17/2017 Migraines 10/17/2017 PTSD (post-traumatic stress disorder) 10/17/2017 Resolved Problems Problem Noted Date Diagnosed Date Resolved Date Orthostatic syncope 10/17/2017 10/19/19 18 Immunizations Name Administration Dates Next Due DTaP <7 years 06/30/2012 Influenza Seasonal Inj A,B 05/20/2007,05/18/2006 MMR 08/31/2012 Tdap (7 years and older) 06/30/2012,02/07/2011,0 06/24/2007 Surgical History Surgery Date Site/Laterality Comments SECTION LUMBAR SPINE SURGERY CARPAL TUNNEL RELEASE HERNIA REPAIR LIPECTOMY CHOLECYSTECTOMY TUBAL LIGATION DILATION AND CURETTAGE OF UTERUS LAP,DIAGNOSTIC ABDOMEN Medical History Medical History Date Comments Factor V Leiden (HCC) PCOS (polycystic ovarian syndrome) Stress incontinence, female Gout Depression Asthma Hypertension Sleep apnea Kidney stones Ovarian cyst Arthritis History of recurrent miscarriages PTSD (post-traumatic stress disorder) Anxiety Migraine Hirsutism Syncope Family History Medical History Relation Comments Other Brother car accident Cardiovascular Disease Maternal Grandfather Diabetes Maternal Grandfather Cardiovascular Disease Mother Cervical Cancer Mother Diabetes Mother Kidney Stones Negative Family Hx Thyroid Disease Negative Family Hx Relation Status Comments Brother Maternal Grandfather Mother Social History Tobacco Use Types Packs/Day Years Used Date Smoking Tobacco: Never Smokeless Tobacco: Never Alcohol Use Standard Drinks/Week Comments No 0 (1 standard drink = 0.6 oz pur e alcohol) Sex and Gender Information Value Date Recorded Sex Assigned at Not on file Gender Identity Not on file Sexual Orientation Not on file Job Start Date Occupation Industry Not on file Not on file Not on file Obstetrics History Last Filed Vital Signs Vital Sign Reading Time Taken Comments Blood Pressure 121/80 11/23/2018 9:31 AM CDT Pulse 83 11/23/2018 9:31 AM CDT Temperature 36.8 ??C (98.2 ??F) 11/16/2018 8:31 AM CD T Respiratory Rate 16 10/18/2017 7:43 AM CDT Oxygen Saturation 98% 10/18/2017 7:09 AM CDT Inhaled Oxygen Concentration - - Weight 91.6 kg (202 lb) 11/23/2018 9:31 AM CDT Height 165.1 cm (5' 5) 09/22/2018 9:11 AM CDT Body Mass Index 33.61 09/22/2018 9:11 AM CDT Plan of Treatment Health Maintenance Due Date Last Done Comments Cervical Cancer Screening 1979 Hepatitis B Vaccine (Standing Order) (1 of 3 - 3-dose series) 1979 Last pap w/ HPV Testing 1979 Last pap w/o HPV Testing 1979 MAMMO,SCREEN 1979 COVID-19 Vaccine (#1) 03/30/1980 TETANUS (Standing Order) 06/30/2022 013, 06/30/2012, 02/07/2011, Additional history exists Influenza Vaccine Seasonal (Standing Order) (#1) 2023 05/20/2007, 05/18/2006 PERTUSSIS (Standing Order) Completed 06/30, 06/30/2012, 02/07/2011, Additional history exists HPV Vaccine (Standing Order) Aged Out No longer eligible based on patient's age to complete this topic Pneumococcal/PCV20 Vaccine: Pediatrics (2-5 yrs) and At-Risk Patients (6-64 yrs) (Standing Order) Aged Out No longer eligible based on patient's age to complete this topic Advance Directives For more information, please contact: [phone] Latest Code Status on File Code Status Date Activated Date Inactivated Comments Full Code 10/17/2017 8:16 PM 10/18/2017 5:15 PM
--- OUTSIDE RECORDS SUMMARY | 2023-06-15 10:16 | XMS_ITS | Referral Summary ---
Author Name Unknown Organization [facility] Address [facility] [place] [address] Care Team Providers Care Twister Doffer Name Role Phone Jonathon Pelayo PA-C Unavailable Zoltan Young MD Primary Care Provider [phone] Allergies Active Allergy Reactions Criticality Noted Date Comments Adhesive Tape 10/02/2019 Gluten Meal GI Disturbance 08/11/2017 Other reaction(s): GI intolerance Pollen Extract Unknown 09/10/2016 Medications Medication Sig Dispensed Refills Start Date End Date Status tiZANidine (ZANAFLEX) 4 MG tablet TAKE 1 TABLET BY MOUTH EVERY NIGHT AT BEDTIME NEEDED 0 05/18/2019 Active triamterene-HCTZ (DYAZIDE) 37.5-25 MG capsule Take 1 capsule by mouth daily 0 05/16/2019 Active allopurinol (ZYLOPRIM) 100 MG tablet Take 100 mg by mouth daily 0 05/16/2019 Active DULoxetine (CYMBALTA) 30 MG capsule Take 30 mg by mouth 0 Active buPROPion (WELLBUTRIN SR) 150 MG 12 hr tablet Take 150 mg by mouth 2 times daily 0 05/16/2019 Active busPIRone HCl (BUSPAR) 30 MG tablet TAKE 1 TABLET BY MOUTH TWICE A DAY 0 04/01/2019 Active LORazepam (ATIVAN) 1 MG tablet Take 1 mg by mouth 0 02/21/2018 Active HYDROcodone-acetamino phen (NORCO) 5-325 MG tablet TAKE 1 TABLET BY MOUTH EVERY 8 HOURS NEEDED 0 05/18/2019 Active rizatriptan (MAXALT) 10 MG tablet Take 10 mg by mouth 0 Active senna-docusate (SENOKOT-S/PERICOLACE ) 8.6-50 MG tablet Take 1-4 tablets by mouth 0 06/13/2018 Active traZODone (DESYREL) 100 MG tablet Take 100 mg by mouth 0 05/31/2018 Active topiramate (TOPAMAX) 50 MG tablet Take 75 mg by mouth 0 05/31/2018 Active childrens multivitamin w/iron (FLINTSTONES COMPLETE) 18 MG chewable tabletIndications:Mor bid obesity (H) One tablet once a day 100 tablet 11 11/20/2019 Active calcium citrate (CITRACAL) 950 MG tabletIndications:Mor bid obesity (H) Take 1 tablet (950 mg) by mouth 2 times daily 180 tablet 3 12/14/2019 Active cholecalciferol 50 MCG (1999 UT) CAPSIndications:Morbi d obesity (H) Take 1 capsule by mouth daily 30 capsule 3 12/18/2020 Active Active Problems Problem Noted Date Diagnosed Date Amenorrhea 10/02/2019 DDD (degenerative disc disease), lumbosacral 05/2019 Edema 10/02/2019 Gout 10/02/2019 Polycystic ovary syndrome 10/02/2019 Spinal stenosis of lumbosacral region 10/02/2019 History of cholecystectomy 10/02/2019 History of eating disorder 10/02/2019 Morbid obesity 10/02/2019 Asthma, mild persistent 05/31/2018 Factor V Leiden mutation (H24) 05/31/2018 Overview: Heterozygous, no personal history of DVT/PE Low back pain 05/31/2018 MIKAELA (obstructive sleep apnea) 05/31/2018 Stress incontinence 05/31/2018 Migraines 10/17/2017 Calculus of kidney 09/30/2013 Adjustment disorder with anxiety 09/30/2009 PTSD (post-traumatic stress disorder) 09/30/2009 Social History Tobacco Use Types Packs/Day Years Used Date Smoking Tobacco: Never Smokeless Tobacco: Never Alcohol Use Standard Drinks/Week Comments Not Currently 0 (1 standard drink = 0.6 oz pur e alcohol) Adolescent Education Answer Date Record ed Getting School Help Needed Not on file 02/07 Sex and Gender Information Value Date Recorded Sex Assigned at Female 10/01/2019 8:04 PM CDT Gender Identity Female 10/01/2019 8:04 PM CDT Sexual Orientation Straight 10/01/2019 8: 04 PM CDT Last Filed Vital Signs Vital Sign Reading Time Taken Comments Blood Pressure 135/96 05/23/2019 11:22 AM CARDIAC/VASCULAR SONOGRAPHER Pulse 88 05/23/2019 11:22 AM CARDIAC/VASCULAR SONOGRAPHER Temperature - - Respiratory Rate - - Oxygen Saturation 100% 05/23/2019 11:22 AM CARDIAC/VASCULAR SONOGRAPHER Inhaled Oxygen Concentration - - Weight 98.4 kg (217 lb) 12/05/2019 11:49 AM CDT Height 165.1 cm (5' 5) 12/05/2019 11:49 AM CDT Body Mass Index 36.11 12/05/2019 11:49 AM CDT Plan of Treatment Not on file Care Teams Twister Doffer Relationship Specialty Start Date End Date Zoltan Young MD [facility] [address] [place] [address] PCP - General Family Practice 04/12/19 Jonathon Pelayo PA-C [facility] [address] [place] [address] Physician Laboratory Secretary Physician Laboratory Secretary 04/04/19
--- OUTSIDE RECORDS SUMMARY | 2023-06-15 10:16 | XMS_ITS | Encounter Summary ---
Author Name Unknown Organization [facility] Address [address] [place] [address] [address] [place] [address] Care Team Providers Care Slope Runner Name Role Phone Provider, No Attributed RESOURCE Unavailable Unavailable Pcp, No MD Primary Care Provider Dante [place], Dietitian Clinic Unavailable Unavaila ble Reason for Visit * Reason Comments Nutrition Counseling Encounter Details Date Type Department Care Team (Late st Contact Info) Description 06/23/2022 3:00 PM CARE ADMINISTRATIVE TECH Office Visit [address] [place] [phone], [place] [address], [place] [address] Obesity (BMI 30-39.9) (Primary Dx) Discharge Disposition: Home, Self Care Social History Tobacco Use Types Packs/Day Years Used Date Smoking Tobacco: Never Smokeless Tobacco: Never Sex and Gender Information Value Date Recorded Sex Assigned at Female 04/15/2022 9:22 PM CARE ADMINISTRATIVE TECH Gender Identity Female 04/15/2022 9:22 PM CARE ADMINISTRATIVE TECH Sexual Orientation Bisexual 04/15/2022 9: 22 PM CARE ADMINISTRATIVE TECH documented as of this encounter Last Filed Vital Signs Vital Sign Reading Time Taken Comments Blood Pressure - - Pulse - - Temperature - - Respiratory Rate - - Oxygen Saturation - - Inhaled Oxygen Concentration - - Weight 104.9 kg (231 lb 3.2 oz) 06/23/2022 3:03 PM CARE ADMINISTRATIVE TECH Height - - Body Mass Index 38.47 05/05/2022 2:20 PM CARE ADMINISTRATIVE TECH documented in this encounter Progress Notes * Morena Rico RD, LD - 06/23/2022 3:00 PM CST Individual Check In - Visit Diagnosis: Obesity Diagnosis Code: Z68.38 BMI 38.0-38.9, adult Referring Provider: Chadd Diaz APRN-CNP Encounter Number: 1 in 2022 Others Present: self, patient Last Dietitian Visit: none Date started Intensive Behavioral Nutrition Therapy: 06/23/2022 ASSESS Starting Weight: 213.2 lbs Weight History: Current Weight: Wt Readings from Last 3 Encounters: 06/23/22 104.9 kg (231 lb 3.2 oz) 05/05/22 97.5 kg (215 lb) Desirable Weight: 170 lbs Height: Ht Readings from Last 1 Encounters: 05/05/22 165.1 cm (65) BMI: Body mass index is 38.47 kg/m??. Nutritional Supplements: Nutritional Supplements: none Food Allergies: NKFA Food Intolerances: gluten intollerance Using Meal Replacement: No Learning Needs Assessment: Special Considerations: none Learning Readiness: indicates learning readiness Cultural/baptist/spiritual considerations: is Episcopal and patient avoids pork What issues/concerns do you want to make sure we address today? Patient presents today for the adult weight loss program introduction and nutrition counseling related to weight management. Readiness to Change: I do plan to make changes to lose weight in the next month. 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 Patient states that her mentality around food is still keto and she feels guilt when eating carbohydrates. States that she has a very irregular eating patterns - she may eat 3 meals per day, may not eat all day with the goal of losing weight. States that she has a history of bulimia but hasn't engaged in purging behavior since 2013. Reports that she eats the foods her kids eat. States that she is not a picky eater. Past diet attempts: Did keto and got down to 170 lbs. 24 Hour Food Recall: Breakfast: malay yogurt or oatmeal or an egg with keto bread or skips Snack: snack Lunch: left overs or cheese and crackers skip Snack: none or gardettos or cheese it snap'd or summer sausage or olives or a fig bar or cashews Supper: burgers or pasta or HS: none or cheese and crackers or ice cream Beverages - 70-100 oz water, 20 oz coffee with SF creamer, no milk or juice, occasional coke zero, no ETOH. Nutrition requirements: 1600 calories = (Mifflinx1.2)-500 for weight loss Physical Activity: no regular routine, has a membership to [employer] Nutritional Intervention: Teaching initiated: Instructed patient on diet for obesity. Reviewed aspects of AWLP. Discussed importance of developing healthy lifetime eating habits, as opposed to dieting. Recommend gradual changes in eating habits.Discussed importance of distributing calories evenly throughout the day and keeping to a routine. Explained the plate method, recommend 1/2 plate vegetables, 1/4 plate protein and 1/4 plate starch. Explained that protein and fiber will help with satiety. Gave suggestions for higher fiber food and higher protein foods. Also gave suggestions for meals and snacks. Discussed the benefits of physical activity. Discussed taking time to eat at meals and savoring foods and well as focusing on hunger and fullness cues. Materials Provided: Weight Managment: Rate Your Plate and 1600 calorie menu, healthy snacks for better blood sugars AVS Evaluation/Understanding: Information was reviewed with patient. The patient's comprehension was good and receptivity was good. The patient voiced understanding, asked appropriate questions and needs more education. Comments: none AGREE Monitoring and Evaluation Plan: Patient chose the following goals: 1) Exercise 3 days per week for at least 10 minutes. 2) Have something for breakfast 3 days per week. [facility]: Barriers to goals identified as: financial concerns ARRANGE Follow-up: 1 month The patient will phone/email with any questions or concerns. Six month assessment due on: 12/21/2022 Time spent with patient: 20 On site/Supervising Physician: Álvaro Chester Service provided: AMY [id number] Was the Medicare Obesity Counseling doc flowsheet completed? yes Is the patient part of the Adult Weight Loss Program? yes Telehealth visit? no ADMINISTRATIVE TECH documented in this encounter Miscellaneous Notes * Patient Instructions - Morena Rico RD, MAMIE - 06/23/2022 3:00 PM CST Goals: 1) Exercise 3 days per week for at least 10 minutes. 2) Have something for breakfast 3 days per week. [facility]: ADMINISTRATIVE TECH documented in this encounter Plan of Treatment Upcoming Encounters Date Type Department Care Team (Late st Contact Info) Description 07/23/2023 11:00 AM CDT Office Visit [facility] [address] [place] [address] [place] [phone] Kolby Parker MD [address] [place] [address] Discharge Disposition: Home, Self Care Scheduled Referrals Name Type Priority Associated Diagnoses Orde r Schedule CLINIC REFERRAL DIETITIAN ONE CHART Referral Routine Obesity (BMI 30-39.9) Ordered: 05/29/2022 documented as of this encounter Visit Diagnoses Diagnosis Obesity (BMI 30-39.9)- Primary Obesity, unspecified documented in this encounter Care Teams Slope Runner Relationship Specialty Start Date End Date Provider, No Attributed, RESOURCE [address] PCP - Attributed Provider 04/29/22 PcpAnu MD You have no PCP on file PCP - General 05/05/22 [place], Dietitian Clinic [place], [place] 06/23/22 documented as of this encounter
--- OUTSIDE RECORDS SUMMARY | 2023-06-15 10:16 | XMS_ITS | Continuity of Care Document ---
Author Name Unknown Organization [facility] Address [address] [place] [address] Phone Care Team Providers Care Confidential Investigator Name Role Phone Chan Hancock MD Unavailable Unavailable Allergies, Adverse Reactions, Alerts Substance Reaction Status Criticality No Known Allergies Active No Inform ation Medications Medication Instructions Dosage Effective Dates (start - stop) Status Comments gabapentin 300 mg capsule take 1 capsule by oral route 3 times every day 300 MG - Active LIDOCAINE (unknown strength) Not Available - Active CYMBALTA (unknown strength) Not Available - Active SONATA (unknown strength) Not Available - Active MAXALT (unknown strength) Not Available - Active APLENZIN (unknown strength) Not Available - Active TRAZODONE HCL (unknown strength) Not Available - Active ATIVAN (unknown strength) Not Available - Active TOPAMAX (unknown strength) Not Available - Active Procedures Procedure Date Office/Outpatient Visit,Est, Mod 2018 X-Ray Exam Lower Spine 2-3 Views 2018 Postop Followup Visit Pa Assist Lumbar Spine Fusion, Posterola teral Pa Assist Spine Fusion, Each Add'Lverteb ra Remove Lumbar Spine Lamina, 1 Seg Pa Assist Remove Added Spine Lamina, 1 S eg Pa Assist Insert Spine Seg Fix, Post, 3- 6 Seg PA Assist Insert interbody cage w/fusion Lumbar Spine Fusion, Posterolateral Spine Fusion, Each Add'Lvertebra 2018 Lumbar Spine Fusion W/Bone Graft 2018 Spinal Fusion, Ea Add'L Interspace Remove Lumbar Spine Lamina, 1 Seg Remove Added Spine Lamina, 1 Seg 2018 Insert Spine Seg Fix, Post, 3-6 Seg Insert interbody cage w/fusion 19 BONE MARROW ASPIR BONE GRFG Allograft, Spine Surg, Morselized Office/Outpatient Visit,Est, Mod 2018 Office/Outpatient Visit,Est, Mod 2017 Office/Outpatient Visit,Est, Mod 2016 Office/Outpatient Visit,Est, Mod 2013 Office/Outpatient Visit,Est, Mod 2013 Office/Outpatient Visit,New, Mod 2013 Advance Directives Directive Yes / No Effective Date File Name No Information Encounters Encounter Description Practice Location Reason(s) For Visit Diagnoses Date Provider Providers Copied on Encounter [facility], [address], [place], [place], [id number], [place] [phone] [facility] Information 9 Santi Chan. [facility] [place], [address] [place] [address], [address], [place], [place], [id number] , [place]. [phone] Office/Outpa tient Visit,Est, Mod [facility], [address], [place], [place], [id number], [place] [phone] [facility] Encounter for other specified surgical aftercare 9 Antione Cates. [facility] [place], [address], [address], [place], [place], [id number] , [place]. [phone] Referring Provider: Darryn Hernandez, [facility] [place] [address], [address], [place], [address] . tel:[phone] [facility], [address], [place], [place], [id number], [phone] [facility] Kumar Encounter for other specified surgical aftercare 9 Megha Briceño. [facility], [address], [address], [place], [place], [id number] , . tel:[phone] Referring Provider: Darryn Hernandez, [facility] [address], [address], [place], [address] . tel:[phone] [facility], [address], [place], [place], [id number], [place] tel:[phone] [facility] No Information 9 Panvica Navarro. [facility], [address], [address], [place], [place], [id number] , [place]. tel:[phone] [facility], [address], [place], [place], [id number], [place] tel:[phone] [facility] No Information Panvica Navarro. [facility], [address], [address], [place], [place], [address] , [place]. [phone] Referring Provider: Darryn Hernandez, [facility] [address], [address], [place], [address] . tel:[phone] [facility], [address], [place], [place], [id number], [place] tel:[phone] [facility] No Information Antione Cates. [facility], [address], [address], [place], [place], [address] , [place]. [phone] Referring Provider: Darryn Hernandez, [facility] [address], [address], [place], [address] . tel:[phone] Office/Outpa tient Visit,Est, Mod [facility], [address], [place], [place], [id number], [place] tel:[phone] [facility] Other intervertebral disc degeneration, lumbar regionOther intervertebral disc degeneration, lumbosacral region Kristopher-[phone] Talbot Darryn. [facility] [place], [address], [address], [place], [place], [address] , [place]. tel:[phone] Referring Provider: Darryn Hernandez, [facility] [address], [address], [place], [address] . tel:[phone] Office/Outpa tient Visit,Est, Mod [facility], [address], [place], [place], [address], [place] tel:[phone] [facility] [place] Other intervertebral disc degeneration, lumbar regionLow back painOther intervertebral disc degeneration, lumbosacral region 8 Talbot Darryn. [facility], [address] [place] [address], [address], [place], [place], [id number] , [place]. tel:[phone] Referring Provider: Darryn Hernandez, [address], [address], [place], [address] . tel:[phone] Office/Outpa tient Visit,Est, Mod [facility], [address], [place], [place], [address], [place] tel:[phone] [facility] [place] Other intervertebral disc degeneration, lumbar regionOther intervertebral disc degeneration, lumbosacral region 7 Talbot Darryn. [facility], [address] [place] [address], [address], [place], [place], [id number] , [place]. [phone] Referring Provider: Referring Self, [facility] [address] [facility] [address], [place], [address]. tel:[phone] Office/Outpa tient Visit,Est, Mod Z [facility] [place], [facility] [address] [place], [place] [address] [address], [place], [address], [place] [phone] [facility] - [facility] Back Pain (chief complaint) Backache, unspecifiedObe sityDegenerati on of lumbar or lumbosacral intervertebral disc 201 4 Talbot Darryn. [facility], [address] [place] [address], [address], [place], [place], [id number] , [place]. tel:[phone] Referring Provider: Jordan Campoverde, [facility] [address], [address]. tel:[phone] Office/Outpa tient Visit,Est, Mod Z [facility], [address], [place], [address], [place] tel:[phone] [facility] No Information 4 Talbot Darryn. [facility], [address] [place] [address], [address], [place], [place], [address] , [place]. tel:[phone] Referring Provider: Jordan Campoverde, [facility] [address] [place] [address], [address]. tel:[phone] Office/Outpa tient Visit,New, Mod Z [facility], [address] [place], [place] [address], [place], [address], [place] tel:[phone] [facility] No Information 4 Talbot Darryn. [facility], [address], [address], [place], [place], [address] , [place]. tel:[phone] Referring Provider: Jordan Campoverde, [facility] [address], [address]. tel:[phone] Family History Family Member Type Diagnosis Age At Onset No Information Payers Payer name Insurance type Covered green party ID Authorshanona tiibis(s) [facility] [id number] Social History Type Description Quantity Date Captured Comments Sex Female Smoking Status No Information Chief Complaint And Reason For Visit No Information Reason For Referral Reason For Referral No Information History Of Present Illness Encounter Date Complaint History Of Prese nt Illness Back Pain Functional Status Date Functional Assessmen t No Information Instructions Date Instruction Additional Infor nael Weight management: I nstructed to return to General Practitioner timeframe: 1 Month. Related to Overweight Weight Management Education Rela ze to Overweight Weight Management Related to Obe sity, unspecified Assessments Type Assessment Date No Information Patient Care Teams Name Effective Dates (start - stop) Status Members No Information
--- OUTSIDE RECORDS SUMMARY | 2023-06-15 10:16 | XMS_ITS | Encounter Summary ---
Author Name Unknown Organization [facility] Address [address] [place] [address] Care Team Providers Care Visual Merchandising Manager Name Role Phone Provider, No Attributed RESOURCE Unavailable Unavailable Pcp, No MD Primary Care [facility] Lucas, Diet[facility] Unavailable Unavaila ble Reason for Visit * Reason Comments Sore Throat X4 days, worsened ye sterday Fever Encounter Details Date Type Department Care Team (Late st Contact Info) Description 10/12/2022 2:05 PM CDT Office Visit [facility] [address] [place] [place] [address] Yolanda Boswell PA-C [address] [place] [address] Pharyngitis, unspecified etiology (Primary Dx) Discharge Disposition: Home, Self Care Social History Tobacco Use Types Packs/Day Years Used Date Smoking Tobacco: Never Smokeless Tobacco: Never Sex and Gender Information Value Date Recorded Sex Assigned at Female 04/15/2022 9:22 PM PUMP HOUSE ENGINEER Gender Identity Female 04/15/2022 9:22 PM PUMP HOUSE ENGINEER Sexual Orientation Bisexual 04/15/2022 9: 22 PM PUMP HOUSE ENGINEER documented as of this encounter Last Filed Vital Signs Vital Sign Reading Time Taken Comments Blood Pressure 138/89 10/12/2022 2:14 PM CDT Pulse 77 10/12/2022 2:14 PM CDT Temperature 37.7 ??C (99.9 ??F) 10/12/2022 2:14 PM CD T Respiratory Rate 16 10/12/2022 2:14 PM CDT Oxygen Saturation 99% 10/12/2022 2:14 PM CDT Inhaled Oxygen Concentration - - Weight 94.5 kg (208 lb 6.4 oz) 10/12/2022 2:14 P M CDT Height - - Body Mass Index 34.68 05/05/2022 2:20 PM PUMP HOUSE ENGINEER documented in this encounter Progress Notes * Yolanda Boswell PA-C - 10/12/2022 2:18 PM CDT Assessment / Plan Pharyngitis, unspecified etiology - GROUP A STREPTOCOCCUS BY GABRIEL; Future Plan: 1. Results to mychart 2. Warm salt water gargles 3. Chloraseptic throat spray 4. Motrin as needed for discomfort and fevers 5. Return to clinic if symptoms do not improve or worsen No follow-ups on file. HPI / History / ROS Sore Throat This is a new problem. Episode onset: 2 days, felt sick for the last 4 days. The problem has been gradually worsening. Neither side of throat is experiencing more pain than the other. Maximum temperature: low grade fever. The pain is moderate. Associated symptoms include headaches and trouble swallowing. Pertinent negatives include no coughing. Associated symptoms comments: Fatigue, chills. She has had no exposure to strep or mono. She has tried NSAIDs for the symptoms. Fever Associated symptoms include headaches and a sore throat. Pertinent negatives include no coughing. Medications Outpatient Medications Prior to Visit Medication Sig Dispense Refill buPROPion (WELLBUTRIN SR) 150 mg SR (12 [...] Take 10 mg by mouth as needed enoxaparin (LOVENOX) 30 MG/0.3ML injection solution Inject 30 mg subcutaneously spironolactone (ALDACTONE) 100 mg tablet Take 100 mg by mouth 1 time per day (Patient not taking: Reported on 10/12/2022) meloxicam (MOBIC) 7.5 mg tablet Take 7.5 mg by mouth 1 time per day No facility-administered medications prior to visit. Allergies Allergies Allergen Reactions Adhesives Unknown/Not Verified tegaderm makes raw skin. States tape is ok Gluten Meal Other (Specify in Comments) Other reaction(s): GI intolerance Pollen Extract-Tree Extract Unknown/Not Verified and Other (Specify in Comments) Nasal congestion ROS Review of Systems Constitutional: Positive for chills and fatigue. HENT: Positive for sore throat and trouble swallowing. Respiratory: Negative for cough. Neurological: Positive for headaches. Psychiatric/Behavioral: Negative. Physical / Results BP 138/89 Pulse 77 Temp 99.9 ??F (37.7 ??C) (Tympanic) Resp 16 Wt 94.5 kg (208 lb 6.4 oz) SpO2 99% BMI 34.68 kg/m2 Physical Exam Constitutional: Appearance: Normal appearance. HENT: Head: Normocephalic and atraumatic. Right Ear: Tympanic membrane and ear canal normal. Left Ear: Tympanic membrane and ear canal normal. Nose: Nose normal. Mouth/Throat: Pharynx: Pharyngeal swelling and posterior oropharyngeal erythema present. Tonsils: Tonsillar exudate present. Cardiovascular: Rate and Rhythm: Normal rate and regular rhythm. Pulmonary: Effort: Pulmonary effort is normal. Skin: General: Skin is warm. Neurological: General: No focal deficit present. Mental Status: She is alert and oriented to person, place, and time. Mental status is at baseline. Psychiatric: Mood and Affect: Mood normal. Behavior: Behavior normal. Thought Content: Thought content normal. Judgment: Judgment normal. Patient or sales representative printing supplies communicated understanding of plan and education received. documented in this encounter Miscellaneous Notes * Patient Instructions - Yolanda Boswell PA-C - 10/12/2022 2:05 PM CDT 1. Results to mychart 2. Warm salt water gargles 3. Chloraseptic throat spray 4. Motrin as needed for discomfort and fevers 5. Return to clinic if symptoms do not improve or worsen documented in this encounter Plan of Treatment Upcoming Encounters Date Type Department Care Team (Late st Contact Info) Description 07/23/2023 11:00 AM CDT Office Visit [facility] E[facility] [address] [place] [address] [place] [id number] Kolby Parker MD [address] [place] [address] [place] [address] Discharge Disposition: Home, Self Care documented as of this encounter Procedures Procedure Name Priority Date/Time Associated Diagnosis Comments GROUP A STREPTOCOCCUS BY GABRIEL YING 10/12/2022 2:20 PM CDT Pharyngitis, unspecified etiology documented in this encounter Results * GROUP A STREPTOCOCCUS BY GABRIEL (10/12/2022 2:20 PM CDT) Strep Group A by Nucleic Acid Detection Not Detected Not Detected [employer] DX SYSTEM_CEP HEID_MNI 10/12/2022 2:53 PM CDT [facility] Swab SPECIMEN FROM THROAT / Unknown Collection / Unknown 10/12/2022 2:20 PM CDT 10/12/2022 2:26 PM CDT Narrative [facility] - 10/12/2022 2:53 PM CDT This test was performed by polymerase chain reaction (PCR) on the GeneXpert instrument. Yolanda Boswell PA-C LAB NON BLOOD [facility] [address] [place] [address] documented in this encounter Visit Diagnoses Diagnosis Pharyngitis, unspecified etiology- Primary documented in this encounter Care Teams Visual Merchandising Manager Relationship Specialty Start Date End Date Provider, No Attributed, RESOURCE [address] PCP - Attributed Provider 04/29/22 Pcp, Anu, You have no PCP on file PCP - General 05/05/22 [place], Dietitian Clinic SHAYY, CONNIE 06/23/22 documented as of this encounter
--- OUTSIDE RECORDS SUMMARY | 2023-06-15 10:16 | XMS_ITS | Encounter Summary ---
Author Name Unknown Organization [facility] Address [address] [place] [address] Care Team Providers Care Machine Dyer Name Role Phone Jonathon Pelayo PA-C Unavailable Zoltan Young MD Primary Care Provider [phone] Abi Echeverria MD Unavailable [phone] Chase Florentino MD Unavailable [phone] Encounter Details Date Type Department Care Team (Late st Contact Info) Description 10/02/2019 [facility] Medical Advice [facility] [address] [place] [address] [facility] Social History Tobacco Use Types Packs/Day Years Used Date Smoking Tobacco: Never Smokeless Tobacco: Never Alcohol Use Standard Drinks/Week Comments Not Currently 0 (1 standard drink = 0.6 oz pur e alcohol) Sex and Gender Information Value Date Recorded Sex Assigned at Female 10/01/2019 8:04 PM CDT Gender Identity Female 10/01/2019 8:04 PM CDT Sexual Orientation Straight 10/01/2019 8: 04 PM CDT documented as of this encounter Plan of Treatment Not on file documented as of this encounter Visit Diagnoses Not on filedocumented in this encounter Care Teams Machine Dyer Relationship Specialty Start Date End Date Zoltan Young MD [facility] [address] [place] [address] PCP - General Family Practice 04/12/19 Jonathon Pelayo PA-C [facility] [address] [place] [address] Physician Welfare Investigator Physician Welfare Investigator 04/04/19 Abi Echeverria MD [address] [place] [address] [address] [place] [address] Assigned PCP 09/07/19 11/14/20 Chase Florentino MD [address] [place] [address] [address] [place] [address] Assigned Musculoskeletal Provider 02/23/20 11/23/20 documented as of this encounter
--- OUTSIDE RECORDS SUMMARY | 2023-06-15 10:16 | XMS_ITS | Clinical Summary ---
Author Name [facility] Address [address] [place] [address] Care Team Providers Care Cardiovascular Disease Specialist Name Role Phone Unassigned, Provider Primary Care Provider Unava ilable Source Comments You are receiving this document as you are listed as the primary care provider,follow-up provider, or the patient has been referred to you for consultation.This is in compliance with the Medicare and[facility] EHR Incentive Program,which states Providers who transition their patient to another setting of careor provider of care or refers their patient to another provider of care shouldprovide summary care record for each transition of care or referral. [employer] Allergies Active Allergy Reactions Criticality Noted Date Comments Gluten Meal Gastrointestinal,Oth er, see comments 08/11/2017 Other reaction(s): GI intolerance Other reaction(s): GI intolerance Active Problems Problem Noted Date Diagnosed Date Acute postoperative pain 05/15/2022 DDD (degenerative disc disease), lumbosacral Spinal stenosis of lumbosacral region 05/15/2022 Polycystic ovary syndrome 05/15/2022 Bilateral hand numbness 05/08/2022 Pain in both hands 05/08/2022 S/P spinal fusion 03/16/2020 Overview: L5/S1 Dizzy spells 11/01/2018 Asthma, mild persistent 05/31/2018 Factor V Leiden mutation 05/31/2018 Overview: Heterozygous, no personal history of DVT/PE MIKAELA (obstructive sleep apnea) 05/31/2018 Obesity 05/31/2018 Low back pain 05/31/2018 Kidney stones 05/31/2018 Hypoglycemia 05/31/2018 Stress incontinence 05/31/2018 Anxiety 10/17/2017 Asthma 10/17/2017 Celiac disease 10/17/2017 Depression 10/17/2017 Migraines 10/17/2017 PTSD (post-traumatic stress disorder) 10/17/2017 Right carpal tunnel syndrome 08/05/2015 Social History Tobacco Use Types Packs/Day Years Used Date Smoking Tobacco: Never Assessed Sex and Gender Information Value Date Recorded Sex Assigned at Not on file Gender Identity Not on file Sexual Orientation Not on file Last Filed Vital Signs Vital Sign Reading Time Taken Comments Blood Pressure 137/84 05/15/2022 9:11 PM HOOP MAKER Pulse 73 05/15/2022 9:11 PM HOOP MAKER Temperature 36 ??C (96.8 ??F) 05/15/2022 9:11 PM HOOP MAKER Respiratory Rate 13 05/15/2022 10:42 PM HOOP MAKER Oxygen Saturation 99% 05/15/2022 9:11 PM HOOP MAKER Inhaled Oxygen Concentration - - Weight 99.8 kg (220 lb) 05/15/2022 9:11 PM HOOP MAKER Height 165.1 cm (5' 5) 05/15/2022 9:50 PM HOOP MAKER Body Mass Index 36.61 05/15/2022 9:11 PM HOOP MAKER Plan of Treatment Health Maintenance Due Date Last Done Comments Cervical Cancer Screening Due 1979 Hep C Screening (Preventive Services) 1980 HepB (1) 1979 Medicare Annual Wellness Visit 1979 COVID-19 Vaccine (#1) 03/30/1980 Asthma ACT 1983 Pneumococcal (1 - PCV) 09/27/1985 HIV Screening (Preventive Services) 1995 DTaP/Tdap/Td (5 - Tdap) 06/30/2022 06/30/19 13, 06/30/2012, 02/07/2011, Additional history exists Influenza (#1) 2023 05/20/2007, 05/18/2006 Zoster/Shingles (1 of 2) 09/27/2029 HPV Vaccine Aged Out No longer eligi ble based on patient's age to complete this topic HepA Aged Out No longer eligi ble based on patient's age to complete this topic Hib Aged Out No longer eligi ble based on patient's age to complete this topic IPV (Polio) Aged Out No longer eligi ble based on patient's age to complete this topic MCV4 Aged Out No longer eligi ble based on patient's age to complete this topic Care Teams Cardiovascular Disease Specialist Relationship Specialty Start Date End Date Unassigned, Provider [address] [place] [address] PCP - General Unknown Physician Specialty 05/15/22
--- OUTSIDE RECORDS SUMMARY | 2023-06-15 10:16 | XMS_ITS | Clinical Summary ---
Author Name Unknown Organization [facility] Address [facility] [place] [address] Care Team Providers Care Metal Bonding Assembler Name Role Phone Jonathon Pelayo PA-C Unavailable [phone] Zoltan Young MD Primary Care Provider [phone] Allergies Active Allergy Reactions Criticality Noted Date [...] Comments Blood Pressure 135/96 05/23/2019 11:22 AM HEALTH INSURANCE AGENT Pulse 88 05/23/2019 11:22 AM HEALTH INSURANCE AGENT Temperature - - Respiratory Rate - - Oxygen Saturation 100% 05/23/2019 11:22 AM HEALTH INSURANCE AGENT Inhaled Oxygen Concentration - - Weight 98.4 kg (217 lb) 12/05/2019 11:49 AM CDT Height 165.1 cm (5' 5) 12/05/2019 11:49 AM CDT Body Mass Index 36.11 12/05/2019 11:49 AM CDT Plan of Treatment Health Maintenance Due Date Last Done Comments ADVANCE CARE PLANNING 1979 ANNUAL REVIEW OF HM ORDERS 1979 ASTHMA ACTION PLAN 1979 ASTHMA CONTROL TEST 1979 HEPATITIS B IMMUNIZATION (1 of 3 - 3-dose series) 1979 MAMMO SCREENING 1979 YEARLY PREVENTIVE VISIT 1979 COVID-19 Vaccine (#1) 03/30/1980 Pneumococcal Vaccine: Pediatrics (0 to 5 Years) and At-Risk Patients (6 to 64 Years) (1 of 2 - PCV) 09/27/1985 HIV SCREENING 09/27/1994 HEPATITIS C SCREENING 09/27/1997 PAP 09/27/2000 LIPID 2019 DTAP/TDAP/TD IMMUNIZATION (6 - Td or Tdap) 06/30/2022 06/30/2012, 06/30/2012, 02/07/2011, Additional history exists GLUCOSE 10/08/2022 10/09/2019 INFLUENZA VACCINE (#1) 01/01/202305/20/ 8, 05/18/2006, 05/18/2006 PHQ-2 (once per calendar year) 2023 HPV IMMUNIZATION Aged Out No longer e ligible based on patient's age to complete this topic IPV IMMUNIZATION Aged Out No longer e ligible based on patient's age to complete this topic MENINGITIS IMMUNIZATION Aged Out No l onger eligible based on patient's age to complete this topic RSV MONOCLONAL ANTIBODY Aged Out No l onger eligible based on patient's age to complete this topic Care Teams Metal Bonding Assembler Relationship Specialty Start Date End Date Zoltan Young MD [facility] [address] [place] [address] PCP - General Family Practice 04/12/19 Jonathon Pelayo PA-C [facility] [address] [place] [address] Physician Manga Artist Physician Manga Artist 04/04/19
--- OUTSIDE RECORDS SUMMARY | 2023-06-15 10:16 | XMS_ITS | Encounter Summary ---
Author Name Unknown Organization [facility] Address [address] [place] [address] Care Team Providers Care Welding Machine Assembler Name Role Phone Jonathon Pelayo PA-C Unavailable [phone] Zoltan Young MD Primary Care Provider Abi Echeverria MD Unavailable [phone] Chase Florentino MD Unavailable Encounter Details Date Type Department Care Team (Late st Contact Info) Description 11/17/2019 [facility] Medical Advice [facility] [address] [place] [id number] Phuong Acuna, RN Social History Tobacco Use Types Packs/Day Years Used Date Smoking Tobacco: Never Smokeless Tobacco: Never Alcohol Use Standard Drinks/Week Comments Not Currently 0 (1 standard drink = 0.6 oz pur e alcohol) Sex and Gender Information Value Date Recorded Sex Assigned at Female 10/01/2019 8:04 PM CDT Gender Identity Female 10/01/2019 8:04 PM CDT Sexual Orientation Straight 10/01/2019 8: 04 PM CDT COVID-19 Exposure Response Date Recorded In the last month, have you been in contact with someone who was confirmed or suspected to have Coronavirus / COVID-19? No / Unsure 11/15/2019 2:11 PM CDT documented as of this encounter Plan of Treatment Not on file documented as of this encounter Visit Diagnoses Not on filedocumented in this encounter Care Teams Welding Machine Assembler Relationship Specialty Start Date End Date Zoltan Young MD [facility] [address] [place] [address] PCP - General Family Practice 04/12/19 Jonathon Pelayo PA-C [facility] [address] [place] [address] Physician Superintendent Of Generation Physician Superintendent Of Generation 04/04/19 Abi Echeverria MD [address] [place] [address] [address] [place] [address] Assigned PCP 09/07/19 11/14/20 Chase Florentino MD [address] [place] [id number] Assigned Musculoskeletal Provider 02/23/20 11/23/20 documented as of this encounter
--- OUTSIDE RECORDS SUMMARY | 2023-06-15 10:16 | XMS_ITS | Encounter Summary ---
Author Name Unknown Organization [facility] Address [address] [facility] [place] [address] Care Team Providers Care Auto Seat Cover Installer Name Role Phone Jonathon Pelayo PA-C Unavailable Zoltan Young MD Primary Care Provider [phone] Abi Echeverria MD Unavailable [phone] Chase Florentino MD Unavailable Encounter Details Date Type Department Care Team (Late st Contact Info) Description 09/20/2019 [facility] Medical Advice [facility] [address] [place] [phone] [facility] Social History Tobacco Use Types Packs/Day [...] on filedocumented in this encounter Care Teams Auto Seat Cover Installer Relationship Specialty Start Date End Date Zoltan Young MD [facility] [address] [place] [address] PCP - General Family Practice 04/12/19 Jonathon Pelayo PA-C [facility] [address] [facility] [address] [place] [address] Physician Patternmaker Pressure Cast Physician Patternmaker Pressure Cast 04/04/19 Abi Echeverria MD [address] [facility] [address] [place] [address] Assigned PCP 09/07/19 11/14/20 Chase Florentino MD [facility] [address] [place] [address] Assigned Musculoskeletal Provider 02/23/20 11/23/20 documented as of this encounter
== END 2023-06-15 10:04 | disposition home or self-care (01) ==
PROVIDERS: PCP Family Medicine; Visit Provider Family Medicine
DX: Z01.818 Encounter for other preprocedural examination (principal); D68.51 Activated protein C resistance; E16.1 Other hypoglycemia; R79.89 Other specified abnormal findings of blood chemistry; R73.03 Prediabetes; R63.5 Abnormal weight gain; E28.2 Polycystic ovarian syndrome; E87.6 Hypokalemia; R53.83 Other fatigue
CPT/HCPCS: 80061; 84443

== ENCOUNTER 2024-05-08 10:59 | Outpatient (CLI) | payer MEDICARE, BC, SELFPAY | END 2024-05-08 11:00 | disposition home or self-care (01) | LOC: LKVREF 11:02 | PROVIDERS: PCP Family Medicine; Visit Provider Family Medicine | DX: E78.00 Pure hypercholesterolemia, unspecified (principal); E87.6 Hypokalemia; E16.1 Other hypoglycemia; R53.83 Other fatigue; E66.9 Obesity, unspecified; Z79.899 Other long term (current) drug therapy | CPT/HCPCS: 80053; 80061; 84443 ==